=== PATIENT | female | born 1960 | race Caucasian/White ===

== ENCOUNTER 2017-03-05 07:56 | Day surgery (SDC) | payer OTHER ==
--- NOTE | 2017-03-01 19:50 | HP ---
PREOPERATIVE HISTORY AND PHYSICAL: DATE OF ADMISSION: 03/05/17 PROVIDER: Howard Norton MD * (DICTATED BY BO SCHAFER) CHIEF COMPLAINT: Left ankle pain. HISTORY OF PRESENT ILLNESS: Pushpa is a 56-year-old female who has been followed by Dr. Norton for ongoing pain in left ankle secondary to posterior tibial tendonitis. She underwent Kidner procedure with calcaneal osteotomy on 06/12/16. She has done okay; however, she has noticed an increase in forefoot pain as well as some pain in the posterior aspect of her heel. She thinks that the hardware is causing some discomfort and is interested in surgical intervention for hardware removal. PAST MEDICAL HISTORY: 1. Obstructive sleep apnea. 2. Hypertension. 3. Obesity. 4. Mitral valve disorder. 5. Hyperlipidemia. 6. Tricuspid valve disorder. PAST SURGICAL HISTORY: 1. Left foot bunionectomy. 2. Left foot neuroma and scar tissue excision. 3. Malignant melanoma excision in the right upper arm. 3. Dermatofibroma excision. She reports no complications with the anesthesia with those procedures. CURRENT MEDICATIONS: 1. Losartan 25 mg 1 p.o. every day. 2. Ursodiol 300 mg 2 tabs p.o. b.i.d. 3. Levothyroxine sodium 50 mcg 1 p.o. every day. 4. Probiotic 1 p.o. b.i.d. 5. CPAP nightly. 6. Vitamin D3, 1000 units 2 tabs p.o. every day. 7. B12 sublingual daily. ALLERGIES: NICKEL, TRIPLE ANTIBIOTIC OINTMENT, SULFA ANTIBIOTICS, MACROBID, CIPRO, BANDAGES, and CARDIZEM. SOCIAL HISTORY: She lives with her . She is employed at [employer]. She denies tobacco use. She drinks alcoholic beverages rarely. REVIEW OF SYSTEMS: Constitutional: Negative for recent hospitalization, fevers , chills, night sweats, or unexplained weight loss. Head: Negative for headache, lightheadedness, or balance problems. Cardiovascular: Negative for chest or arm pain with exertion. Positive for heart murmur. Negative for heart palpitations. Positive for high blood pressure. Negative for embolism or deep vein thrombosis. Respiratory: Negative for chronic cough, shortness of breath with exertion, asthma, or COPD. Gastrointestinal: Negative for heartburn, nausea, vomiting, diarrhea, constipation, or GERD. Genitourinary: Negative for nighttime urination, frequency of urination, urinary tract infections, or kidney problems. Musculoskeletal: Negative for chronic back pain or recent fractures. Skin: Negative for rashes, lesions, lumps, or sores. Neurologic: Negative for seizure, stroke, epilepsy, depression, or anxiety. Endocrine: Negative for diabetes. Positive for hypothyroidism. Hematology: Negative for easy bleeding, bruising, or anemia. PHYSICAL EXAMINATION GENERAL: She is a well-developed, well-nourished heavy set female, in no acute distress at rest. She is alert and oriented x3 with appropriate mood and affect. VITAL SIGNS: The patient is 5 feet 4-1/2 inches, 211 pounds. Blood pressure 154/84, pulse 66, respirations 14. HEENT: Normocephalic, atraumatic. Hearing and vision are grossly intact. NECK: Trachea is midline. RESPIRATORY: Lungs are clear to auscultation bilaterally. No wheezes, rales, or rhonchi. CARDIOVASCULAR: Regular rate and rhythm. No murmurs, rubs, or gallops. Normal S1, S2. ABDOMEN: Soft, nondistended, and nontender. Normal bowel sounds. EXTREMITIES: Exam of the left lower extremity; skin is intact without abrasions or open wounds. The incisions to the medial, lateral, and posterior aspect of the foot are well healed. She has neutral hindfoot alignment. She has 5/5 hindfoot strength. She is tender to palpation still along the posterior tendon and the plantar aspect of the heel. Sensation to light touch is intact in all nerve distributions. She has a 2+ dorsalis pedis pulse. IMPRESSION: Painful hardware of the left foot. PLAN: The patient is to undergo left foot hardware removal by Dr. Norton . The risk, benefits, and postoperative course were discussed with the patient at length and she would like to proceed. A prescription for oxycodone was sent to her pharmacy for postoperative pain. All of her questions were answered to her full satisfaction. We will follow up with the patient in the postoperative phase. BO SCHAFER [id number]/[facility] #: [id number] SELAM
[~2017-03-05 07:56] MED LIST: Buffered Lidocaine 0.9% SYRIN* 5 ML/SYR SYRINGE INTRADERM ONE; Buffered Lidocaine 0.9% SYRIN* 5 ML/SYR SYRINGE ONE; DiMENhydriNATE IV* 50 MG/ML VIAL IV PUSH PRN; Famotidine IV* 10 MG/ML 2 ML (20 mg) IV ONE; Famotidine IV* 10 MG/ML 2 ML (20 mg) ONE; Morphine INJ* 2 MG/ML 1 ML CARPUJECT IV PRN; Naloxone* 0.4 MG/ML 1 ML VIAL IV PRN; PROCHLORPERAZINE INJ 5 MG/ML 2 ML VIAL IV PRN; Scopolamine 1.5 mg* PATCH TRANSDERM PRN; ceFAZolin 2 GM PREMIX (*) 0 GM/0 ML BAG IVPB ONE; fentaNYL* 50 MCG/ML 2 ML VIAL (100 MCG VIAL) IV PRN; oxyCODONE/Acetamin 5/325 MG* TAB PO PRN
[2017-03-05] MEDS ORDERED: Famotidine IV* 10 MG/ML 2 ML (20 mg) ONE (08:19)
[2017-03-05] MEDS ORDERED: Buffered Lidocaine 0.9% SYRIN* 5 ML/SYR SYRINGE ONE (08:19)
[2017-03-05] MEDS ORDERED: ceFAZolin 2 GM PREMIX (*) 2 GM/50 ML BAG IVPB ONE (08:19)
[2017-03-05] MEDS ORDERED: Midazolam* 1 MG/ML 10 ML VIAL (10 MG) ONE (08:36)
[2017-03-05] MEDS ORDERED: KETAMINE HCL* 50 MG/ML 10 ML VIAL ONE (08:36)
[2017-03-05] MEDS ORDERED: fentaNYL* 50 MCG/ML 2 ML VIAL (100 MCG VIAL) ONE (08:36)
[2017-03-05] MEDS ORDERED: Bupivacaine 0.5% SDV PF* 10-30ML VIAL ONE (09:22)
[2017-03-05] MEDS ORDERED: Ketorolac INJ* 30 MG/ML 1 ML VIAL ONE (09:53)
[2017-03-05] MEDS ORDERED: Propofol* 10 MG/ML 20 ML BTL IV PUSH ONE (09:53)
[2017-03-05] MEDS ORDERED: Ondansetron INJ* 2 MG/ML VIAL ONE (09:53)
[2017-03-05] MEDS ORDERED: Lidocaine 2% PF * 5 ML VIAL ONE (09:53)
[2017-03-05] MEDS ORDERED: Dexamethasone IV* 4 MG/ML 1 ML (4 MG) ONE (09:53)
[2017-03-05 11:51] VITALS: BP 136/83
--- NOTE | 2017-03-06 11:32 | OP ---
DATE OF OPERATION: 03/05/17 - [facility] DATE OF : 58 ATTENDING SURGEON: Howard Norton MD ANESTHESIOLOGIST: Alton Leiva ANESTHESIA: Monitored Anesthesia Care PRE-OP DIAGNOSIS: Painful left heel screw from previous calcaneal osteotomy. POST-OP DIAGNOSIS: Painful left heel screw from previous calcaneal osteotomy ( removal of the screw, left heel). DESCRIPTION OF PROCEDURE: The patient was taken to the operating room where a standard prep and drape was used. We opened up a 1 cm incision through the previous scar at the left heel. The guidepin was placed along the cannulated screw track and then the cannulated screwdriver used to remove the screw. We then irrigated the wound and closed with interrupted Prolene sutures and a compression dressing applied. [id number]/[facility] #: [id number] SELAM
[2017-03-08] MEDS ORDERED: Scopolamine PATCH Remove* 1 NOTE MISC PATCH OFF ONE (05:52)
== END 2017-03-05 11:52 | disposition home or self-care (01) ==
LOC: OR 07:56
PROVIDERS: ATTEND Orthopaedic Surgery
DX: T84.84XA Pain due to internal orthopedic prosthetic devices, implants and grafts, initial encounter (principal); Y83.1 Surgical operation with implant of artificial internal device as the cause of abnormal reaction of the patient, or of later complication, without mention of misadventure at the time of the procedure; M79.672 Pain in left foot; I10 Essential (primary) hypertension; G47.33 Obstructive sleep apnea (adult) (pediatric); E78.5 Hyperlipidemia, unspecified; I08.1 Rheumatic disorders of both mitral and tricuspid valves; R01.1 Cardiac murmur, unspecified; E03.9 Hypothyroidism, unspecified
CPT/HCPCS: 88300; J0690; J1100; J1885; J2250; J2405; J2704; J3010

== ENCOUNTER 2018-07-08 10:55 | Emergency (ER) | payer OTHER ==
--- OUTSIDE RECORDS SUMMARY | 2018-07-08 13:13 | XMS REPORT | Continuity of Care Document ---
:1960 External Reference #:[id number] Author Name Jimbo Catalan M.D. Address [address] [place] [address] Care Team Providers Name Role Phone David Mobley NP Care Team Information Senior Production Supervisor Unavailable David Mobley NP Primary Care Physician Unavailable Payers Date Identification Numbers Payment Provider Subscriber Policy Number: [id number] [employer] Pushpa [place] PayID: [id number] [address] [place] [address] Family History Date Family Member(s) Observation Comments Father Enlarged heart Father due to Heart Attack () Father A-Fib Father High BP Father Glasses Mother Mitral Valve Murmur Mother due to Congestive Heart Failure () Mother High BP Mother CHF Mother Renal Failure Social History Type Date Description Comments Sex Unknown ETOH Use Denies alcohol use Tobacco Use Start: Unknown Patient has never smoked Smoking Status Reviewed: 06/26/18 Patient has never smoked Allergies, Adverse Reactions, Alerts Active Allergies Reaction Severity Comments Date Nickel 06/26/2018 Latex 06/26/2018 Vital Signs Date Vital Result Comment 06/26/2018 10:49am Intraocular Pressure Right Eye 18 mmHg Intraocular Pressure Left Eye 18 mmHg Procedures Date Code Description Status 06/26/2018 80372 Fundus Photography W/Interpretation & Report Completed 06/26/2018 62889 Ophthalmoscopy Initial Completed 06/26/2018 73090 Eye Exam New Comprehensive Completed Plan of Treatment Future Appointment(s):07/15/2018 8:30 am - Jimbo Catalan M.D. at [facility]5106/26/2018 - Jimbo Catalan M.D.H40.023 Open angle with borderline findings, high risk, bilateralFollow up:VF OCT CCT few [id number] Dry eye syndrome of bilateral lacrimal glandsFollow up:VF OCT CCT few weeks
--- OUTSIDE RECORDS SUMMARY | 2018-07-08 13:13 | XMS REPORT | Continuity of Care Document ---
:1960 External Reference #:[id number] Author Name Gerda Llanes Care Team Providers Name Role Phone David Mobley NP Primary Care Physician Unavailable Payers Date Identification Numbers Payment Provider Subscriber Policy Number: [id number] [employer] Number: [id number] [id number] PayID: [id number] [place] [address] Advance Directives Type Date Description Status Comment Other Directive 06/12/2017 Health Care Proxy Current and Verified Problems Active Problems Provider Date Rheumatic mitral regurgitation Erwin Dorado M.D. Onset: 06/12/2013 Tricuspid valve disorder, non-rheumatic Erwin Dorado M.D. Onset: Hyperlipidemia Erwin Dorado M.D. Onset: 06/12/2013 Mitral valve disorder Erwin Dorado M.D. Onset: 07/29/2013 Obesity Anh Gustafson MD Onset: 01/28/2015 Essential hypertension Forrest Meyer M.D. Onset: 03/11/2015 Obstructive sleep apnea syndrome Anh Gustafson MD Onset: 05/20/2015 Infiltrating duct carcinoma of breast David Mobley NP Onset: 03/12/2018 Family History Date Family Member(s) Observation Comments General Thyroiditis Another sister has sarcoidosis and primary biliary cholangiitis Father due to MS () Father MS Mother due to CHF () Mother Congestive Heart Failure (CHF) Mother due to Diabetes () First Son auto immune disease First Daughter Hypothyroidism First Daughter Obesity Second Daughter blot clot clavicular blood clot Onset: Siblings 5 1 sister Sarcoid, PBC (02/2015) 1 sister Teressa's thyroiditis, psoriasis 1 sister Psoriatric arthritis 1 brother dgd 1 brother alive and well First Brother Hypertension First Brother Aortic Stenosis Second Brother Hypertension back surgery First Sister hyperparathyroidism First Sister Lupus Second Sister Cirrhosis bilary Second Sister scarcoidosis breast CA, HTN Third Sister Hypertension hypothyroidism, aneurysym, DM II, obesity, Alcoholism, Psoriasis. 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 ETOH Use Denies alcohol use Tobacco Use Start: Unknown End: Patient is a former 2 years, < 1/2 PPD Unknown smoker quite in 1998 Recreational Drug Use Denies Drug Use Smoking Status Reviewed: 07/01/18 Patient is a former 2 years, < 1/2 PPD smoker quite in 1998 Exercise Type/Frequency Exercises rarely Exercise Type/Frequency walking Allergies, Adverse Reactions, Alerts Active Allergies Reaction Severity Comments Date Triple Antibiotic lip swelling, nose 06/12/2013 Ointment swelling at application site Sulfa Antibiotics hives 06/12/2013 Macrobid 09/24/2013 Cipro 03/11/2015 Bandages 04/02/2015 Cardizem CD SOB,nausea, chest Severe 05/06/2015 pain Nickel blistering,itching 04/18/2017 Psyllium hives 12/07/2017 Amoxicillin Hives 01/28/2018 Eggs or Egg-derived 04/09/2018 Products Medications Active Medications SIG Qnty Indications Ordering Date Provider Lasix 1 tab by mouth x1 14tabs I42.9 Yael S. 06/13/2018 20mg Tablets and then prn Deejay, N.P. Wrist Splint use daily to help 2units M35.01 Manny Pickett, 04/09/2018 Misc with numbness and M.D. tingling in the right hand Diagnosis g56.01 Metoprolol Succinate 1 tab by mouth 90tabs I42.9 Forrest Myers 12/07/2017 ER every day Lizeth Meyer 25mg Tablets ER 24HR Losartan Potassium 1 by mouth every 90tabs Yael S. 11/06/2017 25mg day Deejay, N.P. Tablets Diphenhydramine HCL Unknown 25mg Tablets Colace 1 tab every 12 Unknown 100mg Capsules hours as needed for constipation Ondansetron dissolve one tablet Unknown 4mg Tablets orally every 8 Dispers hours as needed for nausea. TC Chemo Unknown Levothyroxine Sodium Take 1 Tablet By 90tabs David Mobley NP Mouth Every Day 50mcg Tablets Vitamin D3 High 1 by mouth every Unknown Potency day 1000Unit Capsules Cpap nightly Unknown Device Ursodiol 2 by mouth am and 180caps Unknown 300mg Capsules pm History Medications Calcipotriene apply a thin 60gm L40.9 Manny Pickett, 04/09/2018 - 0.005% layer twice daily M.D. 06/12/2018 Cream as needed for psoriasis Oxycodone HCL 1 tabs by mouth 14tabs Howard Norton 02/27/2017 - 5mg every 6 hours as M.D. 10/05/2017 Tablets needed Losartan Potassium 2 by mouth every 90tabs Forrest Myers 02/07/2017 - 25mg day Lizeth Meyer 11/06/2017 Tablets Augmentin 1 tablet by mouth 20tabs H66.92 David Mobley NP 02/07/2017 - 875-125mg q12 hours for 10 02/18/2017 Tablets days Neomycin/Polymyxin/Hy 4 drops in each 30ml H60.8x2 David Mobley NP 2016 - drocortisone (Otic) ear four times a 02/21/2017 day for 7 days 3.5-22963-5 Solution Lisinopril 1 by mouth every 90tabs David Mobley NP 08/09/2016 - 10mg Tablets day 02/07/2017 Knee Scooter M76.822 Howard Norton, 06/23/2016 - M.D. 09/14/2016 Oxycodone HCL 1-2 tabs by mouth 40tabs Howard Norton 06/02/2016 - 5mg every 4-6 hours M.D. 06/17/2016 Tablets as needed Walker use as needed for 1units M76.822 Howard Norton, 05/31/2016 - [facility] [place] M.D. 01/17/2017 bearing after surgery D3 High Potency 2 tablets Unknown 01/24/2016 - 01/26/2016 1000Unit Capsules Atenolol 1/2 tab by mouth 45tabs Forrest Myers 04/08/2015 - 25mg Tablets every day Lizeth Meyer 01/24/2016 Cardizem CD 1 by mouth once a 30caps I10 Forrest Myers 04/02/2015 - 120mg Caps day Lizeth Meyer 04/08/2015 ER 24HR Atenolol 1 by mouth every 90tabs I10 Forrest Myers 03/11/2015 - 25mg Tablets day Lizeth Meyer 04/02/2015 Omeprazole 1 by mouth daily Unknown 01/27/2015 - 20mg Tablets in the morning in 03/10/2015 empty stomach Neulasta Unknown - 6mg/0.6ML Soln 06/12/2018 Prefill Syringe Vitamin B12 SL daily Unknown - 3000mcg/ML 06/12/2018 Liquid Vitamin B12/Folic 1 every day ( pt Unknown - Acid not sure about 01/27/2018 Tablets dosage) Tumersaid 1 by mouth daily Unknown - Tablets 10/05/2017 Vitamin B-12 1 by mouth every Unknown - 100mcg day 10/05/2017 Tablets [place] Oil apply as needed Unknown - Oil 09/14/2016 Tumersaid 1 po daily Unknown - Tablets 12/04/2016 Bee 4 tab po daily Unknown - Buceaq-Wgtfbtip-Bcrnh prn 05/23/2016 jelly Tablets Vitamin B 12 sublingual prn Unknown - 12/04/2016 Curcumin Extract one daily Unknown - 95% 01/26/2016 Powder Probiotic 1 by mouth every Unknown - Capsules day 10/05/2017 Prednisone (Phong) take as directed Unknown - 10mg 03/10/2015 Tablets Doxycycline Hyclate one tablet twice Unknown - daily for 10 03/10/2015 100mg Capsules days. Lisinopril 1 by mouth every Unknown - 2.5mg day (restarted 01/27/2015 Tablets 08/23) Zinc every day Unknown - 50mg Tablets 01/27/2015 Vitamin D High 1 by mouth every Unknown - Potency day 08/21/2013 1000Unit Capsules Hydroxyzine HCL prn Unknown - 25mg 08/07/2013 Tablets Clarisse-D 24 Hour 1 by mouth daily 30tabs Unknown - Allergy & Congestion as needed for 08/07/2013 allergy symptoms 180-240mg Tablets ER 24HR Doxycycline Hyclate 1 by mouth every 10tabs Unknown - day 07/29/2013 100mg Tablets Immunizations CPT Code Status Date Vaccine Reaction Lot # [id number] Given 11/09/2017 Influenza Virus Vaccine, Quadrivalent, Split, Preservative Free 84160 Given 11/24/2016 Zoster (Zostavax) No immediate [id number] reaction.. 52700 Given 11/18/2014 Influenza Virus 3Yrs & Over Vital Signs Date Vital Result Comment 07/01/2018 7:09am Height 64.25 inches 5'4.25" Weight 219.50 lb Heart Rate 56 /min BP Systolic Sitting 116 mmHg Lue large cuff BP Diastolic Sitting 70 mmHg Lue large cuff Respiratory Rate 12 /min O2 % BldC Oximetry 97 % BMI (Body Mass Index) 37.4 kg/m2 Neck Circumference in inches 15.50 06/13/2018 8:42am Height 64.25 inches 5'4.25" Weight 215.75 lb Clothes/shoes Heart Rate 76 /min BP Systolic Sitting 158 mmHg left arm BP Diastolic Sitting 100 mmHg left arm BP Systolic Standing 154 mmHg left arm BP Diastolic Standing 100 mmHg left arm BMI (Body Mass Index) 36.7 kg/m2 Ejection Fraction 65-70% Echo 11/30/2017 05/16/2018 2:48pm Height 64.25 inches 5'4.25" Weight 197.50 lb Heart Rate 80 /min BP Systolic 112 mmHg BP Diastolic 76 mmHg Body Temperature 98.3 F O2 % BldC Oximetry 94 % BMI (Body Mass Index) 33.6 kg/m2 05/13/2018 1:29pm Height 64.25 inches 5'4.25" Weight 212.12 lb Heart Rate 85 /min BP Systolic 126 mmHg BP Diastolic 78 mmHg Pain Level 3 O2 % BldC Oximetry 97 % BMI (Body Mass Index) 36.1 kg/m2 04/09/2018 9:28am Height 64.25 inches 5'4.25" Weight 215.00 lb Heart Rate 71 /min BP Systolic Sitting 144 mmHg BP Diastolic Sitting 86 mmHg Respiratory Rate 14 /min Pain Level 2 BMI (Body Mass Index) 36.6 kg/m2 01/29/2018 10:01am Height 64.25 inches 5'4.25" Weight 207.25 lb Heart Rate 64 /min BP Systolic Sitting 138 mmHg Lue large cuff BP Diastolic Sitting 78 mmHg Lue large cuff Respiratory Rate 14 /min O2 % BldC Oximetry 97 % On Ra BMI (Body Mass Index) 35.3 kg/m2 01/28/2018 8:41am Height 64.25 inches 5'4.25" Weight 207.50 lb no shoes Heart Rate 76 /min left radial, regular BP Systolic Sitting 165 mmHg lt arm BP Diastolic Sitting 100 mmHg lt arm BP Systolic Standing 139 mmHg repeat left arm sitting BP Diastolic Standing 82 mmHg repeat left arm sitting BMI (Body Mass Index) 35.3 kg/m2 Ejection Fraction 65-70% ech0 11/30/17 12/07/2017 7:52am Height 64.25 inches 5'4.25" Weight 209.00 lb w/ shoes Heart Rate 52 /min BP Systolic Sitting 150 mmHg Lue reg cuff BP Diastolic Sitting 85 mmHg Lue reg cuff BP Systolic Standing 150 mmHg Lue reg cuff BP Diastolic Standing 90 mmHg Lue reg cuff Respiratory Rate 18 /min BMI (Body Mass Index) 35.6 kg/m2 Ejection Fraction 65-70% 11/30/17 ECHO 11/06/2017 11:03am Height 64.25 inches 5'4.25" Weight 209.00 lb w/o shoes Heart Rate 60 /min BP Systolic Sitting 152 mmHg Lue lg cuff BP Diastolic Sitting 90 mmHg Lue lg cuff BP Systolic Standing 148 mmHg lue repeat sitting BP Diastolic Standing 80 mmHg lue repeat sitting BMI (Body Mass Index) 35.6 kg/m2 Ejection Fraction 60-65% Echo 06/07/16 10/05/2017 11:34am Height 64.25 inches 5'4.25" Weight 209.00 lb with shoes Heart Rate 68 /min BP Systolic 126 mmHg BP Diastolic 72 mmHg Body Temperature 98.1 F O2 % BldC Oximetry 98 % BMI (Body Mass Index) 35.6 kg/m2 04/18/2017 4:13pm Height 64.25 inches 5'4.25" Heart Rate 68 /min BP Systolic 132 mmHg BP Diastolic 80 mmHg Respiratory Rate 16 /min Pain Level 2 03/15/2017 11:22am Height 64.25 inches 5'4.25" Weight 206.00 lb Heart Rate 67 /min BP Systolic 128 mmHg BP Diastolic 76 mmHg Respiratory Rate 17 /min Body Temperature 97.5 F Pain Level 0 BMI (Body Mass Index) 35.1 kg/m2 02/27/2017 11:32am Height 64.25 inches 5'4.25" Weight 211.00 lb Heart Rate 66 /min Respiratory Rate 14 /min Body Temperature 97.2 F Pain Level 3 BMI (Body Mass Index) 35.9 kg/m2 02/22/2017 3:23pm Height 64.25 inches 5'4.25" Weight 211.12 lb with shoes Heart Rate 72 /min BP Systolic Sitting 158 mmHg LA, reg cuff BP Diastolic Sitting 84 mmHg LA, reg cuff BP Systolic Standing 138 mmHg la repeat sitting BP Diastolic Standing 72 mmHg la repeat sitting BMI (Body Mass Index) 36.0 kg/m2 Ejection Fraction 60%-65% echo 06/07/16 02/07/2017 2:56pm Height 64.25 inches 5'4.25" Weight 208.75 lb Heart Rate 75 /min BP Systolic 140 mmHg BP Diastolic 80 mmHg BP Systolic Recheck 132 mmHg BP Diastolic Recheck 82 mmHg Body Temperature 97.9 F O2 % BldC Oximetry 97 % BMI (Body Mass Index) 35.5 kg/m2 01/26/2017 1:54pm Height 64.5 inches 5'4.50" Weight 208.00 lb BP Systolic 124 mmHg BP Diastolic 76 mmHg Respiratory Rate 18 /min Body Temperature 98.3 F Pain Level 3 BMI (Body Mass Index) 35.1 kg/m2 01/18/2017 3:13pm Height 64.5 inches 5'4.50" Weight 215.00 lb Heart Rate 68 /min BP Systolic Sitting 122 mmHg BP Diastolic Sitting 84 mmHg Respiratory Rate 14 /min O2 % BldC Oximetry 99 % BMI (Body Mass Index) 36.3 kg/m2 01/12/2017 3:03pm Height 64.5 inches 5'4.50" Weight 208.00 lb Heart Rate 64 /min BP Systolic 122 mmHg BP Diastolic 80 mmHg Body Temperature 97.4 F Pain Level 2 BMI (Body Mass Index) 35.1 kg/m2 12/22/2016 3:25pm Height 64.5 inches 5'4.50" Weight 208.00 lb BP Systolic 128 mmHg BP Diastolic 84 mmHg Respiratory Rate 20 /min Pain Level 5 BMI (Body Mass Index) 35.1 kg/m2 12/21/2016 3:18pm Height 64.5 inches 5'4.50" Weight 208.00 lb BMI (Body Mass Index) 35.1 kg/m2 12/05/2016 2:56pm Height 64.5 inches 5'4.50" Weight 207.00 lb w/o shoes Heart Rate 66 /min BP Systolic Sitting 136 mmHg LA reg cuff BP Diastolic Sitting 84 mmHg LA reg cuff BMI (Body Mass Index) 35.0 kg/m2 Ejection Fraction 60% -65% echo 06/07/16 11/17/2016 3:45pm Heart Rate 60 /min BP Systolic Sitting 135 mmHg BP Diastolic Sitting 95 mmHg Body Temperature 97.8 F Pain Level 3 09/15/2016 3:49pm Height 65.25 inches 5'5.25" Weight 208.00 lb Heart Rate 62 /min BP Systolic 130 mmHg BP Diastolic 85 mmHg Body Temperature 98.2 F Pain Level 3 BMI (Body Mass Index) 34.3 kg/m2 08/17/2016 8:52am Height 64 inches 5'4" Weight 210.00 lb BP Systolic 122 mmHg BP Diastolic 87 mmHg Respiratory Rate 16 /min Body Temperature 97.6 F Pain Level 0 BMI (Body Mass Index) 36.0 kg/m2 07/21/2016 9:56am Height 64 inches 5'4" Weight 210.00 lb Heart Rate 72 /min BP Systolic 140 mmHg BP Diastolic 84 mmHg Respiratory Rate 16 /min Body Temperature 98.3 F Pain Level 0 BMI (Body Mass Index) 36.0 kg/m2 07/14/2016 10:13am Height 64 inches 5'4" Weight 210.00 lb Heart Rate 70 /min BP Systolic 134 mmHg BP Diastolic 81 mmHg Body Temperature 97.9 F BMI (Body Mass Index) 36.0 kg/m2 07/07/2016 3:36pm Height 64 inches 5'4" Weight 210.00 lb BP Systolic 142 mmHg BP Diastolic 91 mmHg Body Temperature 98.0 F Pain Level 0 BMI (Body Mass Index) 36.0 kg/m2 06/23/2016 9:36am Height 64 inches 5'4" Weight 210.00 lb BP Systolic 137 mmHg BP Diastolic 71 mmHg Respiratory Rate 16 /min Body Temperature 97.1 F Pain Level 1 BMI (Body Mass Index) 36.0 kg/m2 06/20/2016 2:09pm Height 64 inches 5'4" Weight 210.00 lb Body Temperature 98.7 F Pain Level 4 BMI (Body Mass Index) 36.0 kg/m2 05/31/2016 8:58am Height 64 inches 5'4" Weight 210.00 lb Heart Rate 61 /min BP Systolic 130 mmHg BP Diastolic 70 mmHg Respiratory Rate 16 /min Body Temperature 96.8 F Pain Level 2 BMI (Body Mass Index) 36.0 kg/m2 05/30/2016 10:08am Weight 210.75 lb Heart Rate 81 /min BP Systolic 144 mmHg BP Diastolic 82 mmHg Body Temperature 97.9 F O2 % BldC Oximetry 98 % 05/24/2016 11:40am Height 64 inches 5'4" Weight 207.00 lb w/shoes Heart Rate 64 /min BP Systolic Sitting 142 mmHg LA lg cuff BP Diastolic Sitting 80 mmHg LA lg cuff BP Systolic Standing 138 mmHg la repeat sitting BP Diastolic Standing 71 mmHg la repeat sitting BMI (Body Mass Index) 35.5 kg/m2 Ejection Fraction 55% Stress Test 08/19/15 05/17/2016 3:24pm Height 64 inches 5'4" Heart Rate 76 /min BP Systolic 126 mmHg BP Diastolic 76 mmHg Respiratory Rate 20 /min Pain Level 1 at rest O2 % BldC Oximetry 97 % 03/17/2016 3:33pm Height 64 inches 5'4" Weight 206.00 lb Heart Rate 64 /min Respiratory Rate 13 /min Pain Level 1 BMI (Body Mass Index) 35.4 kg/m2 01/27/2016 2:49pm Height 64 inches 5'4" Weight 206.00 lb with shoes Heart Rate 68 /min BP Systolic Sitting 138 mmHg LA reg cuff BP Diastolic Sitting 82 mmHg LA reg cuff BMI (Body Mass Index) 35.4 kg/m2 Ejection Fraction 55% stress test 08/19/15 01/25/2016 3:22pm Heart Rate 91 /min BP Systolic 118 mmHg BP Diastolic 74 mmHg Respiratory Rate 14 /min O2 % BldC Oximetry 97 % 01/17/2016 4:06pm Heart Rate 70 /min BP Systolic Sitting 122 mmHg BP Diastolic Sitting 80 mmHg Respiratory Rate 15 /min O2 % BldC Oximetry 98 % 01/07/2016 11:36am Height 64 inches 5'4" Weight 206.00 lb Heart Rate 66 /min BP Systolic 122 mmHg BP Diastolic 72 mmHg Body Temperature 97.5 F O2 % BldC Oximetry 98 % BMI (Body Mass Index) 35.4 kg/m2 12/16/2015 9:17am Height 65 inches 5'5" Weight 211.00 lb Pain Level 1 BMI (Body Mass Index) 35.1 kg/m2 07/20/2015 3:13pm Height 65 inches 5'5" Weight 204.75 lb Heart Rate 58 /min BP Systolic 124 mmHg BP Diastolic 86 mmHg Respiratory Rate 14 /min O2 % BldC Oximetry 98 % BMI (Body Mass Index) 34.1 kg/m2 06/14/2015 2:54pm Height 65 inches 5'5" Weight 204.75 lb with shoes Heart Rate 70 /min BP Systolic 130 mmHg LA reg cuff BP Diastolic 78 mmHg LA reg cuff BMI (Body Mass Index) 34.1 kg/m2 Ejection Fraction 60%-65% echo 05/24/15 05/20/2015 3:21pm Height 65 inches 5'5" Weight 206.00 lb Heart Rate 67 /min BP Systolic Sitting 142 mmHg BP Diastolic Sitting 78 mmHg Respiratory Rate 14 /min O2 % BldC Oximetry 98 % BMI (Body Mass Index) 34.3 kg/m2 05/06/2015 2:53pm Height 65 inches 5'5" Weight 206.00 lb with shoes BP Systolic Sitting 156 mmHg LA lg cuff BP Diastolic Sitting 76 mmHg LA lg cuff BP Systolic Standing 146 mmHg LA lg cuff BP Diastolic Standing 82 mmHg LA lg cuff BMI (Body Mass Index) 34.3 kg/m2 Ejection Fraction 55-60% date 08/29/13 ECHO 04/02/2015 2:51pm Height 65 inches 5'5" Weight 201.00 lb with out shoes Heart Rate 60 /min BP Systolic 126 mmHg home monitor BP Diastolic 69 mmHg home monitor BP Systolic Sitting 128 mmHg LA lrg cuff BP Diastolic Sitting 74 mmHg LA lrg cuff BP Systolic Standing 128 mmHg LA lrg cuff BP Diastolic Standing 78 mmHg LA lrg cuff Respiratory Rate 16 /min BMI (Body Mass Index) 33.4 kg/m2 Ejection Fraction 55-60% 08/29/13 03/11/2015 3:08pm Height 65 inches 5'5" Weight 200.25 lb w/shoes Heart Rate 70 /min BP Systolic Sitting 130 mmHg LA reg cuff BP Diastolic Sitting 90 mmHg LA reg cuff BP Systolic Lying Down 151 mmHg la sitting repeat BP Diastolic Lying Down 85 mmHg la sitting repeat BMI (Body Mass Index) 33.3 kg/m2 Ejection Fraction 55-60 echo 08/29/13 02/02/2015 4:43pm Height 65 inches 5'5" Weight 197.00 lb BMI (Body Mass Index) 32.8 kg/m2 01/28/2015 3:24pm Height 65 inches 5'5" Weight 197.38 lb Heart Rate 73 /min BP Systolic 130 mmHg BP Diastolic 80 mmHg Respiratory Rate 14 /min O2 % BldC Oximetry 96 % BMI (Body Mass Index) 32.8 kg/m2 Neck Circumference in inches 14.5 12/31/2014 4:00pm Height 65 inches 5'5" Weight 195.00 lb Pain Level 5 BMI (Body Mass Index) 32.4 kg/m2 09/24/2013 1:50pm Height 65 inches 5'5" Weight 191.75 lb Heart Rate 72 /min BP Systolic Sitting 114 mmHg left, reg BP Diastolic Sitting 78 mmHg left, reg BMI (Body Mass Index) 31.9 kg/m2 09/02/2013 11:59am Height 65 inches 5'5" Weight 191.75 lb Heart Rate 72 /min BP Systolic Sitting 130 mmHg left, reg BP Diastolic Sitting 84 mmHg left, reg BMI (Body Mass Index) 31.9 kg/m2 08/21/2013 2:29pm Height 65 inches 5'5" Weight 191.25 lb Heart Rate 80 /min BP Systolic Sitting 154 mmHg BP Diastolic Sitting 88 mmHg Respiratory Rate 15 /min BMI (Body Mass Index) 31.8 kg/m2 08/07/2013 3:15pm Heart Rate 72 /min BP Systolic Sitting 110 mmHg BP Diastolic Sitting 82 mmHg Respiratory Rate 16 /min 06/12/2013 1:34pm Height 65 inches 5'5" Weight 195.00 lb Heart Rate 68 /min BP Systolic 140 mmHg right arm, reg cuff BP Diastolic 86 mmHg right arm, reg cuff BP Systolic Sitting 144 mmHg left arm, reg cuff BP Diastolic Sitting 82 mmHg left arm, reg cuff BP Systolic Standing 140 mmHg left arm, reg cuff BP Diastolic Standing 82 mmHg left arm, reg cuff Respiratory Rate 16 /min BMI (Body Mass Index) 32.4 kg/m2 Results Test Date Facility Test Result H/L Range Note CBC Auto Diff 06/12/2018 [facility] White Blood 9.4 10^3/uL N 3.5-10.[address] [place] [address] [phone] Red Blood Count 3.53 10^6/uL Low 3.70-4.87 Hemoglobin 11.2 g/dL Low 12.0-16.0 Hematocrit 34 % Low 35-47 Mean Corpuscular Volume 95 fL N 80-97 Mean Corpuscular Hemoglobin 32 pg High 27-31 Mean Corpuscular HGB Conc 33 g/dL N 31-36 Red Cell Distribution Width 17 % High 10.5-15 Platelet Count 283 10^3/uL N 150-450 Mean Platelet Volume 8.9 fL N 7.4-10.4 Abs Neutrophils 7.0 10^3/uL N 1.5-7.7 Abs Lymphocytes 1.1 10^3/uL N 1.0-4.8 Abs Monocytes 1.2 10^3/uL High 0-0.8 Abs Eosinophils 0 10^3/uL N 0-0.6 Abs Basophils 0.1 10^3/uL N 0-0.2 Abs Nucleated RBC 0 10^3/uL Granulocyte % 74.4 % Lymphocyte % 11.2 % Monocyte % 12.9 % Eosinophil % 0.1 % Basophil % 1.4 % Nucleated Red Blood Cells % 0.2 Comp Metabolic Panel 06/12/2018 [facility] Sodium 140 mmol/L N 135-[address] [place] [address] [phone] Potassium 4.6 mmol/L N 3.5-5.0 Chloride 106 mmol/L N 101-111 Co2 Carbon Dioxide 26 mmol/L N 22-32 Anion Gap 8 mmol/L N 2-11 Glucose 94 mg/dL N 70-100 Blood Urea Nitrogen 19 mg/dL N 6-24 Creatinine 0.75 mg/dL N 0.51-0.95 BUN/Creatinine Ratio 25.3 High 8-20 Calcium 9.4 mg/dL N 8.6-10.3 Total Protein 6.7 g/dL N 6.4-8.9 Albumin 4.2 g/dL N 3.2-5.2 Globulin 2.5 g/dL N 2-4 Albumin/Globulin Ratio 1.7 N 1-3 Total Bilirubin 0.40 mg/dL N 0.2-1.0 Alkaline Phosphatase 131 U/L High 34-104 Alt 17 U/L N 7-52 Ast 25 U/L N 13-39 Egfr Non- 79.4 >60 Egfr 96.0 >60 1 Ssa/SSB Abs Igg 04/09/2018 [facility] SS-A/Ro Antibody <0.2 U [address] [place] [address] [phone] SS-B/La Antibody <0.2 U 3 Hla B27 04/09/2018 [facility] Hla B27 Negative [address] [place] [address] [phone] Hla B27 Interp See Comment 5 Laboratory test 04/09/2018 [facility] Vitamin D 37.4 ng/mL N 20-50 [address] Total 25(Oh) [place], [place] [id number] [phone] Erythrocyte Sed Rate 58 mm/Hr High 0-30 7 C Reactive Protein 7.83 mg/L N <8.01 8 Vitamin B6 04/09/2018 [facility] Pyridoxal 5-Phosphate 7 g/L 5-[address] [place], [place] [id number] [phone] Pyridoxic Acid 4 g/L 3-30 10 Celiac Hla 04/09/2018 [facility] Hla-Dqa1 SEE BELOW [address] [place], [place] [id number] [phone] [id number] SEE BELOW 12 Celiac Gene Pairs Present? Equivocal Celiac Gene Interpretation See Comment 13 Anca AB Ser If 04/09/2018 [facility] C-Anca Negative Negative [address] [place] [address] [phone] P-Anca Negative Negative 14 Vitamin B12 04/09/2018 [facility] Vitamin B12 > 1450 High 180- 914 [address] pg/[place] [address] [phone] Folic Acid (Folate) > 20.00 ng/mL >3.99 16 Laboratory 04/09/2018 [facility] Thyroperoxidase AB 0.34 IU/mL N <9 17 test finding [address] [place] [address] [phone] CMV Igg/Igm 04/09/2018 [facility] Cytomegalovirus Negative Negative [address] [place] [address] [phone] Cytomegalovirus IgM Antibody Negative Negative Comp Metabolic Panel 10/05/2017 [facility] Sodium 142 mmol/L N 135-[address] [place] [address] [phone] Potassium 4.3 mmol/L N 3.5-5.0 Chloride 106 mmol/L N 101-111 Co2 Carbon Dioxide 28 mmol/L N 22-32 Anion Gap 8 mmol/L N 2-11 Glucose 112 mg/dL High 70-100 Blood Urea Nitrogen 17 mg/dL N 6-24 Creatinine 0.79 mg/dL N 0.51-0.95 BUN/Creatinine Ratio 21.5 High 8-20 Calcium 10.1 mg/dL N 8.6-10.3 Total Protein 7.5 g/dL N 6.4-8.9 Albumin 4.6 g/dL N 3.2-5.2 Globulin 2.9 g/dL N 2-4 Albumin/Globulin Ratio 1.6 N 1-3 Total Bilirubin 0.40 mg/dL N 0.2-1.0 Alkaline Phosphatase 136 U/L High 34-104 Alt 25 U/L N 7-52 Ast 31 U/L N 13-39 Egfr Non- 75.0 >60 Egfr 90.8 >60 19 CBC Auto Diff 10/05/2017 [facility] White Blood 8.7 10^3/uL N 3.5-10.[address] [place] [address] [phone] Red Blood Count 3.94 10^6/uL Low 4.00-5.40 Hemoglobin 12.5 g/dL N 12.0-16.0 Hematocrit 37 % N 35-47 Mean Corpuscular Volume 93 fL N 80-97 Mean Corpuscular Hemoglobin 32 pg High 27-31 Mean Corpuscular HGB Conc 34 g/dL N 31-36 Red Cell Distribution Width 13 % N 10.5-15 Platelet Count 379 10^3/uL N 150-450 Mean Platelet Volume 9.7 um3 N 7.4-10.4 Abs Neutrophils 5.5 10^3/uL N 1.5-7.7 Abs Lymphocytes 2.4 10^3/uL N 1.0-4.8 Abs Monocytes 0.6 10^3/uL N 0-0.8 Abs Eosinophils 0.2 10^3/uL N 0-0.6 Abs Basophils 0.1 10^3/uL N 0-0.2 Abs Nucleated RBC 0 10^3/uL Granulocyte % 62.8 % N 38-83 Lymphocyte % 27.5 % N 25-47 Monocyte % 6.6 % N 0-7 Eosinophil % 2.1 % N 0-6 Basophil % 1.0 % N 0-2 Nucleated Red Blood Cells % 0.1 Laboratory test 10/05/2017 [facility] TSH (Thyroid 2.23 mcIU/mL N 0.34-5.[address] Stim [place]) [place] [address] [phone] Lyme Disease Serology Negative Negative 20 Vitamin B12 404 pg/mL N 180-914 21 Urinalysis Profile 10/05/2017 [facility] Urine Color Yellow 101 [place] [address] [phone] Urine Appearance Clear Urine Specific Bowen 1.009 Low 1.010-1.030 Urine pH 5.0 N 5-9 Urine Urobilinogen Negative Negative Urine Ketones Negative Negative Urine Protein Negative Negative Urine Leukocytes Negative Negative Urine Blood 1+ Abnormal Negative Urine Nitrite Negative Negative Urine Bilirubin Negative Negative Urine Glucose Negative Negative Urine White Blood Cell Trace(0-5/hpf) Absent Urine Red Blood Cell Trace(0-2/hpf) Absent Urine Bacteria Absent Absent Connective Tissue 10/05/2017 [facility] Anti-Nuclear 1.0 U [address] [place] [address] [phone] Cyclic Citrullinated Peptide <15.6 U 23 Interpretation See Comment 24 Laboratory test 10/05/2017 [facility] Rheumatoid Factor < 10 IU/ mL N <[address] [place] [address] [phone] Erythrocyte Sed Rate 61 mm/Hr High 0-30 C Reactive Protein 9.01 mg/L High <8.01 Hemoglobin A1c (Glyco HGB) 5.5 % N 4.0-5.6 25 Urine Culture And 10/05/2017 [facility] Urine Culture SEE RESULT [address] [place] [address] [phone] Laboratory test 03/05/2017 [facility] Surgical SEE RESULT [address] [place] [address] [phone] Liver Function 03/03/2017 [facility] Total Protein 7.5 g/dL N 6.4-[address] [place] [address] [phone] Albumin 4.5 g/dL N 3.2-5.2 Globulin 3.0 g/dL N 2-4 Albumin/Globulin Ratio 1.5 N 1-3 Total Bilirubin 0.50 mg/dL N 0.2-1.0 Direct Bilirubin 0.10 mg/dL N 0.03-0.18 Indirect Bilirubin 0.4 mg/dL N 0.3-1.0 Alkaline Phosphatase 119 U/L High 34-104 Alt 21 U/L N 7-52 Ast 30 U/L N 13-39 CBC Auto Diff 02/07/2017 [facility] White Blood 10.1 10^3/uL N 3.5-10.[address] [place] [address] [phone] Red Blood Count 3.99 10^6/uL Low 4.0-5.4 Hemoglobin 12.4 g/dL N 12.0-16.0 Hematocrit 37 % N 35-47 Mean Corpuscular Volume 92 fL N 80-97 Mean Corpuscular Hemoglobin 31 pg N 27-31 Mean Corpuscular HGB Conc 34 g/dL N 31-36 Red Cell Distribution Width 13 % N 10.5-15 Platelet Count 375 10^3/uL N 150-450 Mean Platelet Volume 9 um3 N 7.4-10.4 Abs Neutrophils 6.2 10^3/uL N 1.5-7.7 Abs Lymphocytes 2.9 10^3/uL N 1.0-4.8 Abs Monocytes 0.7 10^3/uL N 0-0.8 Abs Eosinophils 0.2 10^3/uL N 0-0.6 Abs Basophils 0.1 10^3/uL N 0-0.2 Abs Nucleated RBC 0 10^3/uL Granulocyte % 61.4 % N 38-83 Lymphocyte % 28.8 % N 25-47 Monocyte % 6.8 % N 1-9 Eosinophil % 2.1 % N 0-6 Basophil % 0.9 % N 0-2 Nucleated Red Blood Cells % 0 Laboratory test 02/07/2017 [facility] Vitamin B12 284 pg/mL N 180-[address] [place] [address] [phone] Laboratory test 12/30/2016 [facility] TSH (Thyroid 2.63 N 0.34 -5.[address] Stim Horm) mcIU/[place] [address] [phone] Basic Metabolic 12/30/2016 [facility] Sodium 138 mmol/L N 133- [address] [place] [address] [phone] Potassium 4.6 mmol/L N 3.5-5.0 Chloride 103 mmol/L N 101-111 Co2 Carbon Dioxide 28 mmol/L N 22-32 Anion Gap 7 mmol/L N 2-11 Glucose 101 mg/dL High 70-100 Blood Urea Nitrogen 19 mg/dL N 6-24 Creatinine 0.87 mg/dL N 0.51-0.95 BUN/Creatinine Ratio 21.8 High 8-20 Calcium 9.9 mg/dL N 8.6-10.3 Egfr Non- 67.1 >60 Egfr 86.3 >60 30 Lipid Profile 12/30/2016 [facility] Triglycerides 173 mg/dL 31 (Trig/Chol/HDL) [address] [place] [address] [phone] Cholesterol 268 mg/dL 32 HDL Cholesterol 53.7 mg/dL 33 LDL Cholesterol 180 mg/dL 34 Laboratory test 06/12/2016 [facility] Surgical SEE RESULT [address] [place] [address] [phone] CBC Auto Diff 05/30/2016 [facility] White Blood 8.0 10^3/uL N 3.5-[address] Count [address] [place] [address] [phone] Red Blood Count 3.94 10^6/uL Low 4.0-5.4 Hemoglobin 12.2 g/dL N 12.0-16.0 Hematocrit 36 % N 35-47 Mean Corpuscular Volume 92 fL N 80-97 Mean Corpuscular Hemoglobin 31 pg N 27-31 Mean Corpuscular HGB Conc 34 g/dL N 31-36 Red Cell Distribution Width 13 % N 10.5-15 Platelet Count 373 10^3/uL N 150-450 Mean Platelet Volume 10 um3 N 7.4-10.4 Abs Neutrophils 4.7 10^3/uL N 1.5-7.7 Abs Lymphocytes 2.5 10^3/uL N 1.0-4.8 Abs Monocytes 0.5 10^3/uL N 0-0.8 Abs Eosinophils 0.2 10^3/uL N 0-0.6 Abs Basophils 0.1 10^3/uL N 0-0.2 Abs Nucleated RBC 0 10^3/uL N Granulocyte % 58.3 % N 38-83 Lymphocyte % 30.7 % N 25-47 Monocyte % 6.8 % N 1-9 Eosinophil % 2.8 % N 0-6 Basophil % 1.4 % N 0-2 Nucleated Red Blood Cells % 0.1 N Comp Metabolic Panel 05/30/2016 [facility] Sodium 138 mmol/L N 133-145 [address] [place] [address] [phone] Potassium 4.8 mmol/L N 3.5-5.0 Chloride 103 mmol/L N 101-111 Co2 Carbon Dioxide 29 mmol/L N 22-32 Anion Gap 6 mmol/L N 2-11 Glucose 88 mg/dL N 70-100 Blood Urea Nitrogen 19 mg/dL N 6-24 Creatinine 0.82 mg/dL N 0.51-0.95 BUN/Creatinine Ratio 23.2 High 8-20 Calcium 10.2 mg/dL N 8.6-10.3 Total Protein 7.5 g/dL N 6.4-8.9 Albumin 4.5 g/dL N 3.2-5.2 Globulin 3.0 g/dL N 2-4 Albumin/Globulin Ratio 1.5 N 1-3 Total Bilirubin 0.40 mg/dL N 0.2-1.0 Alkaline Phosphatase 101 U/L N 34-104 Alt 20 U/L N 7-52 Ast 28 U/L N 13-39 Egfr Non- 72.1 N >60 Egfr 92.7 N >60 36 Inr/Protime 05/30/2016 [facility] Inr 0.86 Low 0.89-1.[address] [place] [address] [phone] Comp Metabolic 01/07/2016 [facility] Sodium 137 mmol/L N 133- [address] [place] [address] [phone] Potassium 4.2 mmol/L N 3.5-5.0 Chloride 103 mmol/L N 101-111 Co2 Carbon Dioxide 27 mmol/L N 22-32 Anion Gap 7 mmol/L N 2-11 Glucose 89 mg/dL N 70-100 Blood Urea Nitrogen 19 mg/dL N 6-24 Creatinine 0.82 mg/dL N 0.51-0.95 BUN/Creatinine Ratio 23.2 High 8-20 Calcium 10.1 mg/dL N 8.6-10.3 Total Protein 7.6 g/dL N 6.4-8.9 Albumin 4.4 g/dL N 3.2-5.2 Globulin 3.2 g/dL N 2-4 Albumin/Globulin Ratio 1.4 N 1-3 Total Bilirubin 0.30 mg/dL N 0.2-1.0 Alkaline Phosphatase 103 U/L N 34-104 Alt 19 U/L N 7-52 Ast 29 U/L N 13-39 Egfr Non- 72.1 N >60 Egfr 92.7 N >60 37 Laboratory test 01/07/2016 [facility] Vitamin D 28.2 ng/mL Low 30-[address] Total 25(Oh) [place] [address] [phone] Vitamin B12 225 pg/mL N 180-914 38 Magnesium 2.2 mg/dL N 1.9-2.7 CBC Auto Diff 01/07/2016 [facility] White Blood 10.2 10^3/uL N 3.5-10.[address] [place] [address] [phone] Red Blood Count 3.88 10^6/uL Low 4.0-5.4 Hemoglobin 12.2 g/dL N 12.0-16.0 Hematocrit 36 % N 35-47 Mean Corpuscular Volume 92 fL N 80-97 Mean Corpuscular Hemoglobin 31 pg N 27-31 Mean Corpuscular HGB Conc 34 g/dL N 31-36 Red Cell Distribution Width 13 % N 10.5-15 Platelet Count 349 10^3/uL N 150-450 Mean Platelet Volume 10 um3 N 7.4-10.4 Abs Neutrophils 6.1 10^3/uL N 1.5-7.7 Abs Lymphocytes 3.0 10^3/uL N 1.0-4.8 Abs Monocytes 0.8 10^3/uL N 0-0.8 Abs Eosinophils 0.2 10^3/uL N 0-0.6 Abs Basophils 0.1 10^3/uL N 0-0.2 Abs Nucleated RBC 0 10^3/uL N Granulocyte % 59.4 % N 38-83 Lymphocyte % 29.7 % N 25-47 Monocyte % 7.5 % N 1-9 Eosinophil % 2.4 % N 0-6 Basophil % 1.0 % N 0-2 Nucleated Red Blood Cells % 0 N Laboratory test 01/07/2016 [facility] TSH (Thyroid 2.32 mcIU/mL N 0.34-5.[address] Stim Horm) [place], [place] [id number] [phone] Free T4 (Free Thyroxine) 0.84 ng/dL N 0.61-1.12 CBC Auto Diff 01/23/2014 [facility] White Blood 8.3 10^3/uL N 4.8-10.[address] Count [place], [place] [id number] [phone] Red Blood Count 3.93 10^6/uL Low 4.0-5.4 Hemoglobin 12.4 g/dL N 12.0-16.0 Hematocrit 36 % N 35-47 Mean Corpuscular Volume 92 fL N 80-97 Mean Corpuscular Hemoglobin 32 pg High 27-31 Mean Corpuscular HGB Conc 34 g/dL N 31-36 Red Cell Distribution Width 13 % N 10.5-15 Platelet Count 348 10^3/uL N 150-450 Mean Platelet Volume 9 um3 N 7.4-10.4 Abs Neutrophils 4.6 10^3/uL N 1.5-7.7 Abs Lymphocytes 2.7 10^3/uL N 1.0-4.8 Abs Monocytes 0.7 10^3/uL N 0-0.8 Abs Eosinophils 0.3 10^3/uL N 0-0.6 Abs Basophils 0.1 10^3/uL N 0-0.2 Abs Nucleated RBC 0 10^3/uL N Granulocyte % 54.6 % N 38-83 Lymphocyte % 32.1 % N 25-47 Monocyte % 8.8 % N 1-9 Eosinophil % 3.4 % N 0-6 Basophil % 1.1 % N 0-2 Nucleated Red Blood Cells % 0 N Comp Metabolic Panel 01/23/2014 [facility] Sodium 137 mmol/L N 133-[address] [place] [address] [phone] Potassium 4.2 mmol/L N 3.5-5.0 Chloride 99 mmol/L Low 101-111 Co2 Carbon Dioxide 31 mmol/L N 22-32 Anion Gap 7 mmol/L N 2-11 Glucose 94 mg/dL N 70-100 Blood Urea Nitrogen 17 mg/dL N 6-24 Creatinine 0.76 mg/dL N 0.51-0.95 BUN/Creatinine Ratio 22.4 High 8-20 Calcium 9.9 mg/dL N 8.6-10.3 Total Protein 7.2 g/dL N 6.4-8.9 Albumin 4.4 g/dL N 3.2-5.2 Globulin 2.8 g/dL N 2-4 Albumin/Globulin Ratio 1.6 N 1-3 Total Bilirubin 0.30 mg/dL N 0.2-1.0 Alkaline Phosphatase 119 U/L High 34-104 Alt 17 U/L N 7-52 Ast 27 U/L N 13-39 Egfr Non- 79.3 N >60 Egfr 102.0 N >60 39 Laboratory test 01/23/2014 [facility] TSH (Thyroid 5.29 IU/mL N 0.34-5.[address] [place] [address] Horm) [phone] Cath Panel 09/15/2013 [facility] Activated 34.6 N 24.0-36.[address] [place] [address] Time [phone] CBC Auto Diff 09/15/2013 [facility] White Blood 8.2 10^3/uL N 4.8-10.[address] [place] [address] [phone] Red Blood Count 3.54 10^6/uL Low 4.0-5.4 Hemoglobin 11.5 g/dL Low 12.0-16.0 Hematocrit 32 % Low 35-47 Mean Corpuscular Volume 92 fL N 80-97 Mean Corpuscular Hemoglobin 33 pg High 27-31 Mean Corpuscular HGB Conc 35 g/dL N 31-36 Red Cell Distribution Width 13 % N 10.5-15 Platelet Count 340 10^3/uL N 150-450 Mean Platelet Volume 9 um3 N 7.4-10.4 Abs Neutrophils 5.0 10^3/uL N 1.5-7.7 Abs Lymphocytes 2.2 10^3/uL N 1.0-4.8 Abs Monocytes 0.7 10^3/uL N 0-0.8 Abs Eosinophils 0.2 10^3/uL N 0-0.6 Abs Basophils 0.1 10^3/uL N 0-0.2 Abs Nucleated RBC 0.01 10^3/uL N Granulocyte % 61.0 % N 38-83 Lymphocyte % 27.1 % N 25-47 Monocyte % 8.3 % N 1-9 Eosinophil % 2.7 % N 0-6 Basophil % 0.9 % N 0-2 Nucleated Red Blood Cells % 0.1 N Comp Metabolic Panel 09/15/2013 [facility] Sodium 136 mmol/L N 133-[address] [place] [address] [phone] Potassium 4.5 mmol/L N 3.7-5.6 Chloride 103 mmol/L N 101-111 Co2 Carbon Dioxide 28 mmol/L N 22-32 Anion Gap 5 mmol/L N 2-11 Glucose 115 mg/dL High 70-100 Blood Urea Nitrogen 10 mg/dL N 6-24 Creatinine 0.76 mg/dL N 0.51-0.95 BUN/Creatinine Ratio 13.2 N 8-20 Calcium 9.2 mg/dL N 8.6-10.3 Total Protein 7.0 g/dL N 6.4-8.9 Albumin 4.2 g/dL N 3.2-5.2 Globulin 2.8 g/dL N 2-4 Albumin/Globulin Ratio 1.5 N 1-3 Total Bilirubin 0.40 mg/dL N 0.2-1.0 Alkaline Phosphatase 132 U/L High 34-104 Alt 19 U/L N 7-52 Ast 27 U/L N 13-39 Egfr Non- 79.6 N >60 Egfr 102.4 N >60 40 Inr/Protime 09/15/2013 [facility] Inr 0.95 N 0.85-1.06 [address] [place] [address] [phone] Basic Metabolic 08/13/2013 [facility] Sodium 134 mmol/L N 133- 145 Panel [address] [place] [address] [phone] Potassium 4.5 mmol/L N 3.7-5.6 Chloride 98 mmol/L Low 101-111 Co2 Carbon Dioxide 31 mmol/L N 22-32 Anion Gap 5 mmol/L N 2-11 Glucose 90 mg/dL N 70-100 Blood Urea Nitrogen 12 mg/dL N 6-24 Creatinine 0.78 mg/dL N 0.51-0.95 BUN/Creatinine Ratio 15.4 N 8-20 Calcium 9.6 mg/dL N 8.6-10.3 Egfr Non- 77.3 N >60 Egfr 99.4 N >60 41 1 Because ethnic data is not always readily available, this report includes an eGFR for both -Americans and non- Americans. The National Kidney Disease Education Program (NKDEP) does not endorse the use of the MDRD equation for patients that are not between the ages of 18 and 70, are , have extremes of body size, muscle mass, or nutritional status, or are non- or non-. According to the National Kidney Foundation, irrespective of diagnosis, the stage of the disease is based on the level of kidney function: Stage Description GFR(mL/min/1.73 m(2)) 1 Kidney damage with normal or decreased GFR 90 2 Kidney damage with mild decrease in GFR 60-89 3 Moderate decrease in GFR 30-59 4 Severe decrease in GFR 15-29 5 Kidney failure <15 (or dialysis) 2 REFERENCE VALUE <1.0 (Negative) 3 REFERENCE VALUE <1.0 (Negative) Test Performed by: [facility] [employer] [address] [place] [address] 4 REFERENCE VALUE Not Applicable 5 RESULT: HLA-B27 antigen was not detected. ADDITIONAL INFORMATION Method: Flow Cytometry Performing Laboratory CLIA# [id number] Test Performed by: [facility] [address] [place] [address] 6 Please check labs this week for evaluation 7 Test Performed by: [facility] [address] [place], [place] [address] Toño Lambert M.D. Director of Laboratory 8 Please check labs this week for evaluation 9 ADDITIONAL INFORMATION This test was developed and its performance characteristics determined by [facility] in a manner consistent with CLIA requirements. This test has not been cleared or approved by the U.S. Food and Drug Administration. 10 ADDITIONAL INFORMATION This test was developed and its performance characteristics determined by [facility] in a manner consistent with CLIA requirements. This test has not been cleared or approved by the U.S. Food and Drug Administration. Test Performed by: [facility] - [address] [address] 11 RESULT: 01,02:01 REFERENCE VALUE Not Applicable 12 RESULT: 02:02,05:01 DQ Serologic Equivalent: 2,5 REFERENCE VALUE Not Applicable 13 While the patient lacks the gene pairs usually seen in celiac disease, there are rare exceptions in which celiac disease can occur with only one half of the gene pair (1% of all celiac) making celiac disease very unlikely. However, these genes can also be present in the normal population. ADDITIONAL INFORMATION Method: Molecular typing of HLA antigens performed using reverse SSOP and/or SSP methods, reported as serological equivalents and low to medium resolution molecular values. Performing Laboratory CLIA# [id number] Test Performed by: [place] [address] 14 Negative for cANCA and pANCA patterns by immunofluorescence. ADDITIONAL INFORMATION This test was developed and its performance characteristics determined by [facility] in a manner consistent with CLIA requirements. This test has not been cleared or approved by the U.S. Food and Drug Administration. Test Performed by: [place] [address] 15 Normal Range 180 to 914 Indeterminate Range 145 to 180 Deficient Range <145 16 Please check labs this week for evaluation 17 Please check labs this week for evaluation 18 Test Performed by: [facility] [address] 19 Because ethnic data is not always readily available, this report includes an eGFR for both -Americans and non- Americans. The National Kidney Disease Education Program (NKDEP) does not endorse the use of the MDRD equation for patients that are not between the ages of 18 and 70, are , have extremes of body size, muscle mass, or nutritional status, or are non- or non-. According to the National Kidney Foundation, irrespective of diagnosis, the stage of the disease is based on the level of kidney function: Stage Description GFR(mL/min/1.73 m(2)) 1 Kidney damage with normal or decreased GFR 90 2 Kidney damage with mild decrease in GFR 60-89 3 Moderate decrease in GFR 30-59 4 Severe decrease in GFR 15-29 5 Kidney failure <15 (or dialysis) 20 No evidence of antibodies to B. burgdorferi detected. False negative results may occur in recently infected patients (<=2 weeks) due to low or undetectable antibody levels to B. burgdorferi. If recent exposure is suspected, a second sample should be collected and tested in 2-4 weeks. Test Performed by: [facility] [address] [place] [address] 21 Normal Range 180 to 914 Indeterminate Range 145 to 180 Deficient Range <145 22 REFERENCE VALUE <=1.0 (Negative) 23 REFERENCE VALUE <20.0 (Negative) 24 Tests for antibodies to dsDNA and DANI antigens are not performed automatically unless the NILDA result is > or= 3.0 U. Studies performed at [facility] indicate that positive NILDA results <3.0 U are rarely accompanied by positive second order tests. Test Performed by: [facility] - [address] [address] 25 Therapeutic target for the treatment of diabetes mellitus patients is <7% HBA1C, and in selective patients <6.0%. Please refer to [place] [employer] diabetic care guidelines for further information. 26 SEE RESULT BELOW Name: [place] PITTS : [address]: David Mobley NP Acct: [id number] Unit: [id number] AGE: 56 [facility] Re10[facility]05[facility]17 SEX: F Status: REG REF SPEC: [id number] HO: 10/05/[address]: David Mobley NP REQ: [id number] RECD: 10/05/17 STATUS: COMP _ SOURCE: URINE SPDESC: ORDERED: Urine Culture Procedure Result Reported Site Urine Culture Final 10/06/17- 1233 ML No growth of clinically significant organisms * - Main Lab . END OF REPORT DEPARTMENT OF PATHOLOGY, [address] [place] [address] Toño Lambert M.D. Director [facility] # [id number] 27 SEE RESULT BELOW Name: [place]TS Peter : [address]: Howard Norton MD Acct: [id number] Unit: [id number] AGE: 56 Location: [place] Re03/05/17 SEX: F Status: [facility] SPEC: [id number] HO: 03/05/17-[address] [facility] [address]: Howard Norton MD REQ: [id number] RECD: 03/05/17-1158 STATUS: SOUT _ ORDERED: LEVEL 1 FINAL DIAGNOSIS Foot, left, hardware removal: Foreign body (orthopedic hardware) (Gross diagnosis). PRE-OPERATIVE DIAGNOSIS Pain due to internal orthopedic prosthetic device GROSS DESCRIPTION The specimen is received fresh labeled, Left Foot Hardware, and consists of a 7.0 x 0.5 cm gold metallic partially threaded Mendel headed screw. Per established hospital medical staff protocol, no tissue is submitted. Gross only. Signed (signature on file) Veena Mauricio MD 0958 END OF REPORT * ML=Testing performed at Main Lab DEPARTMENT OF PATHOLOGY, [address] [place] [address] Toño Lambert M.D. Director [facility] # [id number] 28 Normal Range 180 to 914 Indeterminate Range 145 to 180 Deficient Range <145 29 FASTING 10 HOUR 30 Because ethnic data is not always readily available, this report includes an eGFR for both -Americans and non- Americans. The National Kidney Disease Education Program (NKDEP) does not endorse the use of the MDRD equation for patients that are not between the ages of 18 and 70, are , have extremes of body size, muscle mass, or nutritional status, or are non- or non-. According to the National Kidney Foundation, irrespective of diagnosis, the stage of the disease is based on the level of kidney function: Stage Description GFR(mL/min/1.73 m(2)) 1 Kidney damage with normal or decreased GFR 90 2 Kidney damage with mild decrease in GFR 60-89 3 Moderate decrease in GFR 30-59 4 Severe decrease in GFR 15-29 5 Kidney failure <15 (or dialysis) 31 Desirable: <150 Borderline High: 150-199 High: 200-499 Very High: >500 32 Desirable: <200 Borderline High: 200-239 High: >239 33 Low: <40 Desirable: 40-60 High: >60 34 Desirable: <100 Near Optimal: 100-129 Borderline High: 130-159 High: 160-189 Very High: >189 35 SEE RESULT BELOW Name: [place] P[place]TS : [address]: Howard Norton MD Acct: [id number] Unit: [id number] AGE: 55 Location: [place] Re06/12/16 SEX: F Status: [facility] SPEC: [id number] HO: 06/12/16- [facility] DR: Howard Norton MD REQ: [id number] RECD: 06/12/16-1216 STATUS: SOUT _ ORDERED: Decal, LEVEL 3 FINAL DIAGNOSIS Accessory navicular left foot, excision: -- Benign bone and cartilage with degenerative change. PRE-OPERATIVE DIAGNOSIS Post tibial tendinitis GROSS DESCRIPTION The specimen is received in formalin labeled, Accessory Navicular Left Foot, and consists of two kumar-pink irregular bone fragments measuring 1.3 x 1.2 x 0.8 cm and 1.7 x 1.2 x 0.3 cm. Review Consultant sections, one cassette following decalcification. MICROSCOPIC DESCRIPTION Signed (signature on file) Veena Mauricio MD 06/28 1801 END OF REPORT * ML=Testing performed at Main Lab DEPARTMENT OF PATHOLOGY, [address] [place] [address] [place] [address] Toño Lambert M.D. Director [facility] # [id number] 36 Because ethnic data is not always readily available, this report includes an eGFR for both -Americans and non- Americans. The National Kidney Disease Education Program (NKDEP) does not endorse the use of the MDRD equation for patients that are not between the ages of 18 and 70, are , have extremes of body size, muscle mass, or nutritional status, or are non- or non-. According to the National Kidney Foundation, irrespective of diagnosis, the stage of the disease is based on the level of kidney function: Stage Description GFR(mL/min/1.73 m(2)) 1 Kidney damage with normal or decreased GFR 90 2 Kidney damage with mild decrease in GFR 60-89 3 Moderate decrease in GFR 30-59 4 Severe decrease in GFR 15-29 5 Kidney failure <15 (or dialysis) 37 Because ethnic data is not always readily available, this report includes an eGFR for both -Americans and non- Americans. The National Kidney Disease Education Program (NKDEP) does not endorse the use of the MDRD equation for patients that are not between the ages of 18 and 70, are , have extremes of body size, muscle mass, or nutritional status, or are non- or non-. According to the National Kidney Foundation, irrespective of diagnosis, the stage of the disease is based on the level of kidney function: Stage Description GFR(mL/min/1.73 m(2)) 1 Kidney damage with normal or decreased GFR 90 2 Kidney damage with mild decrease in GFR 60-89 3 Moderate decrease in GFR 30-59 4 Severe decrease in GFR 15-29 5 Kidney failure <15 (or dialysis) 38 Normal Range 180 to 914 Indeterminate Range 145 to 180 Deficient Range <145 39 Because ethnic data is not always readily available, this report includes an eGFR for both -Americans and non- Americans. The National Kidney Disease Education Program (NKDEP) does not endorse the use of the MDRD equation for patients that are not between the ages of 18 and 70, are , have extremes of body size, muscle mass, or nutritional status, or are non- or non-. According to the National Kidney Foundation, irrespective of diagnosis, the stage of the disease is based on the level of kidney function: Stage Description GFR(mL/min/1.73 m(2)) 1 Kidney damage with normal or decreased GFR 90 2 Kidney damage with mild decrease in GFR 60-89 3 Moderate decrease in GFR 30-59 4 Severe decrease in GFR 15-29 5 Kidney failure <15 (or dialysis) 40 Because ethnic data is not always readily available, this report includes an eGFR for both -Americans and non- Americans. The National Kidney Disease Education Program (NKDEP) does not endorse the use of the MDRD equation for patients that are not between the ages of 18 and 70, are , have extremes of body size, muscle mass, or nutritional status, or are non- or non-. According to the National Kidney Foundation, irrespective of diagnosis, the stage of the disease is based on the level of kidney function: Stage Description GFR(mL/min/1.73 m(2)) 1 Kidney damage with normal or decreased GFR 90 2 Kidney damage with mild decrease in GFR 60-89 3 Moderate decrease in GFR 30-59 4 Severe decrease in GFR 15-29 5 Kidney failure <15 (or dialysis) 41 Because ethnic data is not always readily available, this report includes an eGFR for both -Americans and non- Americans. The National Kidney Disease Education Program (NKDEP) does not endorse the use of the MDRD equation for patients that are not between the ages of 18 and 70, are , have extremes of body size, muscle mass, or nutritional status, or are non- or non-. According to the [employer], irrespective of diagnosis, the stage of the disease is based on the level of kidney function: Stage Description GFR(mL/min/1.73 m(2)) 1 Kidney damage with normal or decreased GFR 90 2 Kidney damage with mild decrease in GFR 60-89 3 Moderate decrease in GFR 30-59 4 Severe decrease in GFR 15-29 5 Kidney failure <15 (or dialysis) Procedures Date Code Description Status 06/13/2018 60186 EKG Tracing & Interpretation Completed 02/19/2018 [id number] Mammogram Completed 01/28/2018 46067 EKG Tracing & Interpretation Completed 12/01/2017 57310 Holter Monitor Review (24 hr)dr review & interp only Completed 11/30/2017 66880 ECHO Transthoracic, Real-Time 2D With Doppler And Color Completed Flow 11/30/2017 48828 ECHO Transthoracic, Real-Time 2D With Doppler And Color Completed Flow 11/26/2017 56933 ECG Monitor/Recording W/Visual Superimposition Scanning Completed 11/26/2017 62619 ECG Monitor/Recording W/Visual Superimposition Scanning Completed 11/06/2017 62456 EKG Tracing & Interpretation Completed 03/05/2017 06911 Removal Implant Deep Wire,Screw Nail,Hector Or Plate Completed 02/22/2017 36787 EKG Tracing & Interpretation Completed 02/07/2017 53841 Admin & Interp Of Health Risk Assessment w/ Patient Completed 01/09/2017 [id number] Mammogram Completed 12/05/2016 68608 EKG Tracing & Interpretation Completed 07/14/2016 18084 Short Leg Cast Completed 07/07/2016 70301 Short Leg Cast Completed 06/23/2016 34444 Short Leg Cast Completed 06/20/2016 96313 Short Leg Cast Completed 06/12/2016 75189 Osteotomy Calcaneus Dwyers Or Chambers Type Procedure Completed 06/12/2016 67227 Reconstruction Post Tibial Tendon W/Excision Accessory Completed Navicular 06/12/2016 48483 Reconstruction Post Tibial Tendon W/Excision Accessory Completed Navicular 06/12/2016 25401 Osteotomy Calcaneus Dwyers Or Chambers Type Procedure Completed 06/07/2016 32113 ECHO Transthoracic, Real-Time 2D With Doppler And Color Completed Flow 05/24/2016 07260 EKG Tracing & Interpretation Completed 01/27/2016 02446 EKG Tracing & Interpretation Completed 01/10/2016 [id number] Mammogram Completed 08/19/2015 61115 Stress ECHO Interpretation/Report Hospital Completed 08/19/2015 37076 Treadmill Interp/Report Only Completed 08/19/2015 63158 Stress Test Supervsn W/Out I/R Completed 06/14/2015 22211 EKG Tracing & Interpretation Completed 05/24/2015 26110 ECHO Transthoracic, Real-Time 2D With Doppler And Color Completed Flow 05/13/2015 18280 Polysomnography Sleep Staging 4+ Parameters Completed 03/11/2015 30868 EKG Tracing & Interpretation Completed 09/02/2013 49162 EKG Tracing & Interpretation Completed 08/29/2013 98455 Color Flow Doppler/Interp & Reprt Completed 08/29/2013 30648 Pulse Wave/Continuous-Interp.RPT Completed 08/29/2013 33470 Echocardiography, Transesophageal, Real Time W/Image 2D Completed W/W/O M-M 08/21/2013 71928 EKG Tracing & Interpretation Completed 07/29/2013 15591 ECHO Stress Test Incl Perf Contiuous ekg Monitoring Completed W/Phys Superv 07/29/2013 51613 ECHO Stress Test Incl Perf Contiuous ekg Monitoring Completed W/Phys Superv 07/03/2013 33895 Holter Monitor Review (24 hr)dr review & interp only Completed 06/30/2013 66671 ECHO Transthoracic, Real-Time 2D With Doppler And Color Completed Flow 06/12/2013 71262 EKG Tracing & Interpretation Completed 03/12/2012 48727 ECHO Transthoracic, Real-Time 2D With Doppler And Color Completed Flow 04/23/2003 09324 Pulse Doppler & Continuous Wave Completed 04/23/2003 32314 Echocardiogram Completed 04/23/2003 78901 Color Doppler Completed Encounters Type Date Location Provider Dx Diagnosis Office Visit 07/01/2018 Pulmonology And Anh Gustafson, J98.4 Other disorders 7:30a Sleep Services Of of lung Christopher R06.02 Shortness of breath G47.33 Obstructive sleep apnea (adult) (pediatric) Office Visit 06/13/2018 9:00a [facility] Yael SHoa I34.0 Nonrheumatic mitral Foster, N.P. (valve) insufficiency I10 Essential (primary) hypertension I42.1 Obstructive hypertrophic cardiomyopathy C50.911 Malignant neoplasm of unsp site of right female breast Z01.810 Encounter for preprocedural cardiovascular examination Office Visit 05/16/2018 2:20p [facility] David Itz, R05 Cough Medicine STAFF PHYSICAL THERAPIST Office Visit 05/13/2018 1:40p Rheumatology Manny R70.0 Elevated Services Of Christopher Pickett M.D. erythrocyte sedimentation rate C50.919 Malignant neoplasm of unsp site of unspecified female breast Office 04/09/2018 Rheumatology Manny M35.01 Sicca syndrome with Visit 9:00a Services Of Christopher Pickett keratoconjunctivitis Lizeth G56.01 Carpal tunnel syndrome, right upper limb L40.9 Psoriasis, unspecified R53.83 Other fatigue Office Visit 01/29/2018 Pulmonology And Anh I42.1 Obstructive 10:15a Sleep Services Of MD Janay hypertrophic [facility] cardiomyopathy E66.9 Obesity, unspecified Office Visit 01/28/2018 Isaac Forrest Myers I42.9 Cardiomyopathy, 9:00a Cardiology Lizeth Meyer unspecified I10 Essential (primary) hypertension I42.1 Obstructive hypertrophic cardiomyopathy I34.0 Nonrheumatic mitral (valve) insufficiency E66.9 Obesity, unspecified Office Visit 12/07/2017 Vita Galeas I42.9 Cardiomyopathy, 8:30a Cardiology Of Mary Ellen Villalba unspecified [facility] I10 Essential (primary) hypertension R00.2 Palpitations I34.0 Nonrheumatic mitral (valve) insufficiency Office Visit 11/06/2017 11:00a [facility] Forrest Myers I10 Essential (primary) Lizeth Meyer hypertension I42.9 Cardiomyopathy, unspecified I34.0 Nonrheumatic mitral (valve) insufficiency R00.2 Palpitations Office Visit 10/05/2017 11:40a [facility] Internal David Mobley NP R53.83 Other fatigue Medicine M79.643 Pain in unspecified hand R20.2 Paresthesia of skin M79.672 Pain in left foot R35.0 Frequency of micturition Office Visit 02/27/2017 Orthopedic Howard T84.84xA Pain due to 11:15a Services Of Lizeth Norton internal C.M.A. orthopedic prosth dev/grft, init Office Visit 02/22/2017 [facility] Forrest Myers I10 Essential 3:20p Cardiology Lizeth Meyer (primary) hypertension I34.0 Nonrheumatic mitral (valve) insufficiency E66.9 Obesity, unspecified Office Visit 02/07/2017 3:00p [facility] Internal David Mobley NP Z00.00 Encntr for Medicine general adult medical exam w/o abnormal findings I10 Essential (primary) hypertension R20.2 Paresthesia of skin H66.92 Otitis media, unspecified, left ear H60.8x2 Other otitis externa, left ear H91.92 Unspecified hearing loss, left ear Office Visit 01/26/2017 Bushra Lawrence T84.84xA Pain due to 2:30p Services Of Lizeth Norton internal C.M.A. orthopedic prosth dev/ollie, init Office Visit 01/18/2017 Pulmonology And Anh G47.33 Obstructive sleep 3:15p Sleep Services Of MD Janay apnea (adult) [facility] (pediatric) E66.9 Obesity, unspecified Office Visit 01/12/2017 Orthopedic Dayo Juares, M20.22 Hallux rigidus, 3:15p Services Of left foot C.M.A. Office Visit 12/22/2016 Bushra Juares, R22.42 Localized 3:15p Services Of jovani Williamson and C.M.A. lump, left lower limb Office Visit 12/05/2016 Isaac Myers I10 Essential 3:20p Cardiology Lizeth Meyer (primary) hypertension I34.0 Nonrheumatic mitral (valve) insufficiency I42.1 Obstructive hypertrophic cardiomyopathy E66.9 Obesity, unspecified Office Visit 11/17/2016 3:00p Bushra Arias76.822 Posterior tibial Services Of Lizeth Norton tendalfredo, left C.M.A. leg M20.32 Hallux varus (acquired), left foot Office Visit 05/30/2016 10:00a [facility] Internal David Mobley, Z01.818 Encounter for other Medicine STAFF PHYSICAL THERAPIST preprocedural examination M76.822 Posterior tibial tendinitis, left leg I10 Essential (primary) hypertension G47.33 Obstructive sleep apnea (adult) (pediatric) Office Visit 05/24/2016 12:00p Isaac Myers M76.822 Posterior tibial Cardiology Lizeth Meyer tendinitis, left leg I34.0 Nonrheumatic mitral (valve) insufficiency I10 Essential (primary) hypertension Office Visit 05/17/2016 3:15p Bushra Coleman.822 Posterior tibial Services Of Lizeth Cabrales, left AT [place] leg Office Visit 03/17/2016 3:10p Bushra Arias76.822 Posterior tibial Services Of Errol, M.D. tendinitis, left C.M.A. leg Office Visit 01/27/2016 3:00p Isaac Myers E66.09 Other obesity due Cardiology Lizeth Meyer to excess calories I34.0 Nonrheumatic mitral (valve) insufficiency I10 Essential (primary) hypertension Office Visit 01/25/2016 Pulmonology And Anh G47.33 Obstructive sleep 3:15p Sleep Services Of MD Janay apnea (adult) [facility] (pediatric) Office Visit 01/17/2016 [facility] Internal David Mobley, M25.562 Pain in left knee 4:00p Medicine STAFF PHYSICAL THERAPIST Office Visit 01/07/2016 [facility] Internal David Mobley, S16.1xxA Strain of muscle , 11:20a Medicine STAFF PHYSICAL THERAPIST fascia and tendon at neck level, init R53.83 Other fatigue Office Visit 12/16/2015 9:00a Orthopedic Howard M76.822 Posterior tibial Services Of Lizeth Norton tendinitis, left C.M.A. leg Office Visit 07/20/2015 3:30p Pulmonology And Anh G47.33 Obstructive sleep Sleep Services Of MD Janay apnea (adult) [facility] (pediatric) E66.09 Other obesity due to excess calories Office Visit 06/14/2015 3:20p Isaac Myers I34.0 Nonrheumatic mitral Cardiology Lizeth Meyer (valve) insufficiency G47.33 Obstructive sleep apnea (adult) (pediatric) E66.9 Obesity, unspecified R06.02 Shortness of breath R07.9 Chest pain, unspecified I10 Essential (primary) hypertension Office Visit 05/20/2015 3:30p Pulmonology And Anh G47.33 Obstructive sleep Sleep Services Of MD Janay apnea (adult) [facility] (pediatric) E66.09 Other obesity due to excess calories Office Visit 05/06/2015 3:00p [facility] Lor Morales, I1Chris Essential (primary) Of [facility] hypertension R06.02 Shortness of breath I34.0 Nonrheumatic mitral (valve) insufficiency Office Visit 04/02/2015 3:00p [facility] Lor Morales, I10 Essential (primary) Of Manager Cardiac PA hypertension I34.0 Nonrheumatic mitral (valve) insufficiency R06.02 Shortness of breath Office Visit 03/11/2015 3:00p [facility] Forrest Myers G47.9 Sleep disorder, Lizeth Meyer unspecified I34.0 Nonrheumatic mitral (valve) insufficiency I10 Essential (primary) hypertension E66.9 Obesity, unspecified Office Visit 02/02/2015 4:20p Orthopedic Howard Arias76.822 Posterior tibial Services Of Lizeth Norton tendinitis, left C.M.A. leg Office Visit 01/28/2015 3:00p Pulmonology And Anh G47.9 Sleep disorder, Sleep Services Of MD Janay unspecified Manager Cardiac E66.09 Other obesity due to excess calories Office Visit 12/31/2014 3:40p Orthopedic Howard Coleman.822 Posterior tibial Services Of Lizeth Norton tendinibryan, left C.M.A. leg Office Visit 09/24/2013 1:40p [facility] Qupaulineybeh S. 786.05 Shortness Of Cardiology Karly Dorado M.D. 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 786.50 Pain Chest Lizeth Dorado Unspec 786.05 Shortness Of Breath 424.0 Mitral Valve Disorder Office Visit 08/21/2013 [facility] Qutaybeh S. 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 401.1 Hypertension 3:20p Ariela Dorado M.D. 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 401.1 Hypertension 3:30p Cardiology Lizeth Dorado Benign 786.05 Shortness Of Breath 424.0 Mitral Valve Disorder Office Visit 06/12/2013 Isaac Dhillonpaulineminglory S. 394.1 Rheumatic Mitral 1:40p Cardiology Lizeth Dorado Insufficiency 424.2 Tricuspid Valve Disorder Spec as Nonrheumatic 785.2 Murmur Cardiac Undiagnosed 401.1 Hypertension Benign 785.1 Palpitations 786.05 Shortness Of Breath 786.50 Pain Chest Unspec 272.4 Hyperlipidemia Other Unspec Plan of Treatment Future Appointment(s):07/22/2018 7:15 am - Anh Gustafson MD at [facility]08/21/2018 11:20 am - Forrest Meyer M.D. at [facility]01/29/2019 10:45 am - Anh Gustafson MD at [facility]07/01/2018 - Anh Gustafson MDJ98.4 Other disorders of lungFollow up:3 stqmkQ47.02 Shortness of mwkuskU22.33 Obstructive sleep apnea ( adult) (pediatric)
--- OUTSIDE RECORDS SUMMARY | 2018-07-08 13:14 | XMS REPORT | Continuity of Care Document ---
:1960 External Reference #:[id number] Author Name Mary Haddad Care Team Providers Name Role Phone David Mobley NP Primary Care Physician Unavailable Payers Date Identification Numbers Payment Provider Subscriber Policy Number: [id number] [employer] Number: [id number] [address] PayID: [id number] [place] [address] Advance Directives Type Date Description Status Comment [...] and primary biliary cholangiitis Father due to NM () Father NM Mother due to CHF () Mother Congestive [...] obesity, Alcoholism, Psoriasis. 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 06/13/2018 20mg Tablets and then as Azeb Villalba.Ramiro. directed. Wrist Splint use daily to help 2units M35.01 Manny Pickett, 04/09/2018 Misc with numbness and M.D. tingling in the right hand Diagnosis g56.01 Metoprolol Succinate 1 tab by mouth 90tabs I42.9 Forrest Myers 12/07/2017 ER every day Lizeth Meyer 25mg Tablets ER 24HR Losartan Potassium 1 by mouth every 90tabs Yael S. 11/06/2017 25mg day Foster, N.P. Tablets Diphenhydramine HCL Unknown 25mg Tablets [...] times a 02/21/2017 day for 7 days 3.5-29907-1 Solution Lisinopril 1 by mouth every 90tabs David Mobley NP 08/09/2016 - 10mg Tablets day 02/07/2017 Knee Scooter M76.822 Howard Norton 06/23/2016 - M.D. 09/14/2016 Oxycodone HCL 1-2 tabs by mouth 40tabs Howard Norton 06/02/2016 - 5mg every 4-6 hours M.D. 06/17/2016 Tablets as needed Walker use as needed for 1units M76.822 Howard Norton 05/31/2016 - Misc non-weight M.D. 01/17/2017 bearing after surgery D3 [...] every Unknown - 100mcg day 10/05/2017 Tablets Goehner Oil apply as needed Unknown - Oil 09/14/2016 Tumersaid 1 po daily Unknown - Tablets 12/04/2016 Bee 4 tab po daily Unknown - Xmakhv-Eprwzenj-Nbllk prn 05/23/2016 jelly Tablets Vitamin B 12 [...] Code Status Date Vaccine Reaction Lot # [id number] Given 11/09/2017 Influenza Virus Vaccine, Quadrivalent, Split, Preservative Free 82304 Given 11/24/2016 Zoster (Zostavax) No immediate [id number] reaction.. 50338 Given 11/18/2014 Influenza Virus 3Yrs & Over Vital Signs Date Vital Result Comment 06/13/2018 8:42am Height 64.25 inches 5'4.25" Weight [...] H/L Range Note CBC Auto Diff 06/12/2018 [facility] White Blood 9.4 10^3/uL N 3.5-10.[address] [place] [address] [phone] Red Blood Count 3.53 10^6/uL Low 3.70-4.87 [...] Cells % 0.2 Comp Metabolic Panel 06/12/2018 [facility] Sodium 140 mmol/L N 135-[address] [place] [address] [phone] Potassium 4.6 mmol/L N 3.5-5.0 Chloride 106 [...] 96.0 >60 1 Ssa/SSB Abs Igg 04/09/2018 [facility] SS-A/Ro Antibody <0.2 U [address] [place] [address] [phone] SS-B/La Antibody <0.2 U 3 Hla B27 04/09/2018 [facility] Hla B27 Negative [address] [place] [address] [phone] Hla B27 Interp See Comment 5 Laboratory test 04/09/2018 [facility] Vitamin D 37.4 ng/mL N 20-[address] Total 25(Oh) [place] [address] [phone] Erythrocyte Sed Rate 58 mm/Hr High 0-30 7 C Reactive Protein 7.83 mg/L N <8.01 8 Vitamin B6 04/09/2018 [facility] Pyridoxal 5-Phosphate 7 g/L 5-[address] [place] [address] [phone] Pyridoxic Acid 4 g/L 3-30 10 Celiac Hla 04/09/2018 [facility] Hla-Dqa1 SEE BELOW [address] [place] [address] [phone] Hla-DQB1 SEE BELOW 12 Celiac Gene Pairs Present? Equivocal Celiac Gene Interpretation See Comment 13 Anca AB Ser If 04/09/2018 [facility] C-Anca Negative Negative [address] [place] [address] [phone] P-Anca Negative Negative 14 Vitamin B12 04/09/2018 [facility] Vitamin B12 > 1450 High 180- 914 [address] Folate [address] pg/[place] [address] [phone] Folic Acid (Folate) > 20.00 ng/mL >3.99 16 Laboratory 04/09/2018 [facility] Thyroperoxidase AB 0.34 IU/mL N <9 17 test finding [address] [place] [address] [phone] CMV Igg/Igm 04/09/2018 [facility] Cytomegalovirus Negative Negative [address] [place] [address] [phone] Cytomegalovirus IgM Antibody Negative Negative Comp Metabolic Panel 10/05/2017 [facility] Sodium 142 mmol/L N 135-[address] [place] [address] [phone] Potassium 4.3 mmol/L N 3.5-5.0 Chloride 106 [...] 90.8 >60 19 CBC Auto Diff 10/05/2017 [facility] White Blood 8.7 10^3/uL N 3.5-10.[address] [place] [address] [phone] Red Blood Count 3.94 10^6/uL Low 4.00-5.40 [...] Blood Cells % 0.1 Laboratory test 10/05/2017 [facility] TSH (Thyroid 2.23 mcIU/mL N 0.34-5.[address] [place]) [place] [address] [phone] Lyme Disease Serology Negative Negative 20 Vitamin B12 404 pg/mL N 180-914 21 Urinalysis Profile 10/05/2017 [facility] Urine Color Yellow [address] [place] [address] [phone] Urine Appearance Clear Urine Specific Granby 1.009 Low 1.010-1.030 Urine pH 5.0 N 5-9 Urine Urobilinogen Negative Negative Urine Ketones Negative Negative Urine Protein Negative Negative Urine Leukocytes Negative Negative Urine Blood 1+ Abnormal Negative Urine Nitrite Negative Negative Urine Bilirubin Negative Negative Urine Glucose Negative Negative Urine White Blood Cell Trace(0-5/hpf) Absent Urine Red Blood Cell Trace(0-2/hpf) Absent Urine Bacteria Absent Absent Connective Tissue 10/05/2017 [facility] Anti-Nuclear 1.0 U [address] [place] [address] [phone] Cyclic Citrullinated Peptide <15.6 U 23 Interpretation See Comment 24 Laboratory test 10/05/2017 [facility] Rheumatoid Factor < 10 IU/ mL N <[address] [place] [address] [phone] Erythrocyte Sed Rate 61 mm/Hr High 0-30 C Reactive Protein 9.01 mg/L High <8.01 Hemoglobin A1c (Glyco HGB) 5.5 % N 4.0-5.6 25 Urine Culture And 10/05/2017 [facility] Urine Culture SEE RESULT [address] [place] [address] [phone] Laboratory test 03/05/2017 [facility] Surgical SEE RESULT [address] [place] [address] [phone] Liver Function 03/03/2017 [facility] Total Protein 7.5 g/dL N 6.4-[address]9 [place] [address] [phone] Albumin 4.5 g/dL N 3.2-5.2 Globulin 3.0 g/dL N 2-4 Albumin/Globulin Ratio 1.5 N 1-3 Total Bilirubin 0.50 mg/dL N 0.2-1.0 Direct Bilirubin 0.10 mg/dL N 0.03-0.18 Indirect Bilirubin 0.4 mg/dL N 0.3-1.0 Alkaline Phosphatase 119 U/L High 34-104 Alt 21 U/L N 7-52 Ast 30 U/L N 13-39 CBC Auto Diff 02/07/2017 [facility] White Blood 10.1 10^3/uL N 3.5-10.[address] [place] [address] [phone] Red Blood Count 3.99 10^6/uL Low 4.0-5.4 [...] Blood Cells % 0 Laboratory test 02/07/2017 [facility] Vitamin B12 284 pg/mL N 180-[address] [place] [address] [phone] Laboratory test 12/30/2016 [facility] TSH (Thyroid 2.63 N 0.34 -5.[address] Stim Horm) mcIU/[place] [address] [phone] Basic Metabolic 12/30/2016 [facility] Sodium 138 mmol/L N 133- [address] [place] [address] [phone] Potassium 4.6 mmol/L N 3.5-5.0 Chloride 103 mmol/L N 101-111 Co2 Carbon Dioxide 28 mmol/L N 22-32 Anion Gap 7 mmol/L N 2-11 Glucose 101 mg/dL High 70-100 Blood Urea Nitrogen 19 mg/dL N 6-24 Creatinine 0.87 mg/dL N 0.51-0.95 BUN/Creatinine Ratio 21.8 High 8-20 Calcium 9.9 mg/dL N 8.6-10.3 Egfr Non- 67.1 >60 Egfr 86.3 >60 30 Lipid Profile 12/30/2016 [facility] Triglycerides 173 mg/dL 31 (Trig/Chol/HDL) [address] [place] [address] [phone] Cholesterol 268 mg/dL 32 HDL Cholesterol 53.7 mg/dL 33 LDL Cholesterol 180 mg/dL 34 Laboratory test 06/12/2016 [facility] Surgical SEE RESULT 35 finding [address] [place] [address] [phone] CBC Auto Diff 05/30/2016 [facility] White Blood 8.0 10^3/uL N 3.5-10 Count .8 [place] [address] [phone] Red Blood Count 3.94 10^6/uL Low 4.0-5.4 [...] % 0.1 N Comp Metabolic Panel 05/30/2016 [facility] Sodium 138 mmol/L N 133-145 [address] [place] [address] [phone] Potassium 4.8 mmol/L N 3.5-5.0 Chloride 103 [...] Egfr 92.7 N >60 36 Inr/Protime 05/30/2016 [facility] Inr 0.86 Low 0.89-1.[address] [place] [address] [phone] Comp Metabolic 01/07/2016 [facility] Sodium 137 mmol/L N 133- [address] [place] [address] [phone] Potassium 4.2 mmol/L N 3.5-5.0 Chloride 103 [...] 92.7 N >60 37 Laboratory test 01/07/2016 [facility] Vitamin D 28.2 ng/mL Low 30-[address] Total 25(Oh) [place] [address] [phone] Vitamin B12 225 pg/mL N 180-914 38 Magnesium 2.2 mg/dL N 1.9-2.7 CBC Auto Diff 01/07/2016 [facility] White Blood 10.2 10^3/uL N 3.5-10.[address] [place] [address] [phone] Red Blood Count 3.88 10^6/uL Low 4.0-5.4 [...] Cells % 0 N Laboratory test 01/07/2016 [facility] TSH (Thyroid 2.32 mcIU/mL N 0.34-5.[address] Stim [place]orm) [place] [address] [phone] Free T4 (Free Thyroxine) 0.84 ng/dL N 0.61-1.12 CBC Auto Diff 01/23/2014 [facility] White Blood 8.3 10^3/uL N 4.8-10.[address] [place] [address] [phone] Red Blood Count 3.93 10^6/uL Low 4.0-5.4 [...] % 0 N Comp Metabolic Panel 01/23/2014 [facility] Sodium 137 mmol/L N 133-[address] [place] [address] [phone] Potassium 4.2 mmol/L N 3.5-5.0 Chloride 99 [...] 102.0 N >60 39 Laboratory test 01/23/2014 [facility] TSH (Thyroid 5.29 IU/mL N 0.34-5.[address] [place] [address] Horm) [phone] Cath Panel 09/15/2013 [facility] Activated 34.6 N 24.0-36.[address] [place] [address] Time [phone] CBC Auto Diff 09/15/2013 [facility] White Blood 8.2 10^3/uL N 4.8-10.[address] [place], [place] [address] [phone] Red Blood Count 3.54 10^6/uL Low 4.0-5.4 [...] % 0.1 N Comp Metabolic Panel 09/15/2013 [facility] Sodium 136 mmol/L N 133-[address] [place] [address] [phone] Potassium 4.5 mmol/L N 3.7-5.6 Chloride 103 [...] Egfr 102.4 N >60 40 Inr/Protime 09/15/2013 [facility] Inr 0.95 N 0.85-1.[address] [place] [address] [phone] Basic Metabolic 08/13/2013 [facility] Sodium 134 mmol/L N 133- [address] [place] [address] [phone] Potassium 4.5 mmol/L N 3.7-5.6 Chloride 98 [...] REFERENCE VALUE <1.0 (Negative) Test Performed by: [facility] - [facility] [address] [place] [address] 4 REFERENCE VALUE Not Applicable 5 RESULT: HLA-B27 antigen was not detected. ADDITIONAL INFORMATION Method: Flow Cytometry Performing Laboratory CLIA# [id number] Test Performed by: [facility] [address] [place] [address] 6 Please check labs this week for evaluation 7 Test Performed by: [facility] [address] [place], [place] [address] Toño Lambert M.D. Director of Laboratory 8 Please check labs this week for evaluation 9 ADDITIONAL INFORMATION This test was developed and its performance characteristics determined by [facility] in a manner consistent with CLIA requirements. This test has not been cleared or approved by the U.S. Food and Drug Administration. 10 ADDITIONAL INFORMATION This test was developed and its performance characteristics determined by [facility] in a manner consistent with CLIA requirements. This test has not been cleared or approved by the U.S. Food and Drug Administration. Test Performed by: [facility] [employer] - [facility] [address] [place] [address] 11 RESULT: : REFERENCE VALUE Not Applicable 12 RESULT: :,05:01 DQ Serologic Equivalent: 2,5 REFERENCE VALUE Not [...] medium resolution molecular values. Performing Laboratory CLIA# [id number] Test Performed by: [place] [address] 14 Negative for cANCA and pANCA patterns by immunofluorescence. ADDITIONAL INFORMATION This test was developed and its performance characteristics determined by [facility] in a manner consistent with CLIA requirements. This test has not been cleared or approved by the U.S. Food and Drug Administration. Test Performed by: [place] [address] 15 Normal Range 180 to 914 Indeterminate Range 145 to 180 Deficient Range <145 16 Please check labs this week for evaluation 17 Please check labs this week for evaluation 18 Test Performed by: [place] [address] 19 Because ethnic data is not always [...] tested in 2-4 weeks. Test Performed by: [facility] [employer] - [facility] [address] [place] [address] 21 Normal Range 180 to 914 Indeterminate Range 145 to 180 Deficient Range <145 22 REFERENCE VALUE <=1.0 (Negative) 23 REFERENCE VALUE <20.0 (Negative) 24 Tests for antibodies to dsDNA and DANI antigens are not performed automatically unless the NILDA result is > or= 3.0 U. Studies performed at [facility] indicate that positive NILDA results <3.0 U are rarely accompanied by positive second order tests. Test Performed by: [facility] - [address] [address] 25 Therapeutic target for the treatment of diabetes mellitus patients is <7% HBA1C, and in selective patients <6.0%. Please refer to [place] [employer] diabetic care guidelines for further information. 26 SEE RESULT BELOW Name: PUSHPA PITTS : [address]: David Mobley NP Acct: [id number] Unit: [id number] AGE: 56 Location: [facility] Re10/05/17 SEX: F Status: REG REF SPEC: [id number] HO: 10/05/[address]: David Mobley NP REQ: [id number] RECD: 10/05/17 STATUS: COMP _ SOURCE: URINE SPDESC: ORDERED: Urine Culture Procedure Result Reported Site Urine Culture Final 10/06/17- 1233 ML No growth of clinically significant organisms * ML - Main Lab . END OF REPORT DEPARTMENT OF PATHOLOGY, [address] [place] [address] Toño Lambert M.D. Director [facility] # [id number] 27 SEE RESULT BELOW Name: PUSHPA PITTS : [address]: Howard Norton MD Acct: [id number] Unit: [id number] AGE: 56 Location: [place] Re03/05/17 SEX: F Status: DEP SDC SPEC: [id number] HO: 03/05/170956 [facility] DR: Howard Norton MD REQ: [id number] RECD: 03/05/178 STATUS: SOUT _ ORDERED: LEVEL 1 FINAL [...] performed at Main Lab DEPARTMENT OF PATHOLOGY, [address] [place] [address] Toño Lambert M.D. Director [facility] # [id number] 28 Normal Range 180 to 914 Indeterminate [...] [address]: Howard Norton MD Acct: [id number] Unit: [id number] AGE: 55 Location: [place] Re06/12/16 SEX: F Status: DEP [facility] SPEC: [id number] HO: 06/12/16- SUBM DR: Howard Norton MD REQ: [id number] RECD: 06/12/166 STATUS: SOUT _ ORDERED: Decal, LEVEL 3 FINAL DIAGNOSIS Accessory navicular left foot, excision: -- Benign bone and cartilage with degenerative change. PRE-OPERATIVE DIAGNOSIS Post tibial tendinitis GROSS DESCRIPTION The specimen is received in formalin labeled, Accessory Navicular Left Foot, and consists of two kumar-pink irregular bone fragments measuring 1.3 x 1.2 x 0.8 cm and 1.7 x 1.2 x 0.3 cm. Brake Press Operator sections, one cassette following decalcification. MICROSCOPIC DESCRIPTION Signed (signature on file) Veena Mauricio MD 06/28 1801 END OF REPORT * ML=Testing performed at Main Lab DEPARTMENT OF PATHOLOGY, [address] [place] [address] Toño Lambert M.D. Director [facility] # [id number] 36 Because ethnic data is not always [...] dialysis) Procedures Date Code Description Status 06/13/2018 89558 EKG Tracing & Interpretation Completed 02/19/2018 78544965 Mammogram Completed 01/28/2018 38619 EKG Tracing & Interpretation Completed 12/01/2017 01436 Holter Monitor Review (24 hr)dr tejeda & interp only Completed 11/30/2017 63986 ECHO Transthoracic, Real-Time 2D With Doppler And Color Completed Flow 11/30/2017 85945 ECHO Transthoracic, Real-Time 2D With Doppler And Color Completed Flow 11/26/2017 43331 ECG Monitor/Recording W/Visual Superimposition Scanning Completed 11/26/2017 22832 ECG Monitor/Recording W/Visual Superimposition Scanning Completed 11/06/2017 27991 EKG Tracing & Interpretation Completed 03/05/2017 36327 Removal Implant Deep Wire,Screw Nail,Hector Or Plate Completed 02/22/2017 32302 EKG Tracing & Interpretation Completed 02/07/2017 17110 Admin & Interp Of Health Risk Assessment w/ Patient Completed 01/09/2017 47018357 Mammogram Completed 12/05/2016 21833 EKG Tracing & Interpretation Completed 07/14/2016 47133 Short Leg Cast Completed 07/07/2016 34030 Short Leg Cast Completed 06/23/2016 79848 Short Leg Cast Completed 06/20/2016 60871 Short Leg Cast Completed 06/12/2016 70408 Osteotomy Calcaneus Dwyers Or Chambers Type Procedure Completed 06/12/2016 64891 Reconstruction Post Tibial Tendon W/Excision Accessory Completed Navicular 06/12/2016 98332 Reconstruction Post Tibial Tendon W/Excision Accessory Completed Navicular 06/12/2016 09247 Osteotomy Calcaneus Dwyers Or Chambers Type Procedure Completed 06/07/2016 30384 ECHO Transthoracic, Real-Time 2D With Doppler And Color Completed Flow 05/24/2016 45743 EKG Tracing & Interpretation Completed 01/27/2016 29687 EKG Tracing & Interpretation Completed 01/10/2016 40763936 Mammogram Completed 08/19/2015 30388 Stress ECHO Interpretation/Report Hospital Completed 08/19/2015 61496 Treadmill Interp/Report Only Completed 08/19/2015 61705 Stress Test Supervsn W/Out I/R Completed 06/14/2015 65900 EKG Tracing & Interpretation Completed 05/24/2015 97091 ECHO Transthoracic, Real-Time 2D With Doppler And Color Completed Flow 05/13/2015 17983 Polysomnography Sleep Staging 4+ Parameters Completed 03/11/2015 88411 EKG Tracing & Interpretation Completed 09/02/2013 82327 EKG Tracing & Interpretation Completed 08/29/2013 58777 Color Flow Doppler/Interp & Reprt Completed 08/29/2013 18025 Pulse Wave/Continuous-Interp.RPT Completed 08/29/2013 39543 Echocardiography, Transesophageal, Real Time W/Image 2D Completed W/W/O M-M 08/21/2013 86573 EKG Tracing & Interpretation Completed 07/29/2013 98730 ECHO Stress Test Incl Perf Contiuous ekg Monitoring Completed W/Phys Superv 07/29/2013 40571 ECHO Stress Test Incl Perf Contiuous ekg Monitoring Completed W/Phys Superv 07/03/2013 22911 Holter Monitor Review (24 hr)dr review & interp only Completed 06/30/2013 58758 ECHO Transthoracic, Real-Time 2D With Doppler And Color Completed Flow 06/12/2013 82159 EKG Tracing & Interpretation Completed 03/12/2012 75241 ECHO Transthoracic, Real-Time 2D With Doppler And Color Completed Flow 04/23/2003 49425 Pulse Doppler & Continuous Wave Completed 04/23/2003 79185 Echocardiogram Completed 04/23/2003 13584 Color Doppler Completed Encounters Type Date Location Provider Dx Diagnosis Office Visit 05/16/2018 [facility] David Mobley NP R05 Cough 2:20p Medicine Office Visit 05/13/2018 Rheumatology Manny Pickett, R70.0 Elevated erythrocyte 1:40p [facility] sedimentation rate C50.919 Malignant neoplasm of unsp site of unspecified female breast Office 04/09/2018 Rheumatology Manny M35.01 Sicca syndrome with Visit 9:00a [facility] Pickett keratoconjunctivitis Lizeth G56.01 Carpal tunnel syndrome, right upper limb L40.9 Psoriasis, unspecified R53.83 Other fatigue Office Visit 01/29/2018 Pulmonology And Anh I42.1 Obstructive 10:15a Sleep Services Of MD Janay hypertrophic [facility] cardiomyopathy E66.9 Obesity, unspecified Office Visit 01/28/2018 Isaac Myers I42.9 Cardiomyopathy, 9:00a Cardiology Lizeth Meyer unspecified I10 Essential (primary) hypertension I42.1 Obstructive hypertrophic cardiomyopathy I34.0 Nonrheumatic mitral (valve) insufficiency E66.9 Obesity, unspecified Office Visit 12/07/2017 Vita Galeas I42.9 Cardiomyopathy, 8:30a Cardiology Of Deejay N.Leonie unspecified Ground Operations Crew Member I10 Essential (primary) hypertension R00.2 Palpitations I34.0 Nonrheumatic mitral (valve) insufficiency Office Visit 11/06/2017 11:00a Isaac Cardiology Forrest Myers I10 Essential (primary) Lizeth Meyer hypertension I42.9 Cardiomyopathy, unspecified I34.0 Nonrheumatic mitral (valve) insufficiency R00.2 Palpitations Office Visit 10/05/2017 11:40a [facility] Internal David Mobley NP R53.83 Other fatigue Medicine M79.643 Pain in unspecified hand R20.2 Paresthesia of skin M79.672 Pain in left foot R35.0 Frequency of micturition Office Visit 02/27/2017 Orthopedic Howard T84.84xA Pain due to 11:15a Services Of Lizeth Norton internal C.M.A. orthopedic prosth dev/grft, init Office Visit 02/22/2017 [place] Forrest Myers I10 Essential 3:20p Cardiology Lizeth Meyer (primary) hypertension I34.0 Nonrheumatic mitral (valve) insufficiency E66.9 Obesity, unspecified Office Visit 02/07/2017 3:00p [facility] Internal David Mobley NP Z00.00 Encntr for Medicine general adult medical exam w/o abnormal findings I10 Essential (primary) hypertension R20.2 Paresthesia of skin H66.92 Otitis media, unspecified, left ear H60.8x2 Other otitis externa, left ear H91.92 Unspecified hearing loss, left ear Office Visit 01/26/2017 Bushra Lawrence T84.84xA Pain due to 2:30p Services Of Lizeth Norton internal C.M.A. orthopedic prosth dev/grft, init Office Visit 01/18/2017 Pulmonology And Anh G47.33 Obstructive sleep 3:15p Sleep Services Of MD Janay apnea (adult) [facility] (pediatric) E66.9 Obesity, unspecified Office Visit 01/12/2017 Orthopedic Dayo Juares, M20.22 Hallux rigidus, 3:15p Services Of left foot C.M.A. Office Visit 12/22/2016 Orthopedic Dayo Juares, R22.42 Localized 3:15p Services Of jovani Williamson and C.M.A. lump, left lower limb Office Visit 12/05/2016 [place] Forrest Myers I10 Essential 3:20p Cardiology Lizeth Meyer (primary) hypertension I34.0 Nonrheumatic mitral (valve) insufficiency I42.1 Obstructive hypertrophic cardiomyopathy E66.9 Obesity, unspecified Office Visit 11/17/2016 3:00p Bushra Arias76.822 Posterior tibial Services Of Lizeth Norton tendalfredo, left C.M.A. leg M20.32 Hallux varus (acquired), left foot Office Visit 05/30/2016 10:00a [facility] José Mobley, Z01.818 Encounter for other Medicine MARINE ENGINE MECHANIC preprocedural examination M76.822 Posterior tibial tendinitis, left leg I10 Essential (primary) hypertension G47.33 Obstructive sleep apnea (adult) (pediatric) Office Visit 05/24/2016 12:00p Isaac Coleman.822 Posterior tibial Cardiology Lizeth Meyer tendinitis, left leg I34.0 Nonrheumatic mitral (valve) insufficiency I10 Essential (primary) hypertension Office Visit 05/17/2016 3:15p Bushra Coleman.822 Posterior tibial Services Of Lizeth Cabrales, left AT Valentine leg Office Visit 03/17/2016 3:10p Bushra Coleman.[email or web address] [facility] Services Of Lizeth Norton, left C.M.A. leg Office Visit 01/27/2016 3:00p Isaac Myers E66.09 Other obesity due Cardiology Lizeth Meyer to excess calories I34.0 Nonrheumatic mitral (valve) insufficiency I10 Essential (primary) hypertension Office Visit 01/25/2016 Pulmonology And Anh G47.33 Obstructive sleep 3:15p Sleep Services Of MD Janay apnea (adult) [facility] (pediatric) Office Visit 01/17/2016 [facility] José Mobley, M25.562 Pain in left knee 4:00p Medicine MARINE ENGINE MECHANIC Office Visit 01/07/2016 [facility] José Mobley S16.1xxA Strain of muscle , 11:20a Medicine MARINE ENGINE MECHANIC fascia and tendon at neck level, init R53.83 Other fatigue Office Visit 12/16/2015 9:00a Bushra Arias76.822 [facility] Lizeth Norton, left C.M.A. leg Office Visit 07/20/2015 3:30p Pulmonology And Anh G47.33 Obstructive sleep Sleep Services Of MD Janay apnea (adult) [employer] (pediatric) E66.09 Other obesity due to excess calories Office Visit 06/14/2015 3:20p [facility] Forrest Myers I34.0 Nonrheumatic mitral Cardiology Lizeth Meyer (valve) insufficiency G47.33 Obstructive sleep apnea (adult) (pediatric) E66.9 Obesity, unspecified R06.02 Shortness of breath R07.9 Chest pain, unspecified I10 Essential (primary) hypertension Office Visit 05/20/2015 3:30p Pulmonology And Anh G47.33 Obstructive sleep Sleep Services Of MD Janay apnea (adult) [employer] Operations [employer] Member (pediatric) E66.09 Other obesity due to excess calories Office Visit 05/06/2015 3:00p [facility] Lor Morales, I10 Essential (primary) Of Ground Operations Crew Member [place] hypertension R06.02 Shortness of breath I34.0 Nonrheumatic mitral (valve) insufficiency Office Visit 04/02/2015 3:00p [facility] Lor Morales, I10 Essential (primary) Of Ground Operations Crew Member PA hypertension I34.0 Nonrheumatic mitral (valve) insufficiency R06.02 Shortness of breath Office Visit 03/11/2015 3:00p [facility] Forrest Myers G47.9 Sleep disorder, Lizeth Meyer unspecified I34.0 Nonrheumatic mitral (valve) insufficiency I10 Essential (primary) hypertension E66.9 Obesity, unspecified Office Visit 02/02/2015 4:20p Orthopedic Howard Coleman.822 [facility] Lizeth Norton, left C.M.A. leg Office Visit 01/28/2015 3:00p Pulmonology And Anh G47.9 Sleep disorder, Sleep Services Of MD Janay unspecified [employer] Operations [employer] Member E66.09 Other obesity due to excess calories Office Visit 12/31/2014 3:40p Orthopedic Howard Coleman.822 [facility] Norton, left C.M.A. 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 786.50 Pain Chest Lizeth Dorado Unspec 786.05 Shortness Of Breath 424.0 Mitral Valve Disorder Office Visit 08/21/2013 [facility] Qutaybeh S. 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 401.1 Hypertension 3:20p Ariela Dorado M.D. 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 401.1 Hypertension 3:30p Ariela Dorado M.D. Benign 786.05 Shortness Of Breath 424.0 Mitral Valve Disorder Office Visit 06/12/2013 [facility] Qutaybeh S. 394.1 Rheumatic Mitral 1:40p Ariela Dorado M.D. Insufficiency 424.2 Tricuspid Valve Disorder Spec as Nonrheumatic 785.2 Murmur Cardiac Undiagnosed 401.1 Hypertension Benign 785.1 Palpitations 786.05 Shortness Of Breath 786.50 Pain Chest Unspec 272.4 Hyperlipidemia Other Unspec Plan of Treatment Future Appointment(s):08/21/2018 11:20 am - Forrest Meyer M.D. at [facility]01/29/2019 10:45 am - Anh Gustafson MD at [facility]06/13/2018 - Azeb Avilez.P.I34.0 Nonrheumatic mitral (valve ) [id number] Essential (primary) [id number] Cardiomyopathy, unspecifiedNew Medication:Lasix 20 mg - 1 tab by mouth x1 and then as directed.Follow up:2-3 mo OV JFMRecommendations:Take Lasix x1 dose tomorrow I will check on CT results tomorrow. We will check in on sunday if breathing has improved and decide whether or not to give more Lasix or decrease metoprolol.I42.1 Obstructive hypertrophic cardiomyopathy
--- NOTE | 2018-07-08 13:40 | UC ---
Throat Pain/Nasal Alvin HPI - History of Current Complaint Stated Complaint: SORE THROAT/"ITCHY" Time Seen by Provider: 07/08/18 13:16 - Allergies/Home Medications Allergies/Adverse Reactions: Allergies Allergy/AdvReac Type Severity Reaction Status Date / Time nickel Allergy Severe Rash Verified 07/08/18 13:28 Sulfa (Sulfonamide Allergy Severe Hives- Verified 07/08/18 13:28 Antibiotics) after 4 month regimen Adhesive Tape Allergy Intermediate Blisters Verified 07/08/18 13:28 ciprofloxacin Allergy Unknown Verified 07/08/18 13:28 Reaction Details nitrofurantoin Allergy Unknown Verified 07/08/18 13:28 [From Macrobid] Reaction Details latex AdvReac Mild Rash Verified 07/08/18 13:28 Triple Antibiotic Oinment Allergy Intermediate Swelling Uncoded 07/08/18 13:28 environment Allergy Eyes Uncoded 07/08/18 13:28 Itchy/Swollen/Red/Watery PMH/Surg Hx/FS Hx/Imm Hx Previously Healthy: No - breast CA - Surgical History Surgical History: Yes Surgery Procedure, Year, and Place: Bilateral bunionectomy, 1994. bunionectomy L foot. MALIGNANT MELANOMA REMOVED 2009, left foot. DERMAFIBROMA REMOVED 2009 , right arm. scar tissue left foot 1995. 06/12/2016-OSTEOTOMY LEFT HEEL/TIBIAL TENDON REPAIR. LIVER BIOPSY. lymph node removal 02/12/18 - Family History Known Family History: Positive: None Negative: Cardiac Disease, Hypertension - Social History Alcohol Use: None Substance Use Type: None Smoking Status (MU): Never Smoked Tobacco Amount Used/How Often: 1990s, for 2 years Have You Smoked in the Last Year: No Review of Systems All Other Systems Reviewed And Are Negative: Yes Constitutional: Positive: Fatigue ENT: Positive: Sore Throat, Ear Ache, Nasal Discharge, Sinus Congestion Respiratory: Positive: Cough Is Patient Immunocompromised?: No Physical Exam Triage Information Reviewed: Yes Appearance: Well-Nourished, Ill-Appearing, Pain Distress Vital Signs Reviewed: Yes Eye Exam: Normal ENT Exam: Normal ENT: Positive: Pharyngeal erythema - wiht PND, Nasal congestion, Nasal drainage , TM bulging, Sinus tenderness Dental Exam: Normal Neck exam: Normal Respiratory Exam: Normal Respiratory: Positive: Chest non-tender, Lungs clear, Normal breath sounds Cardiovascular Exam: Normal Cardiovascular: Positive: RRR, Pulses Normal Abdominal Exam: Normal Bowel Sounds: Positive: Present Musculoskeletal Exam: Normal Neurological Exam: Normal Psychological Exam: Normal Skin Exam: Normal Throat Pain/Nasal Course/Dx - Course Course Of Treatment: hx obtained, exam performed ,meds reviewed, treated for sinusitis - Differential Dx/Diagnosis Differential Diagnosis/HQI/PQRI: Otitis Media, Pharyngitis, URI Provider Diagnosis: Sinusitis, Serous otitis media Discharge - Sign-Out/Discharge Documenting (check all that apply): Patient Departure All imaging exams completed and their final reports reviewed: No Studies - Discharge Plan Condition: Stable Disposition: HOME Prescriptions: Amoxicillin PO (*) [Amoxicillin 875 MG (*)] 875 mg PO BID #20 tab Patient Education Materials: Sinusitis (ED) Referrals: David Mobley NP [Primary Care Provider] - Additional Instructions: 1, take the medication as prescribed. 2. Salt water gargles multiple times a day 3. Follow up if not improving. - Billing Disposition and Condition Condition: STABLE Disposition: Home - Attestation Statements Provider Attestation: Per institutional requirements, I have reviewed the chart, however, I was not consulted specifically or made aware of this patient by the midlevel provider. I did not personally evaluate, interact with , or disposition this patient.
[2018-07-08 13:50] VITALS: BP 131/61
== END 2018-07-08 14:03 | disposition home or self-care (01) ==
LOC: UCCORT 10:55
DX: J32.9 Chronic sinusitis, unspecified (principal); H65.90 Unspecified nonsuppurative otitis media, unspecified ear; Z85.3 Personal history of malignant neoplasm of breast; Z85.820 Personal history of malignant melanoma of skin; Z88.2 Allergy status to sulfonamides; Z88.1 Allergy status to other antibiotic agents; Z88.3 Allergy status to other anti-infective agents
CPT/HCPCS: 99212; G0463

== ENCOUNTER 2018-10-12 14:50 | Emergency (ER) | payer OTHER ==
[2018-10-12 15:33] VITALS: BP 130/63
--- NOTE | 2018-10-12 16:39 | UC ---
Complaint Female HPI - HPI Summary HPI Summary: Pt presents with c/o low back discomfort, light headedness, nausea, generalized malaise, and is concerned that she has a UTI again. Pt states that she had her last radiation for Stage IB, triple negative breast cancer that she was treated for in [place], [place]. Pt states that she had a UTI 2 weeks ago, took augmentin and completed that prescription 1 week ago and is now "getting the same symptoms she had before" - History Of Current Complaint Chief Complaint: UCGeneralIllness Stated Complaint: URINARY Time Seen by Provider: 10/12/18 15:20 Hx Obtained From: Patient Hx Last Menstrual Period: age 54 ?: No Onset/Duration: Sudden Onset, Lasting Days, Still Present Timing: Constant - pelvic pressure and low back discomfort is constant, Intermittent - nausea and lightheaded feeling is intermittent Severity Initially: Mild Severity Currently: Mild Pain Intensity: 4 Pain Scale Used: 0-10 Numeric Character: Dull Aggravating Factor(s): Nothing Alleviating Factor(s): Nothing Associated Signs And Symptoms: Positive: Back Pain Related Hx: Similar Episode/Dx as: - UTI - Risk Factors Ectopic Risk Factor: Negative Ovarian Torsion Risk Factor: Negative - Allergies/Home Medications Allergies/Adverse Reactions: Allergies Allergy/AdvReac Type Severity Reaction Status Date / Time nickel Allergy Severe Rash Verified 10/12/18 15:17 Sulfa (Sulfonamide Allergy Severe Hives- Verified 10/12/18 15:17 Antibiotics) after 4 month regimen Adhesive Tape Allergy Intermediate Blisters Verified 10/12/18 15:17 ciprofloxacin Allergy Unknown Verified 10/12/18 15:17 Reaction Details nitrofurantoin Allergy Unknown Verified 10/12/18 15:17 [From Macrobid] Reaction Details latex AdvReac Mild Rash Verified 10/12/18 15:17 Triple Antibiotic Oinment Allergy Intermediate Swelling Uncoded 10/12/18 15:17 environment Allergy Eyes Uncoded 10/12/18 15:17 Itchy/Swollen/Red/Watery PMH/Surg Hx/FS Hx/Imm Hx Previously Healthy: No - recent treatmnet for breast cancer - Surgical History Surgical History: Yes Surgery Procedure, Year, and Place: B/L bunionectomy also prior to 1994. Bilateral bunionectomy, 1994. bunionectomy L foot. MALIGNANT MELANOMA REMOVED 2009, left foot. DERMAFIBROMA REMOVED 2009, right arm. scar tissue left foot 1995. 06/12/2016-OSTEOTOMY LEFT HEEL/TIBIAL TENDON REPAIR. LIVER BIOPSY. lymph node removal 02/12/18. resection of mastectomy, port removal - Family History Known Family History: Positive: None Negative: Cardiac Disease, Hypertension - Social History Occupation: Employed Full-time Lives: With Family Alcohol Use: None Substance Use Type: None Smoking Status (MU): Former Smoker Amount Used/How Often: 1990s, for 2 years Have You Smoked in the Last Year: No - Immunization History Vaccination Up to Date: Yes Review of Systems All Other Systems Reviewed And Are Negative: Yes Constitutional: Positive: Fatigue Skin: Positive: Negative Eyes: Positive: Negative ENT: Positive: Negative Respiratory: Positive: Negative Cardiovascular: Positive: Negative Gastrointestinal: Positive: Nausea Genitourinary: Positive: Frequency Motor: Positive: Negative Neurovascular: Positive: Negative Musculoskeletal: Positive: Negative Neurological: Positive: Negative Psychological: Positive: Negative Is Patient Immunocompromised?: No Physical Exam Triage Information Reviewed: Yes Appearance: Well-Appearing Vital Signs: Initial Vital Signs Temp 97.8 F 10/12/18 15:20 Pulse 67 10/12/18 15:20 Resp 16 10/12/18 15:20 BP 130/63 10/12/18 15:20 Pulse Ox 98 10/12/18 15:20 Vital Signs Reviewed: Yes Eye Exam: Normal ENT Exam: Normal Dental Exam: Normal Neck exam: Normal Respiratory Exam: Normal Cardiovascular: Positive: Murmur:Sys:Grade _?_/ Abdominal Exam: Normal Abdomen Description: Positive: Nontender Musculoskeletal Exam: Normal Neurological Exam: Normal Psychological Exam: Normal Skin Exam: Normal Complaint Female Dx - Course Course Of Treatment: During PE, pt stated she felt light headed and nauseous. She denied CP or palpitations. Pt states she has been having these "episodes" since she began getting radiation. Pt discussed a desire to seek continued oncology care closer to home. Pt was given a recommendation to Dr. Serrano. Pt was reminded to use the zofran she had at home from her breast cancer treatment. - Differential Dx/Diagnosis Differential Diagnosis/HQI/PQRI: Urinary Tract Infection Provider Diagnosis: Urinary frequency, Nausea Discharge ED - Sign-Out/Discharge Documenting (check all that apply): Patient Departure All imaging exams completed and their final reports reviewed: No Studies - Discharge Plan Condition: Stable Disposition: HOME Prescriptions: Cephalexin CAP* [Keflex 500 CAP*] 500 mg PO Q8H #21 cap Fluconazole 150 MG TAB* [Diflucan 150 MG TAB*] 150 mg PO ONCE #2 tablet Patient Education Materials: Acute Nausea and Vomiting (ED), Pelvic Pain in Women (ED), Lightheadedness (ED), Urinary Urgency and Frequency (DC) Referrals: Shannan Serrano MD [Medical Doctor] - David Mobley NP [Primary Care Provider] - As Soon As Possible Additional Instructions: Please follow up with your PCP as soon as possible. Also, please find a recommendation for an Oncologist follow up. If your symptoms do not improve or they worsen, please go directly to the closest emergency room as soon as possible. - Billing Disposition and Condition Condition: STABLE Disposition: Home
== END 2018-10-12 16:23 | disposition home or self-care (01) ==
LOC: UCCORT 14:50
DX: R35.0 Frequency of micturition (principal); R11.0 Nausea; Z88.2 Allergy status to sulfonamides; Z88.1 Allergy status to other antibiotic agents; Z85.3 Personal history of malignant neoplasm of breast; Z87.891 Personal history of nicotine dependence
CPT/HCPCS: 81003; 87086; 99212; G0463

== ENCOUNTER 2019-01-29 12:05 | Emergency (ER) | payer OTHER ==
[2019-01-29 12:36] VITALS: BP 153/86
--- NOTE | 2019-01-29 14:17 | UC ---
Complaint Female HPI - HPI Summary HPI Summary: PATIENT UNDERWENT CYSTOSCOPY WITH URETHRAL STRETCHING ON 01/21/19 WITH [facility]. 2 DAYS AGO SHE DEVELOPED DYSURIA, URINARY FREQUENCY AND URGENCY. NO FEVER OR BACK PAIN OR NAUSEA. - History Of Current Complaint Chief Complaint: UCGU Stated Complaint: FREQUENT URINATION Time Seen by Provider: 01/29/19 13:48 Hx Obtained From: Patient Hx Last Menstrual Period: age 54 Onset/Duration: Gradual Onset, Lasting Days, Still Present Severity Initially: Moderate Severity Currently: Moderate Pain Intensity: 4 Pain Scale Used: 0-10 Numeric Character: Burning Aggravating Factor(s): Urination Associated Signs And Symptoms: Negative: Fever, Back Pain, Nausea - Allergies/Home Medications Allergies/Adverse Reactions: Allergies Allergy/AdvReac Type Severity Reaction Status Date / Time nickel Allergy Severe Rash Verified 01/29/19 12:21 Sulfa (Sulfonamide Allergy Severe Hives- Verified 01/29/19 12:21 Antibiotics) after 4 month regimen Adhesive Tape Allergy Intermediate Blisters Verified 01/29/19 12:21 ciprofloxacin Allergy Unknown Verified 01/29/19 12:21 Reaction Details nitrofurantoin Allergy Unknown Verified 01/29/19 12:21 [From Macrobid] Reaction Details latex AdvReac Mild Rash Verified 01/29/19 12:21 Triple Antibiotic Oinment Allergy Intermediate Swelling Uncoded 01/29/19 12:21 environment Allergy Eyes Uncoded 01/29/19 12:21 Itchy/Swollen/Red/Watery PMH/Surg Hx/FS Hx/Imm Hx Cancer History: Breast Cancer Other Cancer History: MELANOMA - Surgical History Surgical History: Yes Surgery Procedure, Year, and Place: B/L bunionectomy also prior to 1994. Bilateral bunionectomy, 1994. bunionectomy L foot. MALIGNANT MELANOMA REMOVED 2009, left foot. DERMAFIBROMA REMOVED 2009, right arm. scar tissue left foot 1995. 06/12/2016-OSTEOTOMY LEFT HEEL/TIBIAL TENDON REPAIR. LIVER BIOPSY. lymph node removal 02/12/18. resection of mastectomy RIGHT BREAST X2 port removal - Family History Known Family History: Positive: None Negative: Cardiac Disease, Hypertension - Social History Alcohol Use: None Substance Use Type: None Smoking Status (MU): Former Smoker Amount Used/How Often: 1990s, for 2 years Have You Smoked in the Last Year: No - Immunization History Vaccination Up to Date: Yes Review of Systems All Other Systems Reviewed And Are Negative: Yes Constitutional: Positive: Negative Respiratory: Positive: Negative Cardiovascular: Positive: Negative Gastrointestinal: Positive: Negative Genitourinary: Positive: Dysuria, Frequency, Urgency Physical Exam Triage Information Reviewed: Yes Appearance: Well-Appearing, No Pain Distress, Well-Nourished Vital Signs: Initial Vital Signs Temp 98.2 F 01/29/19 12:26 Pulse 69 01/29/19 12:26 Resp 16 01/29/19 12:26 BP 153/86 01/29/19 12:26 Pulse Ox 98 01/29/19 12:26 Laboratory Tests 01/29/19 12:51 POC Urine Color Yellow POC Urine Clarity Clear POC Urine pH 7.0 POC Ur Specif Lannon 1.015 POC Urine Protein Negative POC Ur Glucose (UA) Negative POC Urine Ketones Negative POC Urine Blood Trace-lysed POC Urine Nitrite Negative POC Urine Bilirubin Negative POC Urine Urobilinogen 0.2 POC U Leukocyte Esteras Trace Vital Signs Reviewed: Yes Eyes: Positive: Conjunctiva Clear ENT: Positive: Hearing grossly normal Neck: Positive: Supple Respiratory: Positive: No respiratory distress, No accessory muscle use Cardiovascular: Positive: Pulses Normal Abdomen Description: Positive: Soft Musculoskeletal: Positive: No Edema Neurological: Positive: Alert Psychological: Positive: Age Appropriate Behavior Skin: Negative: Rashes Complaint Female Dx - Course Course Of Treatment: PATIENT WITH RECENT URETHRAL INSTRUMENTATION COMES IN WITH 2 DAYS OF DYSURIA, FREQUENCY AND URGENCY. URINE DIP WITH ONLY TRACE LEUKS. SHE PREFERS TO WAIT FOR CULTURE RESULTS BEFORE TAKING ANY ANTIBIOTICS WHICH I THINK IS REASONABLE. WILL GIVE PYRIDIUM TO HELP WITH DISCOMFORT. HAVE ENCOURAGED HYDRATION. I'VE ALSO ENCOURAGED HER TO CALL HER UROLOGIST FOR FURTHER EVALUATION. - Differential Dx/Diagnosis Provider Diagnosis: Dysuria Discharge ED - Sign-Out/Discharge Documenting (check all that apply): Patient Departure All imaging exams completed and their final reports reviewed: No Studies - Discharge Plan Condition: Stable Disposition: HOME Prescriptions: Phenazopyridine TAB* [Pyridium TAB*] 200 mg PO TID #6 tab Patient Education Materials: Dysuria (ED) Referrals: David Mobley, AIR BREAKER OPERATOR [Primary Care Provider] - If Needed Additional Instructions: URINE DIP TODAY WITH ONLY TRACE LEUKS. THIS IS LOW SUSPICION FOR UTI. SPECIMEN HAS BEEN SENT FOR CULTURE AND WE WILL CALL YOU IF YOU NEED TREATMENT. STAY WELL-HYDRATED. PYRIDIUM NEEDED FOR DISCOMFORT. I RECOMMEND YOU ESTABLISH WITH A NEW UROLOGIST ANN. GO TO THE ER WITHOUT FAIL IF YOU DEVELOP WORSENING PAIN, FEVER, INABILITY TO URINATE OR ANY OTHER CONCERNING SYMPTOMS. - Billing Disposition and Condition Condition: STABLE Disposition: Home
--- NOTE | 2019-01-31 08:21 | UC ---
- Progress Note Progress Note: URINE CULTURE POSITIVE FOR 10-25,000 CFU/ML GROUP B STREP. CALLED PATIENT. NAME AND DATE OF VERIFIED. SHE REPORTS SHE IS STILL EXPERIENCING URINARY SYMPTOMS INCLUDING DYSURIA, FREQUENCY AND URGENCY. GIVEN THIS WILL GO AHEAD AND TREAT WITH AN ANTIBIOTIC. KEFLEX SENT IN TO [facility] IN [place]. SHE IS ALSO REQUESTING ANOTHER COURSE OF PYRIDIUM. ADVISED IT IS NOT RECOMMENDED FOR LONG COURSES. WILL GIVE ANOTHER 2 DAYS. ADVISED TO STAY WELL- HYDRATED AND TO FOLLOW-UP WITH HER UROLOGIST ANN. SHE STATES SHE IS LOOKING INTO A REFERRAL TO A NEW UROLOGIST IN [place]. Course/Dx - Diagnoses Provider Diagnoses: Dysuria Discharge ED - Sign-Out/Discharge Documenting (check all that apply): Post-Discharge Follow Up All imaging exams completed and their final reports reviewed: No Studies - Discharge Plan Condition: Stable Disposition: HOME Prescriptions: Cephalexin CAP* [Keflex 500 CAP*] 500 mg PO BID #10 cap Phenazopyridine TAB* [Pyridium TAB*] 200 mg PO TID #6 tab Phenazopyridine TAB* [Pyridium TAB*] 200 mg PO TID #6 tab Patient Education Materials: Dysuria (ED) Referrals: David Mobley, [employer] CONSULTANT [Primary Care Provider] - If Needed Additional Instructions: URINE DIP TODAY WITH ONLY TRACE LEUKS. THIS IS LOW SUSPICION FOR UTI. SPECIMEN HAS BEEN SENT FOR CULTURE AND WE WILL CALL YOU IF YOU NEED TREATMENT. STAY WELL-HYDRATED. PYRIDIUM NEEDED FOR DISCOMFORT. I RECOMMEND YOU ESTABLISH WITH A NEW UROLOGIST ANN. GO TO THE ER WITHOUT FAIL IF YOU DEVELOP WORSENING PAIN, FEVER, INABILITY TO URINATE OR ANY OTHER CONCERNING SYMPTOMS. - Billing Disposition and Condition Condition: STABLE Disposition: Home
== END 2019-01-29 14:15 | disposition home or self-care (01) ==
LOC: UCEAST 12:05
DX: R30.0 Dysuria (principal); R39.15 Urgency of urination; R35.0 Frequency of micturition; Z85.3 Personal history of malignant neoplasm of breast; Z85.820 Personal history of malignant melanoma of skin; Z87.891 Personal history of nicotine dependence; Z88.2 Allergy status to sulfonamides; Z88.1 Allergy status to other antibiotic agents; Z91.09 Other allergy status, other than to drugs and biological substances; Z91.040 Latex allergy status
CPT/HCPCS: 81003; 87077; 87086; 99212; G0463

== ENCOUNTER 2019-05-27 14:42 | Emergency (ER) | payer OTHER ==
--- OUTSIDE RECORDS SUMMARY | 2019-05-27 15:02 | XMS REPORT | Continuity of Care Document ---
:1960 External Reference #:[id number] Author Name Diamond Oneil MD (transmitted by agent of provider May) Address [address], [place] [address] Care Team Providers Name Role Phone Cindi Quinteros FNP - Family Care Team Information Turkey Picker Julian Sanders MD - Cardiovascular Care Team Information Turkey Picker Disease David Mobley NP - Internal Medicine Care Team Information Turkey Picker Problems Active Problems Provider Date Rheumatic mitral [...] of breast David Mobley NP Onset: 03/12/2018 Benign paroxysmal positional vertigo Donald Andrea M.D. Onset: 02/25/2019 Visual disturbance Donald Andrea M.D. Onset: 02/25/2019 Neck pain Donald Andrea M.D. Onset: 02/25/2019 Skin sensation disturbance Donald Andrea M.D. Onset: 02/25/2019 Left side sciatica Donald Andrea M.D. Onset: 02/25/2019 Malaise and fatigue Donald Andrea M.D. Onset: 02/25/2019 Myalgia, other site Donald Andrea M.D. Onset: 02/25/2019 Palpitations Donald Andrea M.D. Onset: 04/22/2019 Social History Type Date Description Comments Sex Unknown Tobacco Use Start: Unknown End: Former Cigarette Smoker Unknown Smoking Status Reviewed: 05/01/19 Former Cigarette Smoker ETOH Use Denies alcohol use Tobacco Use Start: Unknown End: Patient is a former 2 years, < 1/2 PPD Unknown smoker quit in 1998 Recreational Drug Use Denies Drug Use Exercise Type/Frequency Exercises rarely Exercise Type/Frequency walking Allergies, Adverse Reactions, Alerts Active Allergies Reaction Severity Comments Date Triple Antibiotic lip swelling, nose 06/12/2013 Ointment swelling at application site Sulfa Antibiotics hives 06/12/2013 Macrobid 09/24/2013 Cipro 03/11/2015 Bandages 04/02/2015 Cardizem CD SOB,nausea, chest Severe 05/06/2015 pain Nickel blistering,itching 04/18/2017 Psyllium hives 12/07/2017 Eggs or Egg-derived 04/09/2018 Products Titanium Moderate 03/27/2019 Inactive Allergies Amoxicillin Hives 01/28/2018 Medications Active Medications SIG Qnty Indications Ordering Date Provider Spironolactone 1/2 tablet by 30tabs Forrest Myers 05/05/2019 25mg mouth every Lizeth Meyer Tablets other day Torsemide 1 by mouth prn 30tabs Forrest Myers 04/30/2019 20mg Tablets Lizeth Meyer Metoprolol Succinate 1/2 by mouth 45tabs Forrest Myers 03/20/2019 ER every day Lizeth Meyer 25mg Tablets ER 24HR Proair HFA Inhale One puff 8.5units J45.909 Anh Gustafson, 07/22/2018 108(90Base) By Mouth Every 6 MD mcg/Act Aerosol Hours as Needed Wrist Splint 10/18/17 does not 2units M35.01 Manny Pickett, 04/09/2018 Misc use. use daily M.DHoa to help with numbness and tingling in the right hand Diagnosis g56.01 Losartan Potassium take 1 tablet by 90tabs Yael Villalba, 11/06/2017 25mg mouth every day N.P. Tablets (on hold) Fluticasone Propionate as needed Unknown Nasal [place] 24- Hour 50mcg/Act Suspension B Complex-B12 Unknown Tablets Levothyroxine Sodium Take 1 Tablet By 90tabs David Mobley NP Mouth Every Day 50mcg Tablets Vitamin D3 High 2 by mouth every Unknown Potency day 1000Unit Capsules Cpap nightly Unknown Device Ursodiol 1 cap po at 180caps Unknown 300mg Capsules night History Medications Lasix 1 tab by mouth, 90tabs Forrest Myers 05/01/2019 - 20mg Tablets after checking Lizeth Meyer 05/01/2019 weight Aldactone 1 by mouth every 60tabs Forrest Myers 05/01/2019 - 25mg day Lizeth Meyer 05/04/2019 Tablets Torsemide 1 by mouth once 1tabs Forrest Myers 03/26/2019 - 10mg today Lizeth Meyer 03/26/2019 Tablets Amoxicillin/Clavula take one tablet 14tabs David Mobley NP 12/23/2018 - desi Potassium q12 hours for 7 12/30/2018 days 875-125mg Tablets Omeprazole One tablet daily 30tabs R10.11 David Mobley NP 12/20/2018 - 20mg 03/09/[address] Waldron CPT Code Status Date Vaccine Reaction Lot # [id number] Given 11/09/2017 Influenza Virus Vaccine, Quadrivalent, Split, Preservative Free 54834 Given 11/24/2016 Zoster (Zostavax) No immediate [id number] reaction.. 74006 Given 11/18/2014 Influenza Virus 3Yrs & Over Vital Signs Date Vital Result Comment 05/01/2019 2:49pm Height 64 inches 5'4" Weight 218.00 lb with shoes Heart Rate 56 /min BP Systolic Sitting 140 mmHg Lue lg cuff BP Diastolic Sitting 86 mmHg Lue lg cuff BP Systolic Standing 148 mmHg Lue lg cuff BP Diastolic Standing 82 mmHg Lue lg cuff Body Temperature 96.6 F temporal O2 % BldC Oximetry 95 % at room air BMI (Body Mass Index) 37.4 kg/m2 04/22/2019 12:23pm Height 64 inches 5'4" Weight 216.00 lb Heart Rate 79 /min BP Systolic 134 mmHg BP Diastolic 88 mmHg BMI (Body Mass Index) 37.1 kg/m2 Results Test Acquired Date Facility Test Result H/L Range Note Basic Metabolic 03/27/2019 [facility] Sodium 138 mmol/L Normal 135-145 Panel [address] [place] [address] [phone] Potassium 4.6 mmol/L Normal 3.5-5.0 Chloride 102 mmol/L Normal 101-111 Co2 Carbon Dioxide 30 mmol/L Normal 22-32 Anion Gap 6 mmol/L Normal 2-11 Glucose 76 mg/dL Normal 70-100 Blood Urea Nitrogen 18 mg/dL Normal 6-24 Creatinine 0.85 mg/dL Normal 0.51-0.95 BUN/Creatinine Ratio 21.2 High 8-20 Calcium 9.7 mg/dL Normal 8.6-10.3 Egfr Non- 68.5 >60 Egfr 82.8 >60 1 Laboratory test 03/27/2019 [facility] C Reactive 7.83 mg/L Normal <8.01 finding [address] [facility] [place] [address] [phone] Erythrocyte Sed Rate 38 mm/Hr High 0-29 Iron & Iron Binding 03/27/2019 [facility] Iron 104 g/dL Normal 50-212 [address] [place] [address] [phone] Unsaturated Iron Binding < 443 g/dL Total Iron Binding Capacity 458 g/dL High 250-450 Transferrin 327 mg/dL Normal 203-362 % Iron Saturation 23 % Normal 15-55 Laboratory test 03/27/2019 [facility] Magnesium 2.2 mg/dL Normal 1.9-2.7 finding [address] [place] [address] [phone] B-Type Natriuretic Peptide BNP 19 pg/mL <=100 Ammonia 44 mcmol/L Normal 16-53 Basic Metabolic 03/20/2019 [facility] Sodium 140 mmol/L Normal 135-145 Panel [address] [place] [address] [phone] Potassium 4.4 mmol/L Normal 3.5-5.0 Chloride 104 mmol/L Normal 101-111 Co2 Carbon Dioxide 30 mmol/L Normal 22-32 Anion Gap 6 mmol/L Normal 2-11 Glucose 81 mg/dL Normal 70-100 Blood Urea Nitrogen 16 mg/dL Normal 6-24 Creatinine 1.15 mg/dL High 0.51-0.95 BUN/Creatinine Ratio 13.9 Normal 8-20 Calcium 9.6 mg/dL Normal 8.6-10.3 Egfr Non- 48.3 >60 Egfr 58.4 >60 2 CBC Auto 03/13/2019 [facility] White Blood 6.7 10^3/uL Normal 3.5-10.[address] [place] [address] [phone] Red Blood Count 3.77 10^6/uL Normal 3.70-4.87 Hemoglobin 12.0 g/dL Normal 12.0-16.0 Hematocrit 35 % Normal 35-47 Mean Corpuscular Volume 93 fL Normal 80-97 Mean Corpuscular Hemoglobin 32 pg High 27-31 Mean Corpuscular HGB Conc 34 g/dL Normal 31-36 Red Cell Distribution Width 13 % Normal 10-15 Platelet Count 378 10^3/uL Normal 150-450 Mean Platelet Volume 8.7 fL Normal 7.4-10.4 Abs Neutrophils 3.9 10^3/uL Normal 1.5-7.7 Abs Lymphocytes 2.0 10^3/uL Normal 1.0-4.8 Abs Monocytes 0.6 10^3/uL Normal 0-0.8 Abs Eosinophils 0.1 10^3/uL Normal 0-0.6 Abs Basophils 0.1 10^3/uL Normal 0-0.2 Abs Nucleated RBC 0.0 10^3/uL Granulocyte % 57.7 % Lymphocyte % 29.6 % Monocyte % 9.6 % Eosinophil % 2.2 % Basophil % 0.9 % Nucleated Red Blood Cells % 0.1 Laboratory 03/13/2019 [facility] TSH (Thyroid 3.02 Normal 0.34 -5.60 test finding [address] Stim Horm) mcIU/[place] [address] [phone] Vitamin B12 334 pg/mL Normal 180-914 3 Ferritin 88.1 ng/mL Normal 11-307 Comp Metabolic 03/13/2019 [facility] Sodium 140 mmol/L Normal 135-[address] [place], [place] [id number] [phone] Potassium 4.5 mmol/L Normal 3.5-5.0 Chloride 103 mmol/L Normal 101-111 Co2 Carbon Dioxide 30 mmol/L Normal 22-32 Anion Gap 7 mmol/L Normal 2-11 Glucose 103 mg/dL High 70-100 Blood Urea Nitrogen 17 mg/dL Normal 6-24 Creatinine 0.80 mg/dL Normal 0.51-0.95 BUN/Creatinine Ratio 21.3 High 8-20 Calcium 9.8 mg/dL Normal 8.6-10.3 Total Protein 7.1 g/dL Normal 6.4-8.9 Albumin 4.3 g/dL Normal 3.2-5.2 Globulin 2.8 g/dL Normal 2-4 Albumin/Globulin Ratio 1.5 Normal 1-3 Total Bilirubin 0.30 mg/dL Normal 0.2-1.0 Alkaline Phosphatase 110 U/L High 34-104 Alt 19 U/L Normal 7-52 Ast 23 U/L Normal 13-39 Egfr Non- 73.4 >60 Egfr 88.8 >60 4 Poc Urinalysis 01/29/2019 [facility] Poc Glucose, NEGATIVE Negative [address] [place] [address] [phone] Poc Bilirubin, Urine NEGATIVE Negative Poc Ketone, Urine NEGATIVE Negative Poc Specific [place], Urine 1.015 Normal 1.010-1.030 Poc Blood, Urine TRACE-LYSED Negative 5 Poc pH, Urine 7.0 Normal 5-9 Poc Protein, Urine NEGATIVE Negative Poc Urobilinogen, Urine 0.2 Negative Poc Nitrite, Urine NEGATIVE Negative Poc Leukocytes, Urine TRACE Negative Poc Color, Urine YELLOW Poc Clarity, Urine CLEAR Urine Culture And 01/29/2019 [facility] Urine Culture SEE RESULT 6, [address] [place] [address] [phone] Mumps Igg 01/02/2019 [facility] Mumps Virus Positive [address] [place] [address] [phone] Mumps IgG Antibody Index 3.4 9 Rubeola Measles 01/02/2019 [facility] Rubeola (Measles) Positive 10 Igg AB [address] [place] [address] [phone] Rubeola IgG Antibody Index 6.3 11 Laboratory test 01/02/2019 [facility] Rubella Immune Immune finding [address] [place] [address] [phone] CBC Auto Diff 12/20/2018 [facility] White Blood 7.6 Normal 3.5 -10.[address] Count 10^3/[place] [address] [phone] Red Blood Count 4.00 10^6/uL Normal 3.70-4.87 Hemoglobin 12.7 g/dL Normal 12.0-16.0 Hematocrit 37 % Normal 35-47 Mean Corpuscular Volume 94 fL Normal 80-97 Mean Corpuscular Hemoglobin 32 pg High 27-31 Mean Corpuscular HGB Conc 34 g/dL Normal 31-36 Red Cell Distribution Width 14 % Normal 10-15 Platelet Count 417 10^3/uL Normal 150-450 Mean Platelet Volume 8.4 fL Normal 7.4-10.4 Abs Neutrophils 4.6 10^3/uL Normal 1.5-7.7 Abs Lymphocytes 2.1 10^3/uL Normal 1.0-4.8 Abs Monocytes 0.6 10^3/uL Normal 0-0.8 Abs Eosinophils 0.2 10^3/uL Normal 0-0.6 Abs Basophils 0.1 10^3/uL Normal 0-0.2 Abs Nucleated RBC 0.0 10^3/uL Granulocyte % 61.2 % Lymphocyte % 27.3 % Monocyte % 8.5 % Eosinophil % 2.3 % Basophil % 0.7 % Nucleated Red Blood Cells % 0.0 Comp Metabolic 12/20/2018 [facility] Sodium 139 mmol/L Normal 135-[address] [place] [address] [phone] Potassium 5.0 mmol/L Normal 3.5-5.0 Chloride 103 mmol/L Normal 101-111 Co2 Carbon Dioxide 29 mmol/L Normal 22-32 Anion Gap 7 mmol/L Normal 2-11 Glucose 89 mg/dL Normal 70-100 Blood Urea Nitrogen 18 mg/dL Normal 6-24 Creatinine 0.99 mg/dL High 0.51-0.95 BUN/Creatinine Ratio 18.2 Normal 8-20 Calcium 10.4 mg/dL High 8.6-10.3 Total Protein 7.8 g/dL Normal 6.4-8.9 Albumin 4.8 g/dL Normal 3.2-5.2 Globulin 3.0 g/dL Normal 2-4 Albumin/Globulin Ratio 1.6 Normal 1-3 Total Bilirubin 0.40 mg/dL Normal 0.2-1.0 Alkaline Phosphatase 112 U/L High 34-104 Alt 26 U/L Normal 7-52 Ast 28 U/L Normal 13-39 Egfr Non- 57.4 >60 Egfr 69.5 >60 12 Laboratory test 12/20/2018 [facility] Lipase 37 U/L Normal 11.0-82.[address] [place] [address] [phone] Urinalysis 12/20/2018 [facility] Urine Color Yellow Profile [address] [place] [address] [phone] Urine Appearance Clear Urine Specific [place] 1.013 Normal 1.010-1.030 Urine pH 5.0 Normal 5-9 Urine Urobilinogen Negative Negative Urine Ketones Negative Negative Urine Protein Negative Negative Urine Leukocytes 1+ Abnormal Negative Urine Blood 1+ Abnormal Negative Urine Nitrite Negative Negative Urine Bilirubin Negative Negative Urine Glucose Negative Negative Urine White Blood Cell Trace(0-5/hpf) Absent Urine Red Blood Cell 1+(3-5/hpf) Abnormal Absent Urine Bacteria Absent Absent Urine Squamous Epithelial Cell Present Abnormal Absent Urine Culture And 12/20/2018 [facility] Urine Culture SEE RESULT [address] [place] [address] [phone] Cytology 12/09/2018 [facility] Cytology SEE RESULT [address] [place] [address] [phone] PDFReport [id number] <SEE NOTE> Laboratory test 12/09/2018 [facility] Vitamin B12 361 pg/mL Normal 180-[address] [place] [address] [phone] Hemoglobin A1c (Glyco HGB) 5.4 % Normal 4.0-5.6 16 Glucose 100 mg/dL Normal 70-100 17 Hepatitis C Antibody 12/09/2018 [facility] HCV Index 0.01 s/c [address] [place] [address] [phone] Hepatitis C Antibody Negative Negative 1 Because ethnic data is not always [...] 5 Kidney failure <15 (or dialysis) 2 Because ethnic data is not always readily [...] 15-29 5 Kidney failure <15 (or dialysis) 3 Normal Range 180 to 914 Indeterminate Range 145 to 180 Deficient Range <145 4 Because ethnic data is not always readily [...] 15-29 5 Kidney failure <15 (or dialysis) 5 Ore Feeder: [id number] 7 SEE RESULT BELOW Name: [place] : [address]: Sita Mendoza MD Acct: [id number] Unit: [id number] AGE: 58 Location: [facility] Re01/29/19 SEX: F Status: DEP ER SPEC: [id number] HO: 01/29/19-1257 [facility] DR: Sita Mendoza MD REQ: [id number] RECD: 01/29/19 STATUS: KEVIN WESTON DR: Isaac [facility] David Mobley BEACH ATTENDANT _ SOURCE: URINE SPDESC: ORDERED: Urine Culture COMMENTS: [id number] Procedure Result Reported Site Urine Culture Final 01/30/19- 1507 ML Organism 1 STREP GROUP B [place] Count 10-25,000 (Moderate) CFU/ML Susceptibility testing of penicillins and other B-lactams approved by FDA for treatment of Streptococcus pyogenes (Group A Strep) and Streptococcus agalactiae (Group B Strep) is not necessary for clinical purposes and need not be done routinely, since as with vancomycin, resistant strains have not been recognized. (CLSI N536-A90;p.66) Positive isolates will be saved for one week. Please call the Microbiology Laboratory if further susceptibility testing is needed. * ML - Main Lab . END OF REPORT DEPARTMENT OF PATHOLOGY, [address] [place] [address] Toño Lambert M.D. Director [place] # [id number] 8 Results suggest response to immunization or prior exposure to the virus. REFERENCE VALUE Vaccinated: Positive (>=1.1 AI) Unvaccinated: Negative (<=0.8 AI) 9 Test Performed by: [facility] [address] [place] [address] Emergency Room Nurse: Alex Olsen M.D. Ph.D.; CLIA# [id number] 10 Results suggest response to immunization or prior exposure to the virus. REFERENCE VALUE Vaccinated: Positive (>=1.1 AI) Unvaccinated: Negative (<=0.8 AI) 11 Test Performed by: [facility] [address] [place] [address] Emergency Room Nurse: Alex Olsen M.D. Ph.D.; [facility]# [id number] 12 Because ethnic data is not always readily [...] 15-29 5 Kidney failure <15 (or dialysis) 13 SEE RESULT BELOW Name: [place] : [address]: David Mobley NP Acct: [id number] Unit: [id number] AGE: 58 Location: [facility] Re12/20/18 SEX: F Status: REG REF SPEC: [id number] HO: 12/20/[address]: David Mobley NP REQ: [id number] RECD: 12/20/18 STATUS:COMP _ SOURCE: URINE SPDESC: ORDERED: Urine Culture Procedure Result Reported Site Urine Culture Final 12/21/18- 1709 ML Organism 1 STREP GROUP B [place] Count 50-75,000 (Many) CFU/ML Susceptibility testing of penicillins and other B-lactams approved by FDA for treatment of Streptococcus pyogenes (Group A Strep) and Streptococcus agalactiae (Group B Strep) is not necessary for clinical purposes and need not be done routinely, since as with vancomycin, resistant strains have not been recognized. (CLSI S493-Y22;p.66) Positive isolates will be saved for one week. Please call the Microbiology Laboratory if further susceptibility testing is needed. * ML - Main Lab . END OF REPORT DEPARTMENT OF PATHOLOGY, [address] [place] [address] Toño Lambert M.D. Director [facility] # [id number] 14 SEE RESULT BELOW Name: [place] : [address]: Quyen Montero MD Acct: [id number] Unit: [id number] AGE: 58 Location: [facility] Re12/09/18 SEX: F Status: REG REF SPEC: [id number] HO: 12/09/18 [facility] DR: Quyen Montero MD REQ: [id number] RECD: 12/09/18 STATUS: ELIZABETH WESTON DR: David Mobley BEACH ATTENDANT _ ORDERED: TP IMAGE ANALYS, HPV/Thin Prep COMMENTS: [id number] FINAL DIAGNOSIS Negative for Intraepithelial lesion or Malignancy HPV RESULTS Date Time Test Result Flag (u) Normal Range 12/09/1845 HPV GIGI Negative Negative The high-risk HPV types detected by the assay include: 16, 18, 31, 33, 35, 39, 45, 51, 52, 56, 58, 59, 66, and 68. SPECIMEN(S) RECEIVED A. Ectocervical/Endocervical CYTOLOGY ADEQUACY Specimen Adequacy: Satisfactory of evaluation Transformation zone component cannot be definitely identified due to presence of atrophy or other hormonal changes Predominance of white blood cells CONTINUED ON NEXT PAGE DEPARTMENT OF PATHOLOGY, [address] [place] [address] Toño Lambert M.D. Director [facility] # [id number] CYTOLOGY PATIENT INFORMATION Patient Information: HPV: High risk HPV RNA testing regardless of pap results. Actual Specimen Date: 12/09/18 Last Menstrual Date: 10/23/14 Date of Last Specimen: 12/04/17 Post Menopausal?: Y Signed by and Reported on: Martha MARIAMA Ramos(ASCP) [id number] This Pap test was evaluated with the assistance of the Transform Software and ServicesPrep Test Imaging System. Due to cytologic findings at the graphic designer microscope, comprehensive manual rescreening by a Bridge Worker may be required. The Pap Smear is a screening test designed to aid in the detection of premalignant and malignant conditions of the uterine cervix. It is not a diagnostic procedure and should not be used as the sole means of detecting cervical cancer. Both false- positive and false- negative reports do occur. Depending on your risk status, a Pap smear should be obtained and evaluated every 1-3 years. END OF REPORT DEPARTMENT OF PATHOLOGY, [address] [place] [address] Toño Lambert M.D. Director [facility] # [id number] 15 Normal Range 180 to 914 Indeterminate Range 145 to 180 Deficient Range <145 16 Therapeutic target for the treatment of diabetes mellitus patients is <7% HBA1C, and in selective patients <6.0%. Please refer to Citizen [place] Diabetes Association diabetic care guidelines for further information. 17 FASTING 10 HOUR Procedures Date Code Description Status 05/01/2019 96005 EKG Tracing & Interpretation Completed 04/29/2019 19776 ECHO Transthoracic, Real-Time 2D With Doppler And Color Completed Flow 04/29/2019 31391 ECHO Transthoracic, Real-Time 2D With Doppler And Color Completed Flow 03/27/2019 95983 EKG Tracing & Interpretation Completed 03/10/2019 12494 EKG Tracing & Interpretation Completed 01/23/2019 72529 Diffusing Capacity Completed 01/23/2019 39541 Plethysmography Determination Lung Volumes & Per Airway Completed Resist 01/23/2019 16142 Pulmonary Function><Bronchodil Completed 01/13/2019 [id number] Mammogram Completed 02/19/2018 [id number] Mammogram Completed 01/09/2017 [id number] Mammogram Completed 01/10/2016 [id number] Mammogram Completed Medical Devices Description No Information Available Encounters Type Date Location Provider Dx Diagnosis Office Visit 05/02/2019 Neurosurgery Vassilios M47.892 Other 12:00p [facility] MD Thad spondylosis, cervical region R20.2 Paresthesia of skin Office Visit 05/01/2019 3:00p [facility] Forrest Myers H81.13 Benign Of Christopher Meyer M.D. paroxysmal vertigo, bilateral I10 Essential (primary) hypertension I42.9 Cardiomyopathy, unspecified I50.32 Chronic diastolic (congestive) heart failure Office Visit 04/22/2019 [place] Donald Andrea H81.13 Benign 12:15p Neurologic M.DHoa paroxysmal [facility] vertigo, bilateral R00.2 Palpitations H53.8 Other visual disturbances R20.2 Paresthesia of skin R56.9 Unspecified convulsions R53.83 Other fatigue Office Visit 03/27/2019 9:00a [place] Ariela Myers R06.00 Dyspnea, Of Christopher Meyer M.D. unspecified I42.9 Cardiomyopathy, unspecified I34.0 Nonrheumatic mitral (valve) insufficiency R60.0 Localized edema H81.13 Benign paroxysmal vertigo, bilateral R00.2 Palpitations Office Visit 03/10/2019 Isaac Galeas I42.9 Cardiomyopathy, 2:30p Cardiology Deejay, N.P. unspecified I34.0 Nonrheumatic mitral (valve) insufficiency R60.0 Localized edema R06.00 Dyspnea, unspecified Office Visit 02/06/2019 10:00a [facility] Internal David Itz H81.13 Benign paroxysmal Medicine - [facility] BEACH ATTENDANT vertigo, bilateral H53.8 Other visual disturbances Office Visit 01/29/2019 Pulmonology And Anh J45.909 Unspecified asthma , 10:45a Sleep Services Of MD Janay uncomplicated Credit Control Clerk J98.4 Other disorders of lung G47.33 Obstructive sleep apnea (adult) (pediatric) Office Visit 12/25/2018 8:20a Rheumatology Manny M70.70 Other bursitis of Services Of Christopher Pickett M.D. hip, unspecified hip M54.2 Cervicalgia R20.2 Paresthesia of skin Office Visit 12/20/2018 3:40p [facility] Internal David Itz, BEACH ATTENDANT R10.11 Right upper Medicine - [facility] quadrant pain R10.32 Left lower quadrant pain R33.8 Other retention of urine R10.812 Left upper quadrant abdominal tenderness M54.32 Sciatica, left side Office Visit 12/04/2018 2:40p [facility] Internal Earlene Sanderson, M54.2 [facility].Lisa H81.13 Benign paroxysmal vertigo, bilateral R20.2 Paresthesia of skin I10 Essential (primary) hypertension Z11.59 Encounter for screening for other viral diseases Assessments Date Code Description Provider 05/02/2019 M47.892 Other spondylosis, cervical region Diamond Oneil MD 05/02/2019 R20.2 Paresthesia of skin Diamond Oneil MD 05/01/2019 H81.13 Benign paroxysmal vertigo, bilateral Forrest Meyer M.D. 05/01/2019 I10 Essential (primary) hypertension Forrest Meyer M.D. 05/01/2019 I42.9 Cardiomyopathy, unspecified Forrest Meyer M.D. 05/01/2019 I50.32 Chronic diastolic (congestive) heart Forrest Meyer M.D. failure 04/29/2019 I42.9 Cardiomyopathy, unspecified Forrest Meyer M.D. 04/29/2019 I42.9 Cardiomyopathy, unspecified Traveling ECHO 1 04/22/2019 H81.13 Benign paroxysmal vertigo, bilateral Donald Andrea M.D. 04/22/2019 R00.2 Palpitations Donald Andrea M.D. 04/22/2019 H53.8 Other visual disturbances Donald Andrea M.D. 04/22/2019 R20.2 Paresthesia of skin Donald Andrea M.D. 04/22/2019 R56.9 Unspecified convulsions Donald Andrea M.D. 04/22/2019 R53.83 Other fatigue Donald Andrea M.D. 03/27/2019 R06.00 Dyspnea, unspecified Forrest Meyer M.D. 03/27/2019 I42.9 Cardiomyopathy, unspecified Forrest Meyer M.D. 03/27/2019 I34.0 Nonrheumatic mitral (valve) insufficiency Forrest Meyer M.D. 03/27/2019 R60.0 Dependent edema Forrest Meyer M.D. 03/27/2019 H81.13 Benign paroxysmal vertigo, bilateral Forrest Meyer M.D. 03/27/2019 R00.2 Palpitations Forrest Meyer M.D. 03/10/2019 R06.00 Dyspnea, unspecified Forrest Meyer M.D. 03/10/2019 I42.9 Cardiomyopathy, unspecified Yael S. Foster, N.P. 03/10/2019 I34.0 Nonrheumatic mitral (valve) insufficiency Yael S. Foster, N.P. 03/10/2019 R60.0 Dependent edema Yael S. Foster, N.P. 03/10/2019 R06.00 Dyspnea, unspecified Yael S. Foster, N.P. 02/25/2019 H81.13 Benign paroxysmal vertigo, bilateral Donald Andrea M.D. 02/25/2019 H53.8 Other visual disturbances Donald Andrea M.D. 02/25/2019 M54.2 Cervicalgia Donald Andrea M.D. 02/25/2019 R20.2 Paresthesia of skin Donald Andrea M.D. 02/25/2019 M54.32 Sciatica, left side Donald Andrea M.D. 02/25/2019 R53.83 Other fatigue Donald Andrea M.D. 02/25/2019 M79.18 Myalgia, other site Donald Andrea M.D. 02/06/2019 H81.13 Benign paroxysmal vertigo, bilateral David Itz, BEACH ATTENDANT 02/06/2019 H53.8 Other visual disturbances David Itz, BEACH ATTENDANT 01/29/2019 J45.909 Unspecified asthma, uncomplicated Anh Gustafson MD 01/29/2019 J98.4 Other disorders of lung Anh Gustafson MD 01/29/2019 G47.33 Obstructive sleep apnea (adult) Anh Gustafson MD (pediatric) 01/23/2019 J45.909 Unspecified asthma, uncomplicated Anh Gustafson MD 12/25/2018 M70.70 Other bursitis of hip, unspecified hip Manny Pickett M.D. 12/25/2018 M54.2 Cervicalgia Manny Pickett M.D. 12/25/2018 R20.2 Paresthesia of skin Manny Pickett M.D. 12/20/2018 R10.11 Right upper quadrant pain David Itz, BEACH ATTENDANT 12/20/2018 R10.32 Left lower quadrant pain David Itz, BEACH ATTENDANT 12/20/2018 R33.8 Other retention of urine David Itz, BEACH ATTENDANT 12/20/2018 R10.812 Left upper quadrant abdominal tenderness David Itz, BEACH ATTENDANT 12/20/2018 M54.32 Sciatica, left side David Itz, BEACH ATTENDANT 12/17/2018 I10 Essential (primary) hypertension Nurse Visit A 12/04/2018 M54.2 Cervicalgia Earlene Sanderson M.D. 12/04/2018 H81.13 Benign paroxysmal vertigo, bilateral Earlene Sanderson M.D. 12/04/2018 R20.2 Paresthesia of skin Earlene Sanderson M.D. 12/04/2018 I10 Essential (primary) hypertension Earlene Sanderson M.D. 12/04/2018 Z11.59 Encounter for screening for other viral Earlene Sanderson M.D. diseases Plan of Treatment Future Appointment(s):08/06/2019 3:00 pm - Diamond Oneil MD at [facility]08/01/2019 10:15 am - Donald Andrea M.D. at [place] [facility]02/09/2020 2:30 pm - Merced Beltre NP at [facility]10/27/2019 3:00 pm - Manny Pickett M.D. at [facility]02/25/2019 - Donald Andrea M.D.H81.13 Benign paroxysmal vertigo, bilateralFollow up:Follow up in 8 weeks (ok for lunch ) INGRID for recent [facility] neurology hmoalrgrimK54.8 Other visual dxawviuweapyT36.2 KabnlmhliyiW84.2 Paresthesia of skinM54.32 Sciatica, left sideR53.83 Other oiyrgxjS17.18 Myalgia, other site Functional Status Description No Information Available Mental Status Description No Information Available Referrals Refer to Reason for Referral Status Appt Date Manny Richards M.D. Resent referral to [facility] Sent Scheduling 03/14/19- they will call pt to schedule. FP Pt not scheduled yet 04/17/19 [address] [place] [address] [phone] Diamond Oneil MD Sent 02/04/2019 [address] [place] [address] [place] [address] [phone] [facility] Received Complete [address] [facility] [address] [place] [address] [phone]
--- OUTSIDE RECORDS SUMMARY | 2019-05-27 15:02 | XMS REPORT | Continuity of Care Document ---
:1960 External Reference #:[id number] Author Name Donald Andrea M.D. (transmitted by agent of provider Bekah Lipscomb) Address [address], [place] [address] Care Team Providers Name Role Phone Cindi Quinteros FNP - Family Care Team Information Sorting Supervisor [phone] Julian Sanders MD - Cardiovascular Care Team Information Sorting Supervisor [phone] Disease David Mobley NP - Internal Medicine Care Team Information Sorting Supervisor [phone] Problems Active Problems Provider Date Rheumatic mitral [...] Former Cigarette Smoker Unknown Smoking Status Reviewed: 04/22/19 Former Cigarette Smoker ETOH Use Denies alcohol [...] Medications SIG Qnty Indications Ordering Date Provider Metoprolol Succinate 1/2 by mouth 45tabs Forrest Myers 03/20/2019 ER every day Lizeth Meyer 25mg Tablets ER 24HR Proair HFA Inhale One puff 8.5units J45.909 Anh Gustafson, 07/22/2018 108(90Base) By Mouth Every 6 mcg/Act Aerosol Hours as Needed Wrist Splint 10/18/17 does not 2units M35.01 Manny Pickett, 04/09/2018 Misc use. use daily M.D. to help with numbness and tingling in the right hand Diagnosis g56.01 Losartan Potassium take 1 tablet by 90tabs Yael Villalba, 11/06/2017 25mg mouth every day N.P. Tablets Ursodiol 1 tabs w/ 180caps Unknown 300mg Capsules breakfast, 1 tab w/ lunch, 1 tab w/ dinner Cpap nightly Unknown Device Vitamin D3 High 2 by mouth every Unknown Potency day 1000Unit Capsules Levothyroxine Sodium Take 1 Tablet By 90tabs David Mobely NP Mouth Every Day 50mcg Tablets B Complex-B12 Unknown Tablets Fluticasone as needed Unknown Propionate Nasal [place] 24- Hour 50mcg/Act Suspension History Medications Torsemide 1 by mouth once 1tabs Forrest Myers 03/26/2019 - 10mg today Lizeth Meyer 03/26/2019 Tablets Amoxicillin/Clavulan take one tablet 14tabs David Mobley NP 12/23/2018 - ate Potassium q12 hours for 7 12/30/2018 days 875-125mg Tablets Omeprazole One tablet 30tabs R10.11 David Mobley NP 12/20/2018 - 20mg daily 03/09/2019 Tablets Immunizations CPT Code Status Date Vaccine Reaction Lot # 21210 Given 11/09/2017 Influenza Virus Vaccine, Quadrivalent, Split, Preservative Free 13453 Given 11/24/2016 Zoster (Zostavax) No immediate [id number] reaction.. 83110 Given 11/18/2014 Influenza Virus 3Yrs & Over Vital Signs Date Vital Result Comment 04/22/2019 12:23pm Height 64 inches 5'4" Weight 216.00 lb Heart Rate 79 /min BP Systolic 134 mmHg BP Diastolic 88 mmHg BMI (Body Mass Index) 37.1 kg/m2 03/27/2019 8:47am Height 64 inches 5'4" Weight 216.00 lb with shoes Heart Rate 63 /min BP Systolic Sitting 116 mmHg Lue large cuff BP Diastolic Sitting 72 mmHg Lue large cuff BP Systolic Standing 118 mmHg Lue large cuff BP Diastolic Standing 80 mmHg Lue large cuff Respiratory Rate 18 /min O2 % BldC Oximetry 98 % on Ra BMI (Body Mass Index) 37.1 kg/m2 Ejection Fraction 60-65% ECHO 08/27/2018 Results Test Acquired Date Facility Test Result H/L Range Note Basic Metabolic 03/27/2019 [facility] Sodium 138 mmol/L Normal 135-[address] [place], [place] [id number] [phone] Potassium 4.6 mmol/L Normal 3.5-5.0 Chloride 102 mmol/L Normal 101-111 Co2 Carbon Dioxide 30 mmol/L Normal 22-32 Anion Gap 6 mmol/L Normal 2-11 Glucose 76 mg/dL Normal 70-100 Blood Urea Nitrogen 18 mg/dL Normal 6-24 Creatinine 0.85 mg/dL Normal 0.51-0.95 BUN/Creatinine Ratio 21.2 High 8-20 Calcium 9.7 mg/dL Normal 8.6-10.3 Egfr Non- 68.5 >60 Egfr 82.8 >60 1 Laboratory test 03/27/2019 [facility] C Reactive 7.83 mg/L Normal <8.01 finding [address] [facility] [place] [address] [phone] Erythrocyte Sed Rate 38 mm/Hr High 0-29 Iron & Iron Binding 03/27/2019 [facility] Iron 104 g/dL Normal 50-212 Capacity [address] [place] [address] [phone] Unsaturated Iron Binding < 443 g/dL Total Iron Binding Capacity 458 g/dL High 250-450 Transferrin 327 mg/dL Normal 203-362 % Iron Saturation 23 % Normal 15-55 Laboratory test 03/27/2019 [facility] Magnesium 2.2 mg/dL Normal 1.9-2.7 finding [address] [place] [address] [phone] B-Type Natriuretic Peptide BNP 19 pg/mL <=100 Ammonia 44 mcmol/L Normal 16-53 Basic Metabolic 03/20/2019 [facility] Sodium 140 mmol/L Normal 135-145 Panel [address] [place] [address] [phone] Potassium 4.4 mmol/L Normal 3.5-5.0 Chloride 104 mmol/L Normal 101-111 Co2 Carbon Dioxide 30 mmol/L Normal 22-32 Anion Gap 6 mmol/L Normal 2-11 Glucose 81 mg/dL Normal 70-100 Blood Urea Nitrogen 16 mg/dL Normal 6-24 Creatinine 1.15 mg/dL High 0.51-0.95 BUN/Creatinine Ratio 13.9 Normal 8-20 Calcium 9.6 mg/dL Normal 8.6-10.3 Egfr Non- 48.3 >60 Egfr 58.4 >60 2 CBC Auto 03/13/2019 [facility] White Blood 6.7 10^3/uL Normal 3.5-10.[address] [place] [address] [phone] Red Blood Count 3.77 10^6/uL Normal 3.70-4.87 [...] Red Blood Cells % 0.1 Laboratory 03/13/2019 [facility] TSH (Thyroid 3.02 Normal 0.34 -5.[address] Stim Horm) mcIU/mL [place], [place] [address] [phone] Vitamin B12 334 pg/mL Normal 180-914 3 Ferritin 88.1 ng/mL Normal 11-307 Comp Metabolic 03/13/2019 [facility] Sodium 140 mmol/L Normal 135-[address] [place] [address] [phone] Potassium 4.5 mmol/L Normal 3.5-5.0 Chloride 103 [...] Egfr 88.8 >60 4 Poc Urinalysis 01/29/2019 [facility] Poc Glucose, NEGATIVE Negative [address] [place] [address] [phone] Poc Bilirubin, Urine NEGATIVE Negative Poc Ketone, Urine NEGATIVE Negative Poc Specific [place], Urine 1.015 Normal 1.010-1.030 Poc Blood, Urine TRACE-LYSED Negative 5 Poc pH, Urine 7.0 Normal 5-9 Poc Protein, Urine NEGATIVE Negative Poc Urobilinogen, Urine 0.2 Negative Poc Nitrite, Urine NEGATIVE Negative Poc Leukocytes, Urine TRACE Negative Poc Color, Urine YELLOW Poc Clarity, Urine CLEAR Urine Culture And 01/29/2019 [facility] Urine Culture SEE RESULT 6, [address] [place] [address] [phone] Rubeola Measles Igg 01/02/2019 [facility] Rubeola Positive [address] (Measles) [place] [address] Antibody [phone] Rubeola IgG Antibody Index 6.3 9 Mumps Igg 01/02/2019 [facility] Mumps Virus IgG Antibody Positive [address] [place], [place] [address] [phone] Mumps IgG Antibody Index 3.4 11 Laboratory test 01/02/2019 [facility] Rubella Immune Immune finding [address] [place] [address] [phone] CBC Auto Diff 12/20/2018 [facility] White Blood 7.6 Normal 3.5 -10.[address] Count 10^3/uL [place], [place] [address] [phone] Red Blood Count 4.00 10^6/uL Normal 3.70-4.87 [...] Blood Cells % 0.0 Comp Metabolic 12/20/2018 [facility] Sodium 139 mmol/L Normal 135-[address] [place] [address] [phone] Potassium 5.0 mmol/L Normal 3.5-5.0 Chloride 103 [...] Egfr 69.5 >60 12 Laboratory test 12/20/2018 [facility] Lipase 37 U/L Normal 11.0-82.[address] [place] [address] [phone] Urinalysis 12/20/2018 [facility] Urine Color Yellow Profile [address] [place] [address] [phone] Urine Appearance Clear Urine Specific [place] 1.013 Normal 1.010-1.030 Urine pH 5.0 Normal [...] Present Abnormal Absent Urine Culture And 12/20/2018 [facility] Urine Culture SEE RESULT [address] [place] [address] [phone] Cytology 12/09/2018 [facility] Cytology SEE RESULT [address] [place] [address] [phone] PDFReport [id number] <SEE NOTE> Laboratory test 12/09/2018 [facility] Vitamin B12 361 pg/mL Normal 180-914 15 finding [address] [place] [address] [phone] Hemoglobin A1c (Glyco HGB) 5.4 % Normal 4.0-5.6 16 Glucose 100 mg/dL Normal 70-100 17 Hepatitis C Antibody 12/09/2018 [facility] HCV Index 0.01 s/c [address] [place] [address] [phone] Hepatitis C Antibody Negative Negative 1 Because [...] 5 Kidney failure <15 (or dialysis) 5 Tool Machine Shop Supervisor: [id number] SEE RESULT BELOW Name: PUSHPA PITTS : [address]: Sita Mendoza MD Acct: [id number] Unit: [id number] AGE: 58 Location: [facility] Re01/29/19 SEX: F Status: DEP ER SPEC: [id number] HO: 01/29/19-[address]: Sita Mendoza MD REQ: [id number] RECD: 01/29/19-155 STATUS: KEVIN WESTON DR: Isaac [facility] David Mobley FIRE MANAGEMENT OFFICER _ SOURCE: URINE SPDESC: ORDERED: Urine Culture COMMENTS: [id number] Procedure Result Reported Site Urine Culture Final 01/30/19- 1507 ML Organism 1 STREP GROUP B [place] Count 10-25,000 (Moderate) CFU/ML Susceptibility testing of penicillins and other B-lactams approved by FDA for treatment of Streptococcus pyogenes (Group A Strep) and Streptococcus agalactiae (Group B Strep) is not necessary for clinical purposes and need not be done routinely, since as with vancomycin, resistant strains have not been recognized. (CLSI Y007-V46;p.66) Positive isolates will be saved for one week. Please call the Microbiology Laboratory if further susceptibility testing is needed. * ML - Main Lab . END OF REPORT DEPARTMENT OF PATHOLOGY, [address] [place] [address] Toño Lambert M.D. Director [facility] # [id number] 8 Results suggest response to immunization or prior exposure to the virus. REFERENCE VALUE Vaccinated: Positive (>=1.1 AI) Unvaccinated: Negative (<=0.8 AI) 9 Test Performed by: [facility] [place] [address] Big 6 Dealer: Alex Olsen M.D. Ph.D.; CLIA# [id number] 10 Results suggest response to immunization or prior exposure to the virus. REFERENCE VALUE Vaccinated: Positive (>=1.1 AI) Unvaccinated: Negative (<=0.8 AI) 11 Test Performed by: [place] [address] Big 6 Dealer: Alex Olsen M.D. Ph.D.; CLIA# [id number] 12 Because ethnic data is not always [...] [address]: David Mobley NP Acct: [id number] Unit: [id number] AGE: 58 Location: [facility] Re12/20/18 SEX: F Status: REG REF SPEC: [id number] HO: 12/20/[address]: David Mobley NP REQ: [id number] RECD: 12/20/18 STATUS:COMP _ SOURCE: URINE SPDESC: ORDERED: Urine Culture Procedure Result Reported Site Urine Culture Final 12/21/18- 1709 ML Organism 1 STREP GROUP B [place] Count 50-75,000 (Many) CFU/ML Susceptibility testing of penicillins and other B-lactams approved by FDA for treatment of Streptococcus pyogenes (Group A Strep) and Streptococcus agalactiae (Group B Strep) is not necessary for clinical purposes and need not be done routinely, since as with vancomycin, resistant strains have not been recognized. (CLSI D072-C99;p.66) Positive isolates will be saved for one week. Please call the Microbiology Laboratory if further susceptibility testing is needed. * ML - Main Lab . END OF REPORT DEPARTMENT OF PATHOLOGY, [address] [place] [address] Toño Lambert M.D. Director [facility] # [id number] 14 SEE RESULT BELOW Name: PUSHPA PITTS : [address]: Quyen Montero MD Acct: [id number] Unit: [id number] AGE: 58 Location: [facility] Re12/09/18 SEX: F Status: REG REF SPEC: [id number] HO: 12/09/180845 [facility] DR: Quyen Montero MD REQ: [id number] RECD: 12/09/18 STATUS: ELIZABETH WESTON DR: David Mobley FIRE MANAGEMENT OFFICER _ ORDERED: TP IMAGE ANALYS, HPV/Thin Prep COMMENTS: [id number] FINAL DIAGNOSIS Negative for Intraepithelial lesion or Malignancy HPV RESULTS Date Time Test Result Flag (u) Normal Range 12/09/18 0845 HPV GIGI Negative Negative The high-risk HPV [...] CONTINUED ON NEXT PAGE DEPARTMENT OF PATHOLOGY, [address] [place] [address] Toño Lambert M.D. Director [facility] # [id number] CYTOLOGY PATIENT INFORMATION Patient Information: HPV: High risk HPV RNA testing regardless of pap results. Actual Specimen Date: 12/09/18 Last Menstrual Date: 10/23/14 Date of Last Specimen: 12/04/17 Post Menopausal?: Y Signed by and Reported on: MARIAMA Terrazas(ASCP) [id number] This Pap test was evaluated with the assistance of the [facility] CEINPrep Test Imaging System. Due to cytologic findings at the resource development director microscope, comprehensive manual rescreening by a [place] Machine Operator Helper may be required. The Pap Smear is [...] years. END OF REPORT DEPARTMENT OF PATHOLOGY, [address] [place] [address] Toño Lambert M.D. Director [facility] # [id number] 15 Normal Range 180 to 914 Indeterminate Range 145 to 180 Deficient Range <145 16 Therapeutic target for the treatment of diabetes mellitus patients is <7% HBA1C, and in selective patients <6.0%. Please refer to [place] [employer] diabetic care guidelines for further information. 17 FASTING 10 HOUR Procedures Date Code Description Status 03/27/2019 51866 EKG Tracing & Interpretation Completed 03/10/2019 22818 EKG Tracing & Interpretation Completed 01/23/2019 92746 Diffusing Capacity Completed 01/23/2019 62221 Plethysmography Determination Lung Volumes & Per Airway Completed Resist 01/23/2019 45819 Pulmonary Function><Bronchodil Completed 01/13/2019 61048673 Mammogram Completed 02/19/2018 54727960 Mammogram Completed 01/09/2017 28567165 Mammogram Completed 01/10/2016 16424455 Mammogram Completed Medical Devices Description No Information Available Encounters Type Date Location Provider Dx Diagnosis Office Visit 04/22/2019 [facility] Donald Andrea, H81.13 Benign paroxysmal 12:15p Services Of Christopher Stanley vertigo, bilateral R00.2 Palpitations H53.8 Other visual disturbances R20.2 Paresthesia of skin R56.9 Unspecified convulsions R53.83 Other fatigue Office Visit 03/27/2019 9:00a [facility] Forrest Myers R06.00 Dyspnea, Of Christopher Meyer M.D. unspecified I42.9 Cardiomyopathy, unspecified I34.0 Nonrheumatic mitral (valve) insufficiency R60.0 Localized edema H81.13 Benign paroxysmal vertigo, bilateral R00.2 Palpitations Office Visit 03/10/2019 Isaac Galeas I42.9 Cardiomyopathy, 2:30p Cardiology Deejay, N.PHoa unspecified I34.0 Nonrheumatic mitral (valve) insufficiency R60.0 Localized edema R06.00 Dyspnea, unspecified Office Visit 02/06/2019 10:00a [facility] Internal David Mobley H81.13 [facility] FIRE MANAGEMENT OFFICER vertigo, bilateral H53.8 Other visual disturbances Office Visit 01/29/2019 Pulmonology And Anh J45.909 Unspecified asthma , 10:45a Sleep Services Of MD Janay uncomplicated [facility] J98.4 Other disorders of lung G47.33 Obstructive sleep apnea (adult) (pediatric) Office Visit 12/25/2018 8:20a Rheumatology Manny M70.70 Other bursitis of Services Of Christopher Pickett M.D. hip, unspecified hip M54.2 Cervicalgia R20.2 Paresthesia of skin Office Visit 12/20/2018 3:40p [facility] Internal Davidshea Mobley, FIRE MANAGEMENT OFFICER R10.11 Right upper Medicine - [facility] quadrant pain R10.32 Left lower quadrant pain R33.8 Other retention of urine R10.812 Left upper quadrant abdominal tenderness M54.32 Sciatica, left side Office Visit 12/04/2018 2:40p [facility] Internal Earlene Kin, M54.2 Cervicalgia [facility] Liz[facility] H81.13 Benign paroxysmal vertigo, bilateral R20.2 Paresthesia of skin I10 Essential (primary) hypertension Z11.59 Encounter for screening for other viral diseases Assessments Date Code Description Provider 04/22/2019 H81.13 Benign paroxysmal vertigo, bilateral Donald [...] H81.13 Benign paroxysmal vertigo, bilateral David Itz, FIRE MANAGEMENT OFFICER 02/06/2019 H53.8 Other visual disturbances David Itz, FIRE MANAGEMENT OFFICER 01/29/2019 J45.909 Unspecified asthma, uncomplicated Anh Gustafson [...] R10.11 Right upper quadrant pain David Itz, FIRE MANAGEMENT OFFICER 12/20/2018 R10.32 Left lower quadrant pain David Itz, FIRE MANAGEMENT OFFICER 12/20/2018 R33.8 Other retention of urine David Itz, FIRE MANAGEMENT OFFICER 12/20/2018 R10.812 Left upper quadrant abdominal tenderness David Itz, FIRE MANAGEMENT OFFICER 12/20/2018 M54.32 Sciatica, left side David Itz, FIRE MANAGEMENT OFFICER 12/17/2018 I10 Essential (primary) hypertension Nurse Visit A 12/04/2018 M54.2 Cervicalgia Earlene Sanderson M.D. 12/04/2018 H81.13 Benign paroxysmal vertigo, bilateral Earlene Sanderson M.D. 12/04/2018 R20.2 Paresthesia of skin Earlene Sanderson M.D. 12/04/2018 I10 Essential (primary) hypertension Earlene Sanderson M.D. 12/04/2018 Z11.59 Encounter for screening for other viral Earlene Sanderson M.D. diseases Plan of Treatment Future Appointment(s):08/01/2019 10:15 am - Donald Andrea M.D. at [place] [facility]04/29/2019 3:00 pm - Traveling ECHO 1 at [facility]02/09/2020 2:30 pm - Merced Beltre NP at [facility]05/01/2019 3:00 pm - Forrest Meyer M.D. at [facility]05/12/2019 2:00 pm - Diamond Oneil MD at [facility]10/27/2019 3:00 pm - Manny Pickett M.D. at [facility]02/25/2019 - Donald Andrea M.D.H81.13 Benign paroxysmal vertigo, bilateralFollow up:Follow up in 8 weeks (ok for lunch) INGRID for recent [facility] neurology phufjotpziJ74.8 Other visual clrooufruhenK04.2 VngjxctmeeuJ09.2 Paresthesia of skinM54.32 Sciatica, left sideR53.83 Other dzklvbiS82.18 Myalgia, other site Functional Status Description No Information Available Mental Status Description No Information Available Referrals Refer to Dr Reason for Referral Status Appt Date Manny Richards M.D. Resent referral to [facility] Sent Scheduling 03/14/19- they will call pt to schedule. FP Pt not scheduled yet 04/17/19 [address] [place] [address] [phone] Diamond Oneil MD Sent 02/04/2019 [address] [place] [address] [phone] [facility] - Res[facility] Received Complete [address] [facility] [address] [facility] [address]St [place] [address] [phone] Donald Andrea M.D. Sent 03/27/2019 [address] [facility] [place] [address] [phone]
--- OUTSIDE RECORDS SUMMARY | 2019-05-27 15:02 | XMS REPORT | Continuity of Care Document ---
:1960 External Reference #:[id number] Author Name Traveling ECHO 1 (transmitted by agent of provider Veena Rodriguez) Address [address] [place] [address] Care Team Providers Name Role Phone Cindi Quinteros FNP - Family Care Team Information Training And Development Project Leader Julian Sanders MD - Cardiovascular Care Team Information Training And Development Project Leader Disease David Mobley NP - Internal Medicine Care Team Information Training And Development Project Leader Problems Active Problems Provider Date Rheumatic mitral [...] Medications SIG Qnty Indications Ordering Date Provider Aldactone 1 by mouth every 60tabs Forrest Myers 05/01/2019 25mg Tablets day Lizeth Meyer Torsemide 1 by mouth prn 30tabs Forrest [...] mouth every day N.P. Tablets Ursodiol 1 cap po at night 180caps Unknown 300mg Capsules Cpap nightly Unknown Device Vitamin D3 High 2 by mouth every Unknown Potency day 1000Unit Capsules Levothyroxine Sodium Take 1 Tablet By 90tabs David Mobley NP Mouth Every Day 50mcg Tablets B Complex-B12 Unknown Tablets Fluticasone as needed Unknown Propionate Nasal [place] 24- Hour 50mcg/Act Suspension History Medications Lasix 1 tab by mouth, 90tabs Forrest Myers 05/01/2019 - 20mg Tablets after checking Lizeth Meyer 05/01/2019 weight Torsemide 1 by mouth once 1tabs Forrest Myers 03/26/2019 - 10mg today Lizeth Meyer 03/26/2019 Tablets Amoxicillin/Clavula take one tablet 14tabs David Mobley NP 12/23/2018 - desi Potassium q12 hours for 7 12/30/2018 days 875-125mg Tablets Omeprazole One tablet daily 30tabs R10.11 David Mobley NP 12/20/2018 - 20mg 03/09/2019 Tablets Immunizations CPT Code Status Date Vaccine Reaction Lot # [id number] Given 11/09/2017 Influenza Virus Vaccine, Quadrivalent, Split, Preservative Free [id number] Given 11/24/2016 Zoster (Zostavax) No immediate [id number] reaction.. 07934 Given 11/18/2014 Influenza Virus 3Yrs & Over [...] Result H/L Range Note Basic Metabolic 03/27/2019 [facility] Sodium 138 mmol/L Normal 135-145 Panel [address] [place] [address] [phone] Potassium 4.6 mmol/L Normal 3.5-5.0 Chloride 102 mmol/L Normal 101-111 Co2 Carbon Dioxide 30 mmol/L Normal 22-32 Anion Gap 6 mmol/L Normal 2-11 Glucose 76 mg/dL Normal 70-100 Blood Urea Nitrogen 18 mg/dL Normal 6-24 Creatinine 0.85 mg/dL Normal 0.51-0.95 BUN/Creatinine Ratio 21.2 High 8-20 Calcium 9.7 mg/dL Normal 8.6-10.3 Egfr Non- 68.5 >60 Egfr 82.8 >60 1 Laboratory test 03/27/2019 [facility] C Reactive 7.83 mg/L Normal <8.01 finding [facility] [place] [place] [address] [phone] Erythrocyte Sed Rate 38 mm/Hr High 0-29 Iron & Iron Binding 03/27/2019 [facility] Iron 104 g/dL Normal 50-[address] [place] [phone] Unsaturated Iron Binding < 443 g/dL Total Iron Binding Capacity 458 g/dL High 250-450 Transferrin 327 mg/dL Normal 203-362 % Iron Saturation 23 % Normal 15-55 Laboratory test 03/27/2019 [facility] Magnesium 2.2 mg/dL Normal 1.9-2.[address] [place] [address] [phone] B-Type Natriuretic Peptide BNP 19 pg/mL <=100 Ammonia 44 mcmol/L Normal 16-53 Basic Metabolic 03/20/2019 [facility] Sodium 140 mmol/L Normal 135-[address] [place] [address] [phone] Potassium 4.4 mmol/L Normal 3.5-5.0 Chloride 104 mmol/L Normal 101-111 Co2 Carbon Dioxide 30 mmol/L Normal 22-32 Anion Gap 6 mmol/L Normal 2-11 Glucose 81 mg/dL Normal 70-100 Blood Urea Nitrogen 16 mg/dL Normal 6-24 Creatinine 1.15 mg/dL High 0.51-0.95 BUN/Creatinine Ratio 13.9 Normal 8-20 Calcium 9.6 mg/dL Normal 8.6-10.3 Egfr Non- 48.3 >60 Egfr 58.4 >60 2 CBC Auto 03/13/2019 [facility] White Blood 6.7 10^3/uL Normal 3.5-10.[address] [place] [address] [phone] Red Blood Count 3.77 10^6/uL Normal 3.70-4.87 [...] Red Blood Cells % 0.1 Laboratory 03/13/2019 [facility] TSH (Thyroid 3.02 Normal 0.34 -5.60 test finding [address] Stim Horm) mcIU/[place] [address] [phone] Vitamin B12 334 pg/mL Normal 180-914 3 Ferritin 88.1 ng/mL Normal 11-307 Comp Metabolic 03/13/2019 [facility] Sodium 140 mmol/L Normal 135-[address] [place] [address] [phone] Potassium 4.5 mmol/L Normal 3.5-5.0 Chloride 103 [...] Egfr 88.8 >60 4 Poc Urinalysis 01/29/2019 [facility] Poc Glucose, NEGATIVE Negative [address] [place] [address] [phone] Poc Bilirubin, Urine NEGATIVE Negative Poc Ketone, Urine NEGATIVE Negative Poc Specific [place], Urine 1.015 Normal 1.010-1.030 Poc Blood, Urine TRACE-LYSED Negative 5 Poc pH, Urine 7.0 Normal 5-9 Poc Protein, Urine NEGATIVE Negative Poc Urobilinogen, Urine 0.2 Negative Poc Nitrite, Urine NEGATIVE Negative Poc Leukocytes, Urine TRACE Negative Poc Color, Urine YELLOW Poc Clarity, Urine CLEAR Urine Culture And 01/29/2019 [facility] Urine Culture SEE RESULT 6, [address] [place] [place] [address] [phone] Mumps Igg 01/02/2019 [facility] Mumps Virus Positive [address] [place] [address] [phone] Mumps IgG Antibody Index 3.4 9 Rubeola Measles 01/02/2019 [facility] Rubeola (Measles) Positive 10 Igg AB [address] [place] [address] [phone] Rubeola IgG Antibody Index 6.3 11 Laboratory test 01/02/2019 [facility] Rubella Immune Immune finding [address] [place] [address] [phone] CBC Auto Diff 12/20/2018 [facility] White Blood 7.6 Normal 3.5 -10.[address] Count 10^3/[place] [address] [phone] Red Blood Count 4.00 10^6/uL Normal 3.70-4.87 [...] Blood Cells % 0.0 Comp Metabolic 12/20/2018 [facility] Sodium 139 mmol/L Normal 135-[address] [place] [address] [phone] Potassium 5.0 mmol/L Normal 3.5-5.0 Chloride 103 [...] Egfr 69.5 >60 12 Laboratory test 12/20/2018 [facility] Lipase 37 U/L Normal 11.0-82.[address] [place] [address] [phone] Urinalysis 12/20/2018 [facility] Urine Color Yellow Profile [address] [place] [address] [phone] Urine Appearance Clear Urine Specific [place] 1.013 Normal 1.010-1.030 Urine pH 5.0 Normal [...] Present Abnormal Absent Urine Culture And 12/20/2018 [facility] Urine Culture SEE RESULT [address] [place] [address] [phone] Cytology 12/09/2018 [facility] Cytology SEE RESULT [address] [place] [address] [phone] PDFReport [id number] <SEE NOTE> Laboratory test 12/09/2018 [facility] Vitamin B12 361 pg/mL Normal 180-914 15 finding [address] [place] [address] [phone] Hemoglobin A1c (Glyco HGB) 5.4 % Normal 4.0-5.6 16 Glucose 100 mg/dL Normal 70-100 17 Hepatitis C Antibody 12/09/2018 [facility] HCV Index 0.01 s/c [address] [place] [address] [phone] Hepatitis C Antibody Negative Negative 1 Because [...] 5 Kidney failure <15 (or dialysis) 5 Basting Cleaner: [id number] 7 SEE RESULT BELOW Name: PUSHPA PITTS : [address]: Sita Mendoza MD Acct: [id number] Unit: [id number] AGE: 58 Location: [facility] Re01/29/19 SEX: F Status: DEP ER SPEC: [id number] HO: 01/29/19-[address] [facility] [address]: Sita Mendoza MD REQ: [id number] RECD: 01/29/19 STATUS: KEVIN WESTON DR: [facility] David Mobley BOAT CARPENTER _ SOURCE: URINE SPDESC: ORDERED: Urine Culture COMMENTS: [id number] Procedure Result Reported Site Urine Culture Final 01/30/19- 1507 ML Organism 1 STREP GROUP B [place] Count 10-25,000 (Moderate) CFU/ML Susceptibility testing of penicillins and other B-lactams approved by FDA for treatment of Streptococcus pyogenes (Group A Strep) and Streptococcus agalactiae (Group B Strep) is not necessary for clinical purposes and need not be done routinely, since as with vancomycin, resistant strains have not been recognized. (CLSI N082-Q13;p.66) Positive isolates will be saved for one week. Please call the Microbiology Laboratory if further susceptibility testing is needed. * - [facility] . END OF REPORT DEPARTMENT OF PATHOLOGY, [address] [place] [address] Toño Lambert M.D. Director [facility] # [id number] 8 Results suggest response to immunization or prior exposure to the virus. REFERENCE VALUE Vaccinated: Positive (>=1.1 AI) Unvaccinated: Negative (<=0.8 AI) 9 Test Performed by: [facility] [place] [address] Emergency Department Director: Alex Olsen M.D. Ph.D.; CLIA# [id number] 10 Results suggest response to immunization or prior exposure to the virus. REFERENCE VALUE Vaccinated: Positive (>=1.1 AI) Unvaccinated: Negative (<=0.8 AI) 11 Test Performed by: [facility] [place] [address] Emergency Department Director: Alex Olsen M.D. Ph.D.; CLIA# [id number] 12 Because ethnic data is not always [...] [address]: David Mobley NP Acct: [id number] Unit: [id number] AGE: 58 Location: [facility] Re12/20/18 SEX: F Status: REG REF SPEC: [id number] HO: 12/20/[address]: David Mobley NP REQ: [id number] RECD: 12/20/18 STATUS:COMP _ SOURCE: URINE SPDESC: ORDERED: Urine Culture Procedure Result Reported Site Urine Culture Final 12/21/18- 1709 ML Organism 1 STREP GROUP B [place] Count 50-75,000 (Many) CFU/ML Susceptibility testing of penicillins and other B-lactams approved by FDA for treatment of Streptococcus pyogenes (Group A Strep) and Streptococcus agalactiae (Group B Strep) is not necessary for clinical purposes and need not be done routinely, since as with vancomycin, resistant strains have not been recognized. (CLSI B881-W42;p.66) Positive isolates will be saved for one week. Please call the Microbiology Laboratory if further susceptibility testing is needed. * ML - Main Lab . END OF REPORT DEPARTMENT OF PATHOLOGY, [address] [place] [address] Toño Lambert M.D. Director [facility] # [id number] 14 SEE RESULT BELOW Name: PUSHPA PITTS Peter : [address]: Quyen Montero MD Acct: [id number] Unit: [id number] AGE: 58 Location: [facility] Re12/09/18 SEX: F Status: REG REF SPEC: [id number] HO: 12/09/[address] [facility] [address]: Quyen Montero MD REQ: [id number] RECD: 12/09/18 STATUS: ELIZABETH WESTON DR: David Mobley BOAT CARPENTER _ ORDERED: TP IMAGE ANALYS, HPV/Thin Prep COMMENTS: [id number] FINAL DIAGNOSIS Negative for Intraepithelial lesion or [...] CONTINUED ON NEXT PAGE DEPARTMENT OF PATHOLOGY, [address] [place] [address] Toño Lambert M.D. Director [facility] # [id number] CYTOLOGY PATIENT INFORMATION Patient Information: HPV: High risk HPV RNA testing regardless of pap results. Actual Specimen Date: 12/09/18 Last Menstrual Date: 09/11/15 Date of Last Specimen: 12/04/17 Post Menopausal?: Y Signed by and Reported on: MARIAMA Terrazas(ASCP) [id number] This Pap test was evaluated with the assistance of the [employer] Education[employer] Test Imaging System. Due to cytologic findings at the audio visual equipment rental clerk microscope, comprehensive manual rescreening by a Open Hearth Laborer may be required. The Pap Smear is [...] years. END OF REPORT DEPARTMENT OF PATHOLOGY, [address] [place] [address] Toño Lambert M.D. Director [facility] # [id number] 15 Normal Range 180 to 914 Indeterminate Range 145 to 180 Deficient Range <145 16 Therapeutic target for the treatment of diabetes mellitus patients is <7% HBA1C, and in selective patients <6.0%. Please refer to [place] [employer] diabetic care guidelines for further information. 17 FASTING 10 HOUR Procedures Date Code Description Status 05/01/2019 57952 EKG Tracing & Interpretation Completed 04/29/2019 84580 ECHO Transthoracic, Real-Time 2D With Doppler And Color Completed Flow 04/29/2019 15985 ECHO Transthoracic, Real-Time 2D With Doppler And Color Completed Flow 03/27/2019 14105 EKG Tracing & Interpretation Completed 03/10/2019 65805 EKG Tracing & Interpretation Completed 01/23/2019 59650 Diffusing Capacity Completed 01/23/2019 58514 Plethysmography Determination Lung Volumes & Per Airway Completed Resist 01/23/2019 18099 Pulmonary Function><Bronchodil Completed 01/13/2019 [id number] Mammogram Completed 02/19/2018 38937381 Mammogram Completed 01/09/2017 82470623 Mammogram Completed 01/10/2016 [id number] Mammogram Completed Medical Devices Description No Information Available Encounters Type Date Location Provider Dx Diagnosis Office Visit 04/22/2019 [place] [facility] Christopher Emre, H81.13 Benign paroxysmal 12:15p Services Of Christopher Stanley vertigo, bilateral R00.2 Palpitations H53.8 Other visual disturbances R20.2 Paresthesia of skin R56.9 Unspecified convulsions R53.83 Other fatigue Office Visit 03/27/2019 9:00a [place] [facility] Forrest Myers R06.00 Dyspnea, Of Christopher Meyer M.D. unspecified I42.9 Cardiomyopathy, unspecified I34.0 Nonrheumatic mitral (valve) insufficiency R60.0 Localized edema H81.13 Benign paroxysmal vertigo, bilateral R00.2 Palpitations Office Visit 03/10/2019 [place] Yael Galeas I42.9 Cardiomyopathy, 2:30p Cardiology Deejay, N.PHoa unspecified I34.0 Nonrheumatic mitral (valve) insufficiency R60.0 Localized edema R06.00 Dyspnea, unspecified Office Visit 02/06/2019 10:00a [facility] Internal David Itz, H81.13 Benign paroxysmal Medicine - [facility] [employer]AT CARPENTER vertigo, bilateral H53.8 Other visual disturbances Office Visit 01/29/2019 Pul[facility] And Anh J45.909 Unspecified asthma , 10:45a Sleep Services Of MD Janay uncomplicated [facility] J98.4 Other disorders of lung G47.33 Obstructive sleep apnea (adult) (pediatric) Office Visit 12/25/2018 8:20a Rheumatology Manny M70.70 Other bursitis of Services Of Christopher Pickett M.D. hip, unspecified hip M54.2 Cervicalgia R20.2 Paresthesia of skin Office Visit 12/20/2018 3:40p [facility] Internal David Itz, BOAT CARPENTER R10.11 Right upper Medicine - [facility] quadrant pain R10.32 Left lower quadrant pain R33.8 Other retention of urine R10.812 Left upper quadrant abdominal tenderness M54.32 Sciatica, left side Office Visit 12/04/2018 2:40p [facility] Internal Earlene Sanderson, M54.2 Cervicalgia Medicine - [facility] Lizeth H81.13 Benign paroxysmal vertigo, bilateral R20.2 Paresthesia of skin I10 Essential (primary) hypertension Z11.59 Encounter for screening for other viral diseases Assessments Date Code Description Provider 05/02/2019 M47.892 Other spondylosis, cervical region Vassilios MD Thad 05/01/2019 H81.13 Benign paroxysmal vertigo, bilateral Forrest Meyer M.D. 05/01/2019 I10 Essential (primary) hypertension Forerst Meyer M.D. 05/01/2019 I42.9 Cardiomyopathy, unspecified Forrest [...] H81.13 Benign paroxysmal vertigo, bilateral David Itz, BOAT CARPENTER 02/06/2019 H53.8 Other visual disturbances David Itz, BOAT CARPENTER 01/29/2019 J45.909 Unspecified asthma, uncomplicated Anh Gustafson [...] R10.11 Right upper quadrant pain David Itz, BOAT CARPENTER 12/20/2018 R10.32 Left lower quadrant pain David Itz, BOAT CARPENTER 12/20/2018 R33.8 Other retention of urine David Itz, BOAT CARPENTER 12/20/2018 R10.812 Left upper quadrant abdominal tenderness David Itz, BOAT CARPENTER 12/20/2018 M54.32 Sciatica, left side David Itz, BOAT CARPENTER 12/17/2018 I10 Essential (primary) hypertension Nurse Visit [...] Diamond Oneil MD at Neurosurgery Services Of [facility]08/01/2019 10:15 am - Donald Andrea M.D. at [place] [facility]02/09/2020 2:30 pm - Merced Beltre NP at Pul[facility]ology [facility]10/27/2019 3:00 pm - Manny Pickett M.D. at Rheumatology Services Of [facility]05/02/2019 - Diamond Oneil, MDM47.892 Other spondylosis, cervical regionNew Orders:EMG w/Nerve Conduct Study , Upper, Ordered: 05/02/19Follow up:RV in 3 months Functional Status Description No Information Available Mental Status Description No Information Available Referrals Refer to Reason for Referral Status Appt Date Manny Richards M.D. Resent referral to [facility] Sent Scheduling 03/14/19- they will call pt to schedule. FP Pt not scheduled yet 04/17/19 [address] [place] [address] [phone] Diamond Oneil MD Sent 02/04/2019 [facility] [address] [place] [place] [address] [phone] [facility] Residents Received Complete [address] [facility] [address] [place] [address] [phone]
--- OUTSIDE RECORDS SUMMARY | 2019-05-27 15:02 | XMS REPORT | Continuity of Care Document ---
:1960 External Reference #:[id number] Author Name Donald Andrea M.D. (transmitted by agent of provider Betito Villeda) Address [address] [facility], [place] [address] Care Team Providers Name Role Phone Cindi Quinteros FNP - Family Care Team Information Forest Aide [phone] Julian Sanders MD - Cardiovascular Care Team Information [facility] Aide Disease David Mobley NP - Internal Medicine Care Team Information [facility] Aide Problems Active Problems Provider Date Rheumatic mitral [...] of breast David Mobley NP Onset: 03/12/2018 Palpitations Donald Andrea M.D. Onset: 04/22/2019 Myalgia, other site Donald Andrea M.D. Onset: 02/25/2019 Malaise and fatigue Donald Andrea M.D. Onset: 02/25/2019 Left side sciatica Donald Andrea M.D. Onset: 02/25/2019 Skin sensation disturbance Donald Andrea M.D. Onset: 02/25/2019 Neck pain Donald Andrea M.D. Onset: 02/25/2019 Visual disturbance Donald Andrea M.D. Onset: 02/25/2019 Benign paroxysmal positional vertigo Donald Andrea M.D. Onset: 02/25/2019 Social History Type Date Description Comments Sex [...] Tablets Fluticasone as needed Unknown Propionate Nasal Brule 24- Hour 50mcg/Act Suspension History Medications Torsemide [...] Code Status Date Vaccine Reaction Lot # 82683 Given 11/09/2017 Influenza Virus Vaccine, Quadrivalent, Split, Preservative Free [id number] Given 11/24/2016 Zoster (Zostavax) No immediate [id number] reaction.. 96066 Given 11/18/2014 Influenza Virus 3Yrs & Over [...] Result H/L Range Note Basic Metabolic 03/27/2019 [facility] Sodium 138 mmol/L Normal 135-[address] [place], [place] [id number] [phone] Potassium 4.6 mmol/L Normal 3.5-5.0 Chloride 102 mmol/L Normal 101-111 Co2 Carbon Dioxide 30 mmol/L Normal 22-32 Anion Gap 6 mmol/L Normal 2-11 Glucose 76 mg/dL Normal 70-100 Blood Urea Nitrogen 18 mg/dL Normal 6-24 Creatinine 0.85 mg/dL Normal 0.51-0.95 BUN/Creatinine Ratio 21.2 High 8-20 Calcium 9.7 mg/dL Normal 8.6-10.3 Egfr Non- 68.5 >60 Egfr 82.8 >60 1 Laboratory test 03/27/2019 [facility] C Reactive 7.83 mg/L Normal <8.01 finding [address] [facility] [place] [address] [phone] Erythrocyte Sed Rate 38 mm/Hr High 0-29 Iron & Iron Binding 03/27/2019 [facility] Iron 104 g/dL Normal 50-212 [address] [place] [address] [phone] Unsaturated Iron Binding < 443 g/dL Total Iron Binding Capacity 458 g/dL High 250-450 Transferrin 327 mg/dL Normal 203-362 % Iron Saturation 23 % Normal 15-55 Laboratory test 03/27/2019 [facility] Magnesium 2.2 mg/dL Normal 1.9-2.7 finding [address] [place] [address] [phone] B-Type Natriuretic Peptide BNP 19 pg/mL <=100 Ammonia 44 mcmol/L Normal 16-53 Basic Metabolic 03/20/2019 [facility] Sodium 140 mmol/L Normal 135-145 Panel [address] [place] [address] [phone] Potassium 4.4 mmol/L Normal 3.5-5.0 Chloride 104 mmol/L Normal 101-111 Co2 Carbon Dioxide 30 mmol/L Normal 22-32 Anion Gap 6 mmol/L Normal 2-11 Glucose 81 mg/dL Normal 70-100 Blood Urea Nitrogen 16 mg/dL Normal 6-24 Creatinine 1.15 mg/dL High 0.51-0.95 BUN/Creatinine Ratio 13.9 Normal 8-20 Calcium 9.6 mg/dL Normal 8.6-10.3 Egfr Non- 48.3 >60 Egfr 58.4 >60 2 CBC Auto 03/13/2019 [facility] White Blood 6.7 10^3/uL Normal 3.5-10.[address] [place] [address] [phone] Red Blood Count 3.77 10^6/uL Normal 3.70-4.87 [...] Red Blood Cells % 0.1 Laboratory 03/13/2019 [facility] TSH (Thyroid 3.02 Normal 0.34 -5.[address] Stim Horm) mcIU/mL [place], [place] [id number] [phone] Vitamin B12 334 pg/mL Normal 180-914 3 Ferritin 88.1 ng/mL Normal 11-307 Comp Metabolic 03/13/2019 [facility] Sodium 140 mmol/L Normal 135-[address] [place] [address] [phone] Potassium 4.5 mmol/L Normal 3.5-5.0 Chloride 103 [...] Non- 73.4 >60 Egfr 88.8 >60 4 Urine Culture And 01/29/2019 [facility] Urine SEE RESULT 5 , [address] [place] [address] [phone] Poc Urinalysis 01/29/2019 [facility] Poc NEGATIVE Negative [address] Glucose, [place] [address] Urine [phone] Poc Bilirubin, Urine NEGATIVE Negative Poc Ketone, Urine NEGATIVE Negative Poc Specific [place], Urine 1.015 Normal 1.010-1.030 Poc Blood, Urine TRACE-LYSED Negative 7 Poc pH, Urine 7.0 Normal 5-9 Poc Protein, Urine NEGATIVE Negative Poc Urobilinogen, Urine 0.2 Negative Poc Nitrite, Urine NEGATIVE Negative Poc Leukocytes, Urine TRACE Negative Poc Color, Urine YELLOW Poc Clarity, Urine CLEAR Laboratory test 01/02/2019 [facility] Rubella Screen Immune Immune finding [address] [place] [address] [phone] Mumps Igg 01/02/2019 [facility] Mumps Virus IgG Positive [address] [place] [address] [phone] Mumps IgG Antibody Index 3.4 9 Rubeola Measles 01/02/2019 [facility] Rubeola (Measles) Positive 10 Igg AB [address] [place] [address] [phone] Rubeola IgG Antibody Index 6.3 11 Urine Culture And 12/20/2018 [facility] Urine Culture SEE RESULT [address] [place] [address] [phone] Urinalysis Profile 12/20/2018 [facility] Urine Color Yellow [address] [place] [address] [phone] Urine Appearance Clear Urine Specific [place] 1.013 Normal 1.010-1.030 Urine pH 5.0 Normal [...] Urine Squamous Epithelial Cell Present Abnormal Absent Laboratory test 12/20/2018 [facility] Lipase 37 U/L Normal 11.0-82.[address] [place] [address] [phone] Comp Metabolic 12/20/2018 [facility] Sodium 139 mmol/L Normal 135-[address] [place] [address] [phone] Potassium 5.0 mmol/L Normal 3.5-5.0 Chloride 103 [...] Egfr Non- 57.4 >60 Egfr 69.5 >60 13 CBC Auto 12/20/2018 [facility] White Blood 7.6 10^3/uL Normal 3.5-10.[address] [place] [address] [phone] Red Blood Count 4.00 10^6/uL Normal 3.70-4.87 [...] % Nucleated Red Blood Cells % 0.0 Cytology 12/09/2018 [facility] Cytology SEE RESULT BELOW [address] [place] [address] [phone] PDFReport [id number] <SEE NOTE> Laboratory test 12/09/2018 [facility] Vitamin B12 361 pg/mL Normal 180-914 15 finding [address] [place] [address] [phone] Hemoglobin A1c (Glyco HGB) 5.4 % Normal 4.0-5.6 16 Glucose 100 mg/dL Normal 70-100 17 Hepatitis C Antibody 12/09/2018 [facility] HCV Index 0.01 s/c [address] [place] [address] [phone] Hepatitis C Antibody Negative Negative 1 Because [...] 5 Kidney failure <15 (or dialysis) 5 [id number] 6 SEE RESULT BELOW Name: [place] : [address]: Sita Mendoza MD Acct: [id number] Unit: [id number] AGE: 58 Location: [facility] Re01/29/19 SEX: F Status: DEP ER SPEC: [id number] HO: 01/29/19-[address] [facility] [address]: Sita Mendoza MD REQ: [id number] RECD: 01/29/19155 STATUS: KEVIN WESTON DR: [facility] David Mobley [employer]ICE [employer] _ SOURCE: URINE SPDESC: ORDERED: Urine Culture COMMENTS: [id number] Procedure Result Reported Site Urine Culture Final 01/30/19- 1507 ML Organism 1 STREP GROUP B [place] Count 10-25,000 (Moderate) CFU/ML Susceptibility testing of penicillins and other B-lactams approved by FDA for treatment of Streptococcus pyogenes (Group A Strep) and Streptococcus agalactiae (Group B Strep) is not necessary for clinical purposes and need not be done routinely, since as with vancomycin, resistant strains have not been recognized. (CLSI R201-V79;p.66) Positive isolates will be saved for one week. Please call the Microbiology Laboratory if further susceptibility testing is needed. * - Main Lab . END OF REPORT DEPARTMENT OF PATHOLOGY, [address] [place] [address] Toño Lambert M.D. Director [facility] # [id number] Claims Analyst: [id number] Results suggest response to immunization or prior exposure to the virus. REFERENCE VALUE Vaccinated: Positive (>=1.1 AI) Unvaccinated: Negative (<=0.8 AI) 9 Test Performed by: [place] [address] Licensed Mortgage Loan Officer: Alex Olsen M.D. Ph.D.; CLIA# [id number] 10 Results suggest response to immunization or prior exposure to the virus. REFERENCE VALUE Vaccinated: Positive (>=1.1 AI) Unvaccinated: Negative (<=0.8 AI) 11 Test Performed by: [place] [address] Licensed Mortgage Loan Officer: Alex Olsen M.D. Ph.D.; CLIA# [id number] 12 SEE RESULT BELOW Name: [place] : [address]: David Mobley NP Acct: [id number] Unit: [id number] AGE: 58 Location: [facility] Re12/20/18 SEX: F Status: REG REF SPEC: [id number] HO: 12/20/[address]: David Mobley NP REQ: [id number] RECD: 12/20/18 STATUS:COMP _ SOURCE: URINE SPDESC: ORDERED: Urine Culture Procedure Result Reported Site Urine Culture Final 12/21/18- 1709 ML Organism 1 STREP GROUP B [place] Count 50-75,000 (Many) CFU/ML Susceptibility testing of penicillins and other B-lactams approved by FDA for treatment of Streptococcus pyogenes (Group A Strep) and Streptococcus agalactiae (Group B Strep) is not necessary for clinical purposes and need not be done routinely, since as with vancomycin, resistant strains have not been recognized. (CLSI D475-S61;p.66) Positive isolates will be saved for one week. Please call the Microbiology Laboratory if further susceptibility testing is needed. * - [facility] . END OF REPORT DEPARTMENT OF PATHOLOGY, [address] [place] [address] Toño Lambert M.D. Director [facility] # [id number] 13 Because ethnic data is not always readily [...] 15-29 5 Kidney failure <15 (or dialysis) 14 SEE RESULT BELOW Name: [place] : [address]: Quyen Montero MD Acct: [id number] Unit: [id number] AGE: 58 Location: [facility] Re12/09/18 SEX: F Status: REG REF SPEC: [id number] HO: 12/09/180845 [facility] DR: Quyen Montero MD REQ: [id number] RECD: 12/09/18 STATUS: ELIZABETH WEST[facility] DR: David Mobley [employer]ICE [employer] _ ORDERED: TP IMAGE ANALYS, HPV/Thin Prep COMMENTS: [id number] FINAL DIAGNOSIS Negative for Intraepithelial lesion or [...] CONTINUED ON NEXT PAGE DEPARTMENT OF PATHOLOGY, [address] [place] [address] Toño Lambert M.D. Director [facility] # [id number] CYTOLOGY PATIENT INFORMATION Patient Information: HPV: High risk HPV RNA testing regardless of pap results. Actual Specimen Date: 12/09/18 Last Menstrual Date: 10/23/14 Date of Last Specimen: 12/04/17 Post Menopausal?: Y Signed by and Reported on: MARIAMA Terrazas(ASCP) [id number] This Pap test was evaluated with the assistance of the SionexPrep Test Imaging System. Due to cytologic findings at the building maintenance custodian microscope, comprehensive manual rescreening by a Chief [employer] may be required. The Pap Smear is [...] years. END OF REPORT DEPARTMENT OF PATHOLOGY, [address] [place] [address] Toño Lambert M.D. Director [facility] # [id number] 15 Normal Range 180 to 914 Indeterminate Range 145 to 180 Deficient Range <145 16 Therapeutic target for the treatment of diabetes mellitus patients is <7% HBA1C, and in selective patients <6.0%. Please refer to [place] [employer] diabetic care guidelines for further information. 17 FASTING 10 HOUR Procedures Date Code Description Status 03/27/2019 82729 EKG Tracing & Interpretation Completed 03/10/2019 46582 EKG Tracing & Interpretation Completed 01/23/2019 46114 Diffusing Capacity Completed 01/23/2019 01480 Plethysmography Determination Lung Volumes & Per Airway Completed Resist 01/23/2019 86788 Pulmonary Function><Bronchodil Completed 01/13/2019 [id number] Mammogram Completed 02/19/2018 [id number] Mammogram Completed 01/09/2017 61838054 Mammogram Completed 01/10/2016 36086524 Mammogram Completed Medical Devices Description No Information Available Encounters Type Date Location Provider Dx Diagnosis Office Visit 04/22/2019 [facility] Donald Andrea, H81.13 Benign paroxysmal 12:15p Services Of Christopher Stanley vertigo, bilateral R00.2 Palpitations H53.8 Other visual disturbances R20.2 Paresthesia of skin Office Visit 03/27/2019 9:00a [facility] Forrest Myers R06.00 Dyspnea, Of [facility] Lizeth Meyer unspecified I42.9 Cardiomyopathy, unspecified I34.0 Nonrheumatic mitral (valve) insufficiency R60.0 Localized edema H81.13 Benign paroxysmal vertigo, bilateral R00.2 Palpitations Office Visit 03/10/2019 Isaac Galeas I42.9 Cardiomyopathy, 2:30p Cardiology Deejay N.PHoa unspecified I34.0 Nonrheumatic mitral (valve) insufficiency R60.0 Localized edema R06.00 Dyspnea, unspecified Office Visit 02/06/2019 10:00a [facility] Internal David Mobley H81.13 [facility] [employer] [employer] vertigo, bilateral H53.8 Other visual disturbances Office Visit 01/29/2019 Pulmonology And Anh J45.909 Unspecified asthma , 10:45a Sleep Services Of MD Janay uncomplicated [facility] J98.4 Other disorders of lung G47.33 Obstructive sleep apnea (adult) (pediatric) Office Visit 12/25/2018 8:20a Rheumatology Manny M70.70 Other bursitis of Services Of [facility] Pickett M.D. hip, unspecified hip M54.2 Cervicalgia R20.2 Paresthesia of skin Office Visit 12/20/2018 3:40p [facility] Internal David Mobley [employer]ICE [employer] R10.11 Right upper Medicine - [facility] quadrant pain R10.32 Left lower quadrant pain R33.8 Other retention of urine R10.812 Left upper quadrant abdominal tenderness M54.32 Sciatica, left side Office Visit 12/04/2018 2:40p [facility] Internal Earlene Kin, M54.2 [facility]ervicalgia [facility] H81.13 Benign paroxysmal vertigo, bilateral R20.2 Paresthesia of skin I10 Essential (primary) hypertension Z11.59 Encounter for screening for other viral diseases Assessments Date Code Description Provider 04/22/2019 H81.13 Benign paroxysmal vertigo, bilateral Donald Andrea M.D. 04/22/2019 R00.2 Palpitations Donald Andrea M.D. 04/22/2019 H53.8 Other visual disturbances Donald Andrea M.D. 04/22/2019 R20.2 Paresthesia of skin Donald Andrea M.D. 03/27/2019 R06.00 Dyspnea, unspecified [...] H81.13 Benign paroxysmal vertigo, bilateral David Itz, [employer] 02/06/2019 H53.8 Other visual disturbances David Mobley NP 01/29/2019 J45.909 Unspecified asthma, uncomplicated Anh Janay, MD 01/29/2019 J98.4 Other disorders of lung Anh Gustafson MD 01/29/2019 G47.33 Obstructive sleep apnea (adult) Anh Gustafson MD (pediatric) 01/23/2019 J45.909 Unspecified asthma, uncomplicated Anh Gustafson MD 12/25/2018 M70.70 Other bursitis of hip, unspecified hip Manny Pickett M.D. 12/25/2018 M54.2 Cervicalgia Manny Pickett M.D. 12/25/2018 R20.2 Paresthesia of skin Manny Pickett M.D. 12/20/2018 R10.11 Right upper quadrant pain David Itz, [employer] 12/20/2018 R10.32 Left lower quadrant pain David Itz, [employer] 12/20/2018 R33.8 Other retention of urine David Itz, [employer] 12/20/2018 R10.812 Left upper quadrant abdominal tenderness David Itz, [employer] 12/20/2018 M54.32 Sciatica, left side David Itz, [employer] 12/17/2018 I10 Essential (primary) hypertension Nurse Visit A 12/04/2018 M54.2 Cervicalgia Earlene Sanderson M.D. 12/04/2018 H81.13 Benign paroxysmal vertigo, bilateral Earlene Sanderson M.D. 12/04/2018 R20.2 Paresthesia of skin Earlene Sanderson M.D. 12/04/2018 I10 Essential (primary) hypertension Earlene Sanderson M.D. 12/04/2018 Z11.59 Encounter for screening for other viral Earlene Sanderson M.D. diseases Plan of Treatment Future Appointment(s):04/29/2019 3:00 pm - Traveling ECHO 1 at [facility]02/09/2020 2:30 pm - Merced Beltre NP at [facility]ology [facility]05/01/2019 3:00 pm - Forrest Meyer M.D. at [facility]05/12/2019 2:00 pm - Diamond Oneil MD at Neurosurgery [facility]10/27/2019 3:00 pm - Manny Pickett M.D. at Rheumatology [facility]04/22/2019 - Donald Andrea M.D.H81.13 Benign paroxysmal vertigo, bilateralFollow up:Follow up in 12 weeksRecommendations: Call me 1 week to make sure I have the records Call me 1 week after the EEG to review the uuhtgotA48.2 QfbrvylwxvtmD35.8 Other visual gsosdlpcpetzW48.2 Paresthesia of skin Functional Status Description No Information Available Mental Status Description No Information Available Referrals Refer to Dr Reason for Referral Status Appt Date Manny Richards M.D. Resent referral to [facility] Sent Scheduling 03/14/19- they will call pt to schedule. FP Pt not scheduled yet 04/17/19 [address] [place] [address] [phone] Diamond Oneil MD Sent 02/04/2019 [address] [place] [address] [phone] [facility] - Residents Received Complete [address] [facility] [address] [facility] Ambulatory Center [address] [place] [address] [phone] Donald Andrea M.D. Sent 03/27/2019 [address] [place] [address] [place] [address] [phone]
--- OUTSIDE RECORDS SUMMARY | 2019-05-27 15:02 | XMS REPORT | Continuity of Care Document ---
:1960 External Reference #:[id number] Author Name Forrest Meyer M.D. (transmitted by agent of provider Veena Rodriguez) Address [address] [place] [id number] Care Team Providers Name Role Phone Cindi Quinteros FNP - Family Care Team Information Collection Systems Modeler [phone] Julian Sanders MD - Cardiovascular Care Team Information Collection Systems Modeler Disease David Mobley NP - Internal Medicine Care Team Information Collection Systems Modeler Problems Active Problems Provider Date Rheumatic mitral [...] Tablets Fluticasone as needed Unknown Propionate Nasal [place] 24- Hour 50mcg/Act Suspension History Medications Lasix [...] Code Status Date Vaccine Reaction Lot # [id number] Given 11/09/2017 Influenza Virus Vaccine, Quadrivalent, Split, Preservative Free 82949 Given 11/24/2016 Zoster (Zostavax) No immediate [id number] reaction.. 64617 Given 11/18/2014 Influenza Virus 3Yrs & Over [...] Result H/L Range Note Basic Metabolic 03/27/2019 [facility] Sodium 138 mmol/L Normal 135-[address] [place] [phone] Potassium 4.6 mmol/L Normal 3.5-5.0 Chloride 102 mmol/L Normal 101-111 Co2 Carbon Dioxide 30 mmol/L Normal 22-32 Anion Gap 6 mmol/L Normal 2-11 Glucose 76 mg/dL Normal 70-100 Blood Urea Nitrogen 18 mg/dL Normal 6-24 Creatinine 0.85 mg/dL Normal 0.51-0.95 BUN/Creatinine Ratio 21.2 High 8-20 Calcium 9.7 mg/dL Normal 8.6-10.3 Egfr Non- 68.5 >60 Egfr 82.8 >60 1 Laboratory test 03/27/2019 [facility] C Reactive 7.83 mg/L Normal <8.[address] [place] [address] [place] [address] [phone] Erythrocyte Sed Rate 38 mm/Hr High 0-29 Iron & Iron Binding 03/27/2019 [facility] Iron 104 g/dL Normal 50-[address] [place] [address] [phone] Unsaturated Iron Binding < 443 g/dL Total Iron Binding Capacity 458 g/dL High 250-450 Transferrin 327 mg/dL Normal 203-362 % Iron Saturation 23 % Normal 15-55 Laboratory test 03/27/2019 [facility] Magnesium 2.2 mg/dL Normal 1.9-2.[address] [place] [phone] B-Type Natriuretic Peptide BNP 19 pg/mL <=100 Ammonia 44 mcmol/L Normal 16-53 Basic Metabolic 03/20/2019 [facility] Sodium 140 mmol/L Normal 135-[address] [place] [address] [phone] Potassium 4.4 mmol/L Normal 3.5-5.0 Chloride 104 mmol/L Normal 101-111 Co2 Carbon Dioxide 30 mmol/L Normal 22-32 Anion Gap 6 mmol/L Normal 2-11 Glucose 81 mg/dL Normal 70-100 Blood Urea Nitrogen 16 mg/dL Normal 6-24 Creatinine 1.15 mg/dL High 0.51-0.95 BUN/Creatinine Ratio 13.9 Normal 8-20 Calcium 9.6 mg/dL Normal 8.6-10.3 Egfr Non- 48.3 >60 Egfr 58.4 >60 2 CBC Auto 03/13/2019 [facility] White Blood 6.7 10^3/uL Normal 3.5-10.[address] [place] [address] [phone] Red Blood Count 3.77 10^6/uL Normal 3.70-4.87 [...] Red Blood Cells % 0.1 Laboratory 03/13/2019 [facility] TSH (Thyroid 3.02 Normal 0.34 -5.60 test finding [address] Stim Horm) mcIU/[place] [address] [phone] Vitamin B12 334 pg/mL Normal 180-914 3 Ferritin 88.1 ng/mL Normal 11-307 Comp Metabolic 03/13/2019 [facility] Sodium 140 mmol/L Normal 135-[address] [place] [address] [phone] Potassium 4.5 mmol/L Normal 3.5-5.0 Chloride 103 [...] Egfr 88.8 >60 4 Poc Urinalysis 01/29/2019 [facility] Poc Glucose, NEGATIVE Negative [address] [place] [address] [phone] Poc Bilirubin, Urine NEGATIVE Negative Poc Ketone, Urine NEGATIVE Negative Poc Specific [place], Urine 1.015 Normal 1.010-1.030 Poc Blood, Urine TRACE-LYSED Negative 5 Poc pH, Urine 7.0 Normal 5-9 Poc Protein, Urine NEGATIVE Negative Poc Urobilinogen, Urine 0.2 Negative Poc Nitrite, Urine NEGATIVE Negative Poc Leukocytes, Urine TRACE Negative Poc Color, Urine YELLOW Poc Clarity, Urine CLEAR Urine Culture And 01/29/2019 [facility] Urine Culture SEE RESULT 6, [address] [place] [address] [phone] Mumps Igg 01/02/2019 [facility] Mumps Virus Positive [address] [place] [address] [phone] Mumps IgG Antibody Index 3.4 9 Rubeola Measles 01/02/2019 [facility] Rubeola (Measles) Positive 10 Igg AB [address] [place] [address] [phone] Rubeola IgG Antibody Index 6.3 11 Laboratory test 01/02/2019 [facility] Rubella Immune Immune finding [address] [place] [address] [phone] CBC Auto Diff 12/20/2018 [facility] White Blood 7.6 Normal 3.5 -10.[address] Count 10^3/[place] [address] [phone] Red Blood Count 4.00 10^6/uL Normal 3.70-4.87 [...] Blood Cells % 0.0 Comp Metabolic 12/20/2018 [facility] Sodium 139 mmol/L Normal 135-[address] [place] [address] [phone] Potassium 5.0 mmol/L Normal 3.5-5.0 Chloride 103 [...] Egfr 69.5 >60 12 Laboratory test 12/20/2018 [facility] Lipase 37 U/L Normal 11.0-82.0 finding [address] [place] [address] [phone] Urinalysis 12/20/2018 [facility] Urine Color Yellow Profile [address] [place] [address] [phone] Urine Appearance Clear Urine Specific [place] 1.013 Normal 1.010-1.030 Urine pH 5.0 Normal [...] Present Abnormal Absent Urine Culture And 12/20/2018 [facility] Urine Culture SEE RESULT [address] [place] [address] [phone] Cytology 12/09/2018 [facility] Cytology SEE RESULT [address] [place] [address] [phone] PDFReport [id number] <SEE NOTE> Laboratory test 12/09/2018 [facility] Vitamin B12 361 pg/mL Normal 180-914 15 finding [address] [place] [address] [phone] Hemoglobin A1c (Glyco HGB) 5.4 % Normal 4.0-5.6 16 Glucose 100 mg/dL Normal 70-100 17 Hepatitis C Antibody 12/09/2018 [facility] HCV Index 0.01 s/c [address] [place] [address] [phone] Hepatitis C Antibody Negative Negative 1 Because [...] 5 Kidney failure <15 (or dialysis) 5 Dog Groomer: [id number] 7 SEE RESULT BELOW Name: [place] P[place]TS : [address]: Sita Mendoza MD Acct: [id number] Unit: [id number] AGE: 58 Location: [facility] Re01/29/19 SEX: F Status: DEP ER SPEC: [id number] HO: 01/29/19-[address] [facility] [address]: Sita Mendoza MD REQ: [id number] RECD: 01/29/19 STATUS: KEVIN WESTON DR: Isaac [facility]icians David Mobley SEMICONDUCTOR TECHNICIAN _ SOURCE: URINE SPDESC: ORDERED: Urine Culture COMMENTS: [id number] Procedure Result Reported Site Urine Culture Final 01/30/19- 1507 ML Organism 1 STREP GROUP B [place] Count 10-25,000 (Moderate) CFU/ML Susceptibility testing of penicillins and other B-lactams approved by FDA for treatment of Streptococcus pyogenes (Group A Strep) and Streptococcus agalactiae (Group B Strep) is not necessary for clinical purposes and need not be done routinely, since as with vancomycin, resistant strains have not been recognized. (CLSI M455-I70;p.66) Positive isolates will be saved for one week. Please call the Microbiology Laboratory if further susceptibility testing is needed. * - [facility] . END OF REPORT DEPARTMENT OF PATHOLOGY, [address] [place] [address] Toño Lambert M.D. Director [facility] # [id number] 8 Results suggest response to immunization or prior exposure to the virus. REFERENCE VALUE Vaccinated: Positive (>=1.1 AI) Unvaccinated: Negative (<=0.8 AI) 9 Test Performed by: [place] [address] Group Leader Wafer Polishing: Alex Olsen M.D. Ph.D.; CLIA# [id number] 10 Results suggest response to immunization or prior exposure to the virus. REFERENCE VALUE Vaccinated: Positive (>=1.1 AI) Unvaccinated: Negative (<=0.8 AI) 11 Test Performed by: [place] [address] Group Leader Wafer Polishing: Alex Olsen M.D. Ph.D.; CLIA# [id number] 12 Because ethnic data is not always [...] [address]: David Mobley NP Acct: [id number] Unit: [id number] AGE: 58 Location: [facility] Re12/20/18 SEX: F Status: REG REF SPEC: [id number] HO: 12/20/[address]: David Mobley NP REQ: [id number] RECD: 12/20/18 STATUS:COMP _ SOURCE: URINE SPDESC: ORDERED: Urine Culture Procedure Result Reported Site Urine Culture Final 12/21/18- 1709 ML Organism 1 STREP GROUP B [place] Count 50-75,000 (Many) CFU/ML Susceptibility testing of penicillins and other B-lactams approved by FDA for treatment of Streptococcus pyogenes (Group A Strep) and Streptococcus agalactiae (Group B Strep) is not necessary for clinical purposes and need not be done routinely, since as with vancomycin, resistant strains have not been recognized. (CLSI Z048-B65;p.66) Positive isolates will be saved for one week. Please call the Microbiology Laboratory if further susceptibility testing is needed. * [facility] - Main Lab . END OF REPORT DEPARTMENT OF PATHOLOGY, [address] [place] [address] Toño Lambert M.D. Director [facility] # [id number] 14 SEE RESULT BELOW Name: [place] P[place]TS : [address]: Quyen Montero MD Acct: [id number] Unit: [id number] AGE: 58 Location: [facility] Re12/09/18 SEX: F Status: REG REF SPEC: [id number] HO: 12/09/[address] [facility] [address]: Quyen Montero MD REQ: [id number] RECD: 12/09/18 STATUS: ELIZABETH WESTON DR: David Mobley SEMICONDUCTOR TECHNICIAN _ ORDERED: TP IMAGE ANALYS, HPV/Thin Prep COMMENTS: [id number] FINAL DIAGNOSIS Negative for Intraepithelial lesion or [...] CONTINUED ON NEXT PAGE DEPARTMENT OF PATHOLOGY, [address] [place] [address] Toño Lambert M.D. Director [facility] # [id number] CYTOLOGY PATIENT INFORMATION Patient Information: HPV: High risk HPV RNA testing regardless of pap results. Actual Specimen Date: 12/09/18 Last Menstrual Date: 10/23/14 Date of Last Specimen: 12/04/17 Post Menopausal?: Y Signed by and Reported on: MARIAMA Terrazas(ASCP) 1354 This Pap test was evaluated with the assistance of the WatsiPrep Test Imaging System. Due to cytologic findings at the pit operator microscope, comprehensive manual rescreening by a Show Horse Driver may be required. The Pap Smear is [...] years. END OF REPORT DEPARTMENT OF PATHOLOGY, [address] [place] [address] Toño Lambert M.D. Director [facility] # [id number] 15 Normal Range 180 to 914 Indeterminate Range 145 to 180 Deficient Range <145 16 Therapeutic target for the treatment of diabetes mellitus patients is <7% HBA1C, and in selective patients <6.0%. Please refer to [place] [employer] diabetic care guidelines for further information. 17 FASTING 10 HOUR Procedures Date Code Description Status 05/01/2019 51469 EKG Tracing & Interpretation Completed 04/29/2019 61185 ECHO Transthoracic, Real-Time 2D With Doppler And Color Completed Flow 04/29/2019 79756 ECHO Transthoracic, Real-Time 2D With Doppler And Color Completed Flow 03/27/2019 00593 EKG Tracing & Interpretation Completed 03/10/2019 74073 EKG Tracing & Interpretation Completed 01/23/2019 80387 Diffusing Capacity Completed 01/23/2019 65920 Plethysmography Determination Lung Volumes & Per Airway Completed Resist 01/23/2019 46718 Pulmonary Function><Bronchodil Completed 01/13/2019 [id number] Mammogram Completed 02/19/2018 59116185 Mammogram Completed 01/09/2017 96908370 Mammogram Completed 01/10/2016 49128539 Mammogram Completed Medical Devices Description No Information Available Encounters Type Date Location Provider Dx Diagnosis Office Visit 05/01/2019 [facility] Forrest Myers H81.13 Benign paroxysmal 3:00p Of Christopher Meyer M.D. vertigo, bilateral I10 Essential (primary) hypertension I42.9 Cardiomyopathy, unspecified I50.32 Chronic diastolic (congestive) heart failure Office Visit 04/22/2019 [facility] Donald Andrea H81.13 Benign 12:15p Neurologic MAmy paroxysmal [facility] vertigo, bilateral R00.2 Palpitations H53.8 Other visual disturbances R20.2 Paresthesia of skin R56.9 Unspecified convulsions R53.83 Other fatigue Office Visit 03/27/2019 9:00a [facility] Forrest Myers R06.00 Dyspnea, Of Christopher Meyer M.D. unspecified I42.9 Cardiomyopathy, unspecified I34.0 Nonrheumatic mitral (valve) insufficiency R60.0 Localized edema H81.13 Benign paroxysmal vertigo, bilateral R00.2 Palpitations Office Visit 03/10/2019 Isaac GallagherHoa I42.9 Cardiomyopathy, 2:30p Cardiology Deejay, N.PHoa unspecified I34.0 Nonrheumatic mitral (valve) insufficiency R60.0 Localized edema R06.00 Dyspnea, unspecified Office Visit 02/06/2019 10:00a [facility] Internal David Itz, H81.13 Benign paroxysmal Medicine - [facility] SEMICONDUCTOR TECHNICIAN vertigo, bilateral H53.8 Other visual disturbances Office Visit 01/29/2019 [facility] And Anh J45.909 Unspecified asthma , 10:45a Sleep Services Of MD Janay uncomplicated Christopher J98.4 Other disorders of lung G47.33 Obstructive sleep apnea (adult) (pediatric) Office Visit 12/25/2018 8:20a Rheumatology Manny M70.70 Other bursitis of Services Of Christopher Pickett M.D. hip, unspecified hip M54.2 Cervicalgia R20.2 Paresthesia of skin Office Visit 12/20/2018 3:40p [facility] Internal David Itz, SEMICONDUCTOR TECHNICIAN R10.11 Right upper Medicine - Ccmob quadrant pain R10.32 Left lower quadrant pain R33.8 Other retention of urine R10.812 Left upper quadrant abdominal tenderness M54.32 Sciatica, left side Office Visit 12/04/2018 2:40p [facility] Internal Earlene Sanderson, M54.2 Cervicalgia Medicine - [facility]cmob M.D. H81.13 Benign paroxysmal vertigo, bilateral R20.2 Paresthesia [...] H81.13 Benign paroxysmal vertigo, bilateral David Itz, SEMICONDUCTOR TECHNICIAN 02/06/2019 H53.8 Other visual disturbances David Mobley NP 01/29/2019 J45.909 Unspecified asthma, uncomplicated Anh Gustafson [...] R10.11 Right upper quadrant pain David Itz, SEMICONDUCTOR TECHNICIAN 12/20/2018 R10.32 Left lower quadrant pain David Itz, SEMICONDUCTOR TECHNICIAN 12/20/2018 R33.8 Other retention of urine David Itz, SEMICONDUCTOR TECHNICIAN 12/20/2018 R10.812 Left upper quadrant abdominal tenderness David Itz, SEMICONDUCTOR TECHNICIAN 12/20/2018 M54.32 Sciatica, left side David Itz, SEMICONDUCTOR TECHNICIAN 12/17/2018 I10 Essential (primary) hypertension Nurse Visit [...] Diamond Oneil MD at [facility]08/01/2019 10:15 am - Donald Andrea M.D. at [facility]02/09/2020 2:30 pm - Merced Beltre NP at [facility]10/27/2019 3:00 pm - Manny Pickett M.D. at [facility]umat[facility]02/25/2019 - Donald Andrea M.D.H81.13 Benign paroxysmal vertigo, bilateralFollow up:Follow up in 8 weeks (ok for lunch ) INGRID for recent [facility] neurology thodjojfllU89.8 Other visual qrvsnuquubsvW07.2 VkvkgblzmpjH40.2 Paresthesia of skinM54.32 Sciatica, left sideR53.83 Other gprwzccI83.18 Myalgia, other site Functional Status Description No Information Available Mental Status Description No Information Available Referrals Refer to Reason for Referral Status Appt Date Manny Richards M.D. Resderek referral to [facility] Sent Scheduling 03/14/19- they will call pt to schedule. FP Pt not scheduled yet 04/17/19 [address] [place] [address] [phone] Diamond Oneil MD Sent 02/04/2019 [address] [place] [address] [phone] [facility] Received Complete [address] [facility] [address] [facility] [address] [place] [address] [phone]
--- OUTSIDE RECORDS SUMMARY | 2019-05-27 15:02 | XMS REPORT | Continuity of Care Document ---
:1960 External Reference #:[id number] Author Name Donald Andrea M.D. (transmitted by agent of provider Bekah Lipscomb) Address [address] [facility] [facility], [place] [address] Care Team Providers Name Role Phone Cindi Quinteros FNP - Family Care Team Information [employer] Helper Julian Sanders MD - Cardiovascular Care Team Information [employer]per [phone] Disease David Mobley NP - Internal Medicine Care Team Information [employer]per [phone] Problems Active Problems Provider Date Rheumatic mitral [...] SIG Qnty Indications Ordering Date Provider Spironolactone 1 tablet by 90tabs Forrest Myers 05/05/2019 25mg mouth every day Lizeth Meyer Tablets Torsemide 1 by mouth prn 30tabs Forrest [...] hold) Fluticasone Propionate as needed Unknown Nasal [place] 24- Hour 50mcg/Act Suspension B Complex-B12 Unknown [...] Code Status Date Vaccine Reaction Lot # [id number] Given 11/09/2017 Influenza Virus Vaccine, Quadrivalent, Split, Preservative Free 03699 Given 11/24/2016 Zoster (Zostavax) No immediate [id number] reaction.. 14330 Given 11/18/2014 Influenza Virus 3Yrs & Over [...] Result H/L Range Note Basic Metabolic 03/27/2019 [facility] Sodium 138 mmol/L Normal 135-145 Panel [address] [place] [address] [phone] Potassium 4.6 mmol/L Normal 3.5-5.0 Chloride 102 mmol/L Normal 101-111 Co2 Carbon Dioxide 30 mmol/L Normal 22-32 Anion Gap 6 mmol/L Normal 2-11 Glucose 76 mg/dL Normal 70-100 Blood Urea Nitrogen 18 mg/dL Normal 6-24 Creatinine 0.85 mg/dL Normal 0.51-0.95 BUN/Creatinine Ratio 21.2 High 8-20 Calcium 9.7 mg/dL Normal 8.6-10.3 Egfr Non- 68.5 >60 Egfr 82.8 >60 1 Laboratory test 03/27/2019 [facility] C Reactive 7.83 mg/L Normal <8.01 finding [address] [facility] [place] [address] [phone] Erythrocyte Sed Rate 38 mm/Hr High 0-29 Iron & Iron Binding 03/27/2019 [facility] Iron 104 g/dL Normal 50-212 Capacity [address] [place] [address] [phone] Unsaturated Iron Binding < 443 g/dL Total Iron Binding Capacity 458 g/dL High 250-450 Transferrin 327 mg/dL Normal 203-362 % Iron Saturation 23 % Normal 15-55 Laboratory test 03/27/2019 [facility] Magnesium 2.2 mg/dL Normal 1.9-2.7 finding [address] [place] [address] [phone] B-Type Natriuretic Peptide BNP 19 pg/mL <=100 Ammonia 44 mcmol/L Normal 16-53 Basic Metabolic 03/20/2019 [facility] Sodium 140 mmol/L Normal 135-145 Panel [address] [place] [address] [phone] Potassium 4.4 mmol/L Normal 3.5-5.0 Chloride 104 mmol/L Normal 101-111 Co2 Carbon Dioxide 30 mmol/L Normal 22-32 Anion Gap 6 mmol/L Normal 2-11 Glucose 81 mg/dL Normal 70-100 Blood Urea Nitrogen 16 mg/dL Normal 6-24 Creatinine 1.15 mg/dL High 0.51-0.95 BUN/Creatinine Ratio 13.9 Normal 8-20 Calcium 9.6 mg/dL Normal 8.6-10.3 Egfr Non- 48.3 >60 Egfr 58.4 >60 2 CBC Auto 03/13/2019 [facility] White Blood 6.7 10^3/uL Normal 3.5-10.[address] [place] [address] [phone] Red Blood Count 3.77 10^6/uL Normal 3.70-4.87 [...] Red Blood Cells % 0.1 Laboratory 03/13/2019 [facility] TSH (Thyroid 3.02 Normal 0.34 -5.60 test finding [address] Stim Horm) mcIU/[place] [address] [phone] Vitamin B12 334 pg/mL Normal 180-914 3 Ferritin 88.1 ng/mL Normal 11-307 Comp Metabolic 03/13/2019 [facility] Sodium 140 mmol/L Normal 135-[address] [place], [place] [id number] [phone] Potassium 4.5 mmol/L Normal 3.5-5.0 Chloride 103 [...] Egfr 88.8 >60 4 Poc Urinalysis 01/29/2019 [facility] Poc Glucose, NEGATIVE Negative [address] [place] [address] [phone] Poc Bilirubin, Urine NEGATIVE Negative Poc Ketone, Urine NEGATIVE Negative Poc Specific [place], Urine 1.015 Normal 1.010-1.030 Poc Blood, Urine TRACE-LYSED Negative 5 Poc pH, Urine 7.0 Normal 5-9 Poc Protein, Urine NEGATIVE Negative Poc Urobilinogen, Urine 0.2 Negative Poc Nitrite, Urine NEGATIVE Negative Poc Leukocytes, Urine TRACE Negative Poc Color, Urine YELLOW Poc Clarity, Urine CLEAR Urine Culture And 01/29/2019 [facility] Urine Culture SEE RESULT 6, [address] [place] [address] [phone] Mumps Igg 01/02/2019 [facility] Mumps Virus Positive [address] [place] [address] [phone] Mumps IgG Antibody Index 3.4 9 Rubeola Measles 01/02/2019 [facility] Rubeola (Measles) Positive 10 Igg AB [address] [place] [address] [phone] Rubeola IgG Antibody Index 6.3 11 Laboratory test 01/02/2019 [facility] Rubella Immune Immune finding [address] [place] [address] [phone] CBC Auto Diff 12/20/2018 [facility] White Blood 7.6 Normal 3.5 -10.[address] Count 10^3/[place] [address] [phone] Red Blood Count 4.00 10^6/uL Normal 3.70-4.87 [...] Blood Cells % 0.0 Comp Metabolic 12/20/2018 [facility] Sodium 139 mmol/L Normal 135-[address] [place] [address] [phone] Potassium 5.0 mmol/L Normal 3.5-5.0 Chloride 103 [...] Egfr 69.5 >60 12 Laboratory test 12/20/2018 [facility] Lipase 37 U/L Normal 11.0-82.[address] [place] [address] [phone] Urinalysis 12/20/2018 [facility] Urine Color Yellow Profile [address] [place] [address] [phone] Urine Appearance Clear Urine Specific [place] 1.013 Normal 1.010-1.030 Urine pH 5.0 Normal [...] Present Abnormal Absent Urine Culture And 12/20/2018 [facility] Urine Culture SEE RESULT [address] [place] [address] [phone] Cytology 12/09/2018 [facility] Cytology SEE RESULT [address] [place] [address] [phone] PDFReport [id number] <SEE NOTE> Laboratory test 12/09/2018 [facility] Vitamin B12 361 pg/mL Normal 180-[address] [place] [address] [phone] Hemoglobin A1c (Glyco HGB) 5.4 % Normal 4.0-5.6 16 Glucose 100 mg/dL Normal 70-100 17 Hepatitis C Antibody 12/09/2018 [facility] HCV Index 0.01 s/c [address] [place] [address] [phone] Hepatitis C Antibody Negative Negative 1 Because [...] 5 Kidney failure <15 (or dialysis) 5 Venipuncturist: [id number] 7 SEE RESULT BELOW Name: PUSHPA PITTS : [address]: Sita Mendoza MD Acct: [id number] Unit: [id number] AGE: 58 Location: [facility] Re01/29/19 SEX: F Status: DEP ER SPEC: [id number] HO: 01/29/19-[address] [facility] [address]: Sita Mendoza MD REQ: [id number] RECD: 01/29/19 STATUS: KEVIN WESTON DR: Isaac Physicians David Mobley ADULT BASIC EDUCATION TEACHER _ SOURCE: URINE SPDESC: ORDERED: Urine Culture COMMENTS: [id number] Procedure Result Reported Site Urine Culture Final 01/30/19- 1507 ML Organism 1 STREP GROUP B Dixon Count 10-25,000 (Moderate) CFU/ML Susceptibility testing of penicillins and other B-lactams approved by FDA for treatment of Streptococcus pyogenes (Group A Strep) and Streptococcus agalactiae (Group B Strep) is not necessary for clinical purposes and need not be done routinely, since as with vancomycin, resistant strains have not been recognized. (CLSI U744-U85;p.66) Positive isolates will be saved for one week. Please call the Microbiology Laboratory if further susceptibility testing is needed. * ML - Main Lab . END OF REPORT DEPARTMENT OF PATHOLOGY, [address] [place] [address] Toño Lambert M.D. Director CLIA # [id number] 8 Results suggest response to immunization or prior exposure to the virus. REFERENCE VALUE Vaccinated: Positive (>=1.1 AI) Unvaccinated: Negative (<=0.8 AI) 9 Test Performed by: [facility] [address] [place] [address] Electronic Tester: Alex Olsen M.D. Ph.D.; CLIA# [id number] 10 Results suggest response to immunization or prior exposure to the virus. REFERENCE VALUE Vaccinated: Positive (>=1.1 AI) Unvaccinated: Negative (<=0.8 AI) 11 Test Performed by: [facility] [address] [place] [address] Electronic Tester: Alex Olsen M.D. Ph.D.; [facility]# [id number] 12 Because ethnic data is not always [...] Name: PUSHPA PITTS : [address]: aDvid Mobley NP Acct: [id number] Unit: [id number] AGE: 58 Location: [facility] Re12/20/18 SEX: F Status: REG REF SPEC: [id number] HO: 12/20/[address]: David Mobley NP REQ: [id number] RECD: 12/20/18 STATUS:COMP _ SOURCE: URINE SPDESC: ORDERED: Urine Culture Procedure Result Reported Site Urine Culture Final 12/21/18- 1709 ML Organism 1 STREP GROUP B Dixon Count 50-75,000 (Many) CFU/ML Susceptibility testing of penicillins and other B-lactams approved by FDA for treatment of Streptococcus pyogenes (Group A Strep) and Streptococcus agalactiae (Group B Strep) is not necessary for clinical purposes and need not be done routinely, since as with vancomycin, resistant strains have not been recognized. (CLSI R988-F55;p.66) Positive isolates will be saved for one week. Please call the Microbiology Laboratory if further susceptibility testing is needed. * ML - Main Lab . END OF REPORT DEPARTMENT OF PATHOLOGY, [address] [place] [address] Toño Lambert M.D. Director [facility] # [id number] 14 SEE RESULT BELOW Name: GREGGPUSHPA Green : [address]: Quyen Montero MD Acct: [id number] Unit: [id number] AGE: 58 Location: [facility] Re12/09/18 SEX: F Status: REG REF SPEC: [id number] HO: 12/09/[address] [facility] [address]: Quyen Montero MD REQ: [id number] RECD: 12/09/18 STATUS: ELIZABETH WESTON DR: David Mobley ADULT BASIC EDUCATION TEACHER _ ORDERED: TP IMAGE ANALYS, HPV/Thin Prep COMMENTS: [id number] FINAL DIAGNOSIS Negative for Intraepithelial lesion or [...] CONTINUED ON NEXT PAGE DEPARTMENT OF PATHOLOGY, [address] [place] [address] Toño Lambert M.D. Director [facility] # [id number] CYTOLOGY PATIENT INFORMATION Patient Information: HPV: High risk HPV RNA testing regardless of pap results. Actual Specimen Date: 12/09/18 Last Menstrual Date: 10/23/14 Date of Last Specimen: 12/04/17 Post Menopausal?: Y Signed by and Reported on: Martha RamosMARIAMA(ASCP) 1354 This Pap test was evaluated with the assistance of the [employer]illing[employer] Test Imaging System. Due to cytologic findings at the carpet layer helper microscope, comprehensive manual rescreening by a Ultrasound Technol may be required. The Pap Smear is [...] years. END OF REPORT DEPARTMENT OF PATHOLOGY, [address] [place] [address] Toño Lambert M.D. Director [facility] # [id number] 15 Normal Range 180 to 914 Indeterminate Range 145 to 180 Deficient Range <145 16 Therapeutic target for the treatment of diabetes mellitus patients is <7% HBA1C, and in selective patients <6.0%. Please refer to [place] [employer] diabetic care guidelines for further information. 17 FASTING 10 HOUR Procedures Date Code Description Status 05/01/2019 48077 EKG Tracing & Interpretation Completed 04/29/2019 16231 ECHO Transthoracic, Real-Time 2D With Doppler And Color Completed Flow 04/29/2019 06486 ECHO Transthoracic, Real-Time 2D With Doppler And Color Completed Flow 04/25/2019 87342 EEG Recording Awake & Asleep Completed 03/27/2019 52455 EKG Tracing & Interpretation Completed 03/10/2019 84954 EKG Tracing & Interpretation Completed 01/23/2019 24463 Diffusing Capacity Completed 01/23/2019 43116 Plethysmography Determination Lung Volumes & Per Airway Completed Resist 01/23/2019 01830 Pulmonary Function><Bronchodil Completed 01/13/2019 [id number] Mammogram Completed 02/19/2018 [id number] Mammogram Completed 01/09/2017 18387416 Mammogram Completed 01/10/2016 68078826 Mammogram Completed Medical Devices Description No Information Available Encounters Type Date Location Provider Dx Diagnosis Office Visit 05/02/2019 Neurosurgery Vassilios M47.892 Other 12:00p Services Of Christopher Oneil MD spondylosis, cervical region R20.2 Paresthesia of skin Office Visit 05/01/2019 3:00p [facility] Forrest Myers H81.13 Benign Of Christopher Meyer M.D. paroxysmal vertigo, bilateral I10 Essential (primary) hypertension I42.9 Cardiomyopathy, unspecified I50.32 Chronic diastolic (congestive) heart failure Office Visit 04/22/2019 [facility] Donald Andrea H81.13 Benign 12:15p Neurologic MHoaDHoa paroxysmal Services Of [facility] vertigo, bilateral R00.2 Palpitations H53.8 Other visual disturbances R20.2 Paresthesia of skin R56.9 Unspecified convulsions R53.83 Other fatigue Office Visit 03/27/2019 9:00a [facility] Ariela Myers R06.00 Dyspnea, Of Christopher Meyer M.D. unspecified I42.9 Cardiomyopathy, unspecified I34.0 Nonrheumatic mitral (valve) insufficiency R60.0 Localized edema H81.13 Benign paroxysmal vertigo, bilateral R00.2 Palpitations Office Visit 03/10/2019 Isaac Galeas I42.9 Cardiomyopathy, 2:30p Cardiology Deejay, N.PHoa unspecified I34.0 Nonrheumatic mitral (valve) insufficiency R60.0 Localized edema R06.00 Dyspnea, unspecified Office Visit 02/25/2019 [facility] Donald Andrea H81.13 Benign 8:30a Neurologic M.DHoa paroxysmal Services Of Technical Service Rep vertigo, bilateral H53.8 Other visual disturbances M54.2 Cervicalgia R20.2 Paresthesia of skin M54.32 Sciatica, left side R53.83 Other fatigue M79.18 Myalgia, other site Office Visit 02/06/2019 10:00a [facility] Internal David Mobley, H81.13 Benign [facility] ADULT BASIC EDUCATION TEACHER vertigo, bilateral H53.8 Other visual disturbances Office Visit 01/29/2019 Pulmonology And Anh J45.909 Unspecified asthma , 10:45a Sleep Services Of MD Janay uncomplicated Technical Service Rep J98.4 Other disorders of lung G47.33 Obstructive sleep apnea (adult) (pediatric) Office Visit 12/25/2018 8:20a Rheumatology Manny M70.70 Other bursitis of Services Of Christopher Pickett M.D. hip, unspecified hip M54.2 Cervicalgia R20.2 Paresthesia of skin Office Visit 12/20/2018 3:40p [facility] Internal Davidshea Mobley, ADULT BASIC EDUCATION TEACHER R10.11 Right upper Medicine - [facility] quadrant pain R10.32 Left lower quadrant pain R33.8 Other retention of urine R10.812 Left upper quadrant abdominal tenderness M54.32 Sciatica, left side Office Visit 12/04/2018 2:40p [facility] Internal Earlene Kin, M54.2 Cervicalgia [facility] [place] H81.13 Benign paroxysmal vertigo, bilateral R20.2 Paresthesia [...] 04/29/2019 I42.9 Cardiomyopathy, unspecified Traveling ECHO 1 04/25/2019 R94.01 Abnormal electroencephalogram [EEG] Kenney Coronel M.D. 04/22/2019 H81.13 Benign paroxysmal vertigo, bilateral Donald [...] H81.13 Benign paroxysmal vertigo, bilateral David Itz, ADULT BASIC EDUCATION TEACHER 02/06/2019 H53.8 Other visual disturbances David Itz, ADULT BASIC EDUCATION TEACHER 01/29/2019 J45.909 Unspecified asthma, uncomplicated Anh Gustafson [...] R10.11 Right upper quadrant pain David Itz, ADULT BASIC EDUCATION TEACHER 12/20/2018 R10.32 Left lower quadrant pain David Itz, ADULT BASIC EDUCATION TEACHER 12/20/2018 R33.8 Other retention of urine David Itz, ADULT BASIC EDUCATION TEACHER 12/20/2018 R10.812 Left upper quadrant abdominal tenderness David Itz, ADULT BASIC EDUCATION TEACHER 12/20/2018 M54.32 Sciatica, left side David Itz, ADULT BASIC EDUCATION TEACHER 12/17/2018 I10 Essential (primary) hypertension Nurse Visit [...] Diamond Oneil MD at Neurosurgery [facility]08/01/2019 10:15 am - Donald Andrea M.D. at [facility]02/09/2020 2:30 pm - Merced Beltre NP at Pulmonology And Sleep [facility]10/27/2019 3:00 pm - Manny Pickett M.D. at Rheumatology [facility]05/02/2019 - Diamond Oneil, MDM47.892 Other spondylosis, cervical regionFollow up:RV in 3 kqdztfA88.2 Paresthesia of skin Functional Status Description No Information Available Mental Status Description No Information Available Referrals Refer to Reason for Referral Status Appt Date Manny Richards M.D. Resent referral to [facility] Sent Scheduling 03/14/19- they will call pt to schedule. FP Pt not scheduled yet 04/17/19 [address] [place] [address] [phone] Diamond Oneil MD Sent 02/04/2019 [address] [place] [address] [place] [address] [phone] [facility] - Residents Received Complete [address] [facility] [address] [facility] [address] [place] [address] [phone]
--- OUTSIDE RECORDS SUMMARY | 2019-05-27 15:02 | XMS REPORT | Continuity of Care Document ---
:1960 External Reference #:[id number] Author Name Diamond Oneil MD Address [address] [facility] [address] , [place] [address] Care Team Providers Name Role Phone Cindi Quinteros FNP - Family Care Team Information Projector Booth Operator Julian Sanders MD - Cardiovascular Care Team Information Projector Booth Operator Disease David Mobley NP - Internal Medicine Care Team Information Projector Booth Operator Problems Active Problems Provider Date Rheumatic mitral [...] Tablets Fluticasone as needed Unknown Propionate Nasal Termo 24- Hour 50mcg/Act Suspension History Medications Lasix [...] NP 12/20/2018 - 20mg 03/09/[address] Guillaumes CPT Code Status Date Vaccine Reaction Lot # [id number] Given 11/09/2017 Influenza Virus Vaccine, Quadrivalent, Split, Preservative Free 17444 Given 11/24/2016 Zoster (Zostavax) No immediate [id number] reaction.. 76382 Given 11/18/2014 Influenza Virus 3Yrs & Over [...] Result H/L Range Note Basic Metabolic 03/27/2019 [facility] Sodium 138 mmol/L Normal 135-145 Panel [address] [place] [address] [phone] Potassium 4.6 mmol/L Normal 3.5-5.0 Chloride 102 mmol/L Normal 101-111 Co2 Carbon Dioxide 30 mmol/L Normal 22-32 Anion Gap 6 mmol/L Normal 2-11 Glucose 76 mg/dL Normal 70-100 Blood Urea Nitrogen 18 mg/dL Normal 6-24 Creatinine 0.85 mg/dL Normal 0.51-0.95 BUN/Creatinine Ratio 21.2 High 8-20 Calcium 9.7 mg/dL Normal 8.6-10.3 Egfr Non- 68.5 >60 Egfr 82.8 >60 1 Laboratory test 03/27/2019 [facility] C Reactive 7.83 mg/L Normal <8.01 finding 101 [facility] [address] [phone] Erythrocyte Sed Rate 38 mm/Hr High 0-29 Iron & Iron Binding 03/27/2019 [facility] Iron 104 g/dL Normal 50-[address] [place] [address] [phone] Unsaturated Iron Binding < 443 g/dL Total Iron Binding Capacity 458 g/dL High 250-450 Transferrin 327 mg/dL Normal 203-362 % Iron Saturation 23 % Normal 15-55 Laboratory test 03/27/2019 [facility] Magnesium 2.2 mg/dL Normal 1.9-2.[address] [place] [address] [phone] B-Type Natriuretic Peptide BNP 19 pg/mL <=100 Ammonia 44 mcmol/L Normal 16-53 Basic Metabolic 03/20/2019 [facility] Sodium 140 mmol/L Normal 135-[address] [place] [address] [phone] Potassium 4.4 mmol/L Normal 3.5-5.0 Chloride 104 mmol/L Normal 101-111 Co2 Carbon Dioxide 30 mmol/L Normal 22-32 Anion Gap 6 mmol/L Normal 2-11 Glucose 81 mg/dL Normal 70-100 Blood Urea Nitrogen 16 mg/dL Normal 6-24 Creatinine 1.15 mg/dL High 0.51-0.95 BUN/Creatinine Ratio 13.9 Normal 8-20 Calcium 9.6 mg/dL Normal 8.6-10.3 Egfr Non- 48.3 >60 Egfr 58.4 >60 2 CBC Auto 03/13/2019 [facility] White Blood 6.7 10^3/uL Normal 3.5-10.[address] [place] [address] [phone] Red Blood Count 3.77 10^6/uL Normal 3.70-4.87 [...] Red Blood Cells % 0.1 Laboratory 03/13/2019 [facility] TSH (Thyroid 3.02 Normal 0.34 -5.60 test finding [address] Stim Horm) mcIU/[place] [address] [phone] Vitamin B12 334 pg/mL Normal 180-914 3 Ferritin 88.1 ng/mL Normal 11-307 Comp Metabolic 03/13/2019 [facility] Sodium 140 mmol/L Normal 135-[address] [place] [address] [phone] Potassium 4.5 mmol/L Normal 3.5-5.0 Chloride 103 [...] Egfr 88.8 >60 4 Poc Urinalysis 01/29/2019 [facility] Poc Glucose, NEGATIVE Negative [address] [place] [address] [phone] Poc Bilirubin, Urine NEGATIVE Negative Poc Ketone, Urine NEGATIVE Negative Poc Specific [place], Urine 1.015 Normal 1.010-1.030 Poc Blood, Urine TRACE-LYSED Negative 5 Poc pH, Urine 7.0 Normal 5-9 Poc Protein, Urine NEGATIVE Negative Poc Urobilinogen, Urine 0.2 Negative Poc Nitrite, Urine NEGATIVE Negative Poc Leukocytes, Urine TRACE Negative Poc Color, Urine YELLOW Poc Clarity, Urine CLEAR Urine Culture And 01/29/2019 [facility] Urine Culture SEE RESULT 6, [address] [place] [address] [phone] Mumps Igg 01/02/2019 [facility] Mumps Virus Positive [address] [place] [address] [phone] Mumps IgG Antibody Index 3.4 9 Rubeola Measles 01/02/2019 [facility] Rubeola (Measles) Positive 10 Igg AB [address] [place] [address] [phone] Rubeola IgG Antibody Index 6.3 11 Laboratory test 01/02/2019 [facility] Rubella Immune Immune finding [address] [place] [address] [phone] CBC Auto Diff 12/20/2018 [facility] White Blood 7.6 Normal 3.5 -10.[address] Count 10^3/[place] [address] [phone] Red Blood Count 4.00 10^6/uL Normal 3.70-4.87 [...] Blood Cells % 0.0 Comp Metabolic 12/20/2018 [facility] Sodium 139 mmol/L Normal 135-[address] [place] [address] [phone] Potassium 5.0 mmol/L Normal 3.5-5.0 Chloride 103 [...] Egfr 69.5 >60 12 Laboratory test 12/20/2018 [facility] Lipase 37 U/L Normal 11.0-82.[address] [place] [address] [phone] Urinalysis 12/20/2018 [facility] Urine Color Yellow Profile [address] [place] [address] [phone] Urine Appearance Clear Urine Specific [place] 1.013 Normal 1.010-1.030 Urine pH 5.0 Normal [...] Present Abnormal Absent Urine Culture And 12/20/2018 [facility] Urine Culture SEE RESULT [address] [place] [address] [phone] Cytology 12/09/2018 [facility] Cytology SEE RESULT [address] [place] [address] [phone] PDFReport [id number] <SEE NOTE> Laboratory test 12/09/2018 [facility] Vitamin B12 361 pg/mL Normal 180-914 15 finding [address] [place] [address] [phone] Hemoglobin A1c (Glyco HGB) 5.4 % Normal 4.0-5.6 16 Glucose 100 mg/dL Normal 70-100 17 Hepatitis C Antibody 12/09/2018 [facility] HCV Index 0.01 s/c [address] [place] [address] [phone] Hepatitis C Antibody Negative Negative 1 Because [...] 5 Kidney failure <15 (or dialysis) 5 Director Education: [id number] 7 SEE RESULT BELOW Name: [place] : [address]: Sita Mendoza MD Acct: [id number] Unit: [id number] AGE: 58 Location: [facility] Re01/29/19 SEX: F Status: DEP ER SPEC: [id number] HO: 01/29/19-1257 [facility] DR: Sita Mendoza MD REQ: [id number] RECD: 01/29/19 STATUS: KEVIN WESTON DR: Isaac Priscila Mobley LOFTER _ SOURCE: URINE SPDESC: ORDERED: Urine Culture COMMENTS: [id number] Procedure Result Reported Site Urine Culture Final 01/30/19- 1507 ML Organism 1 STREP GROUP B Ridott Count 10-25,000 (Moderate) CFU/ML Susceptibility testing of penicillins and other B-lactams approved by FDA for treatment of Streptococcus pyogenes (Group A Strep) and Streptococcus agalactiae (Group B Strep) is not necessary for clinical purposes and need not be done routinely, since as with vancomycin, resistant strains have not been recognized. (CLSI H005-H78;p.66) Positive isolates will be saved for one week. Please call the Microbiology Laboratory if further susceptibility testing is needed. * - [facility] . END OF REPORT DEPARTMENT OF PATHOLOGY, [address] [place] [address] Toño Lambert M.D. Director [facility] # [id number] 8 Results suggest response to immunization or prior exposure to the virus. REFERENCE VALUE Vaccinated: Positive (>=1.1 AI) Unvaccinated: Negative (<=0.8 AI) 9 Test Performed by: [place] [address] Glucose And Syrup Weigher: Alex Olsen M.D. Ph.D.; CLIA# [id number] 10 Results suggest response to immunization or prior exposure to the virus. REFERENCE VALUE Vaccinated: Positive (>=1.1 AI) Unvaccinated: Negative (<=0.8 AI) 11 Test Performed by: [place] [address] Glucose And Syrup Weigher: Alex Olsen M.D. Ph.D.; CLIA# [id number] 12 Because ethnic data is not always [...] [address]: David Mobley NP Acct: [id number] Unit: [id number] AGE: 58 Location: [facility] Re12/20/18 SEX: F Status: REG REF SPEC: [id number] HO: 12/20/[address]: David Mobley NP REQ: [id number] RECD: 12/20/18 STATUS:COMP _ SOURCE: URINE SPDESC: ORDERED: Urine Culture Procedure Result Reported Site Urine Culture Final 12/21/18- 1709 ML Organism 1 STREP GROUP B Ridott Count 50-75,000 (Many) CFU/ML Susceptibility testing of penicillins and other B-lactams approved by FDA for treatment of Streptococcus pyogenes (Group A Strep) and Streptococcus agalactiae (Group B Strep) is not necessary for clinical purposes and need not be done routinely, since as with vancomycin, resistant strains have not been recognized. (CLSI G170-B93;p.66) Positive isolates will be saved for one week. Please call the Microbiology Laboratory if further susceptibility testing is needed. * ML - Main Lab . END OF REPORT DEPARTMENT OF PATHOLOGY, [address] [place] [address] Toño Lambert M.D. Director [facility] # [id number] 14 SEE RESULT BELOW Name: [place] P[place]TS : [address]: Quyen Montero MD Acct: [id number] Unit: [id number] AGE: 58 Location: [facility] Re12/09/18 SEX: F Status: REG REF SPEC: [id number] HO: 12/09/18 [facility] DR: Quyen Montero MD REQ: [id number] RECD: 12/09/18 STATUS: ELIZABETH WESTON DR: David Mobley LOFTER _ ORDERED: TP IMAGE ANALYS, HPV/Thin Prep COMMENTS: [id number] FINAL DIAGNOSIS Negative for Intraepithelial lesion or [...] CONTINUED ON NEXT PAGE DEPARTMENT OF PATHOLOGY, [address] [place] [address] Toño Lambert M.D. Director [facility] # [id number] CYTOLOGY PATIENT INFORMATION Patient Information: HPV: High risk HPV RNA testing regardless of pap results. Actual Specimen Date: 12/09/18 Last Menstrual Date: 10/23/14 Date of Last Specimen: 12/04/17 Post Menopausal?: Y Signed by and Reported on: MARIAMA Terrazas(ASCP) [id number] This Pap test was evaluated with the assistance of the Swapper TradePrep Test Imaging System. Due to cytologic findings at the lead engineer microscope, comprehensive manual rescreening by a Renewals Manager may be required. The Pap Smear is [...] years. END OF REPORT DEPARTMENT OF PATHOLOGY, [address] [place] [address] Toño Lamebrt M.D. Director [facility] # [id number] 15 Normal Range 180 to 914 Indeterminate Range 145 to 180 Deficient Range <145 16 Therapeutic target for the treatment of diabetes mellitus patients is <7% HBA1C, and in selective patients <6.0%. Please refer to [place] [employer] diabetic care guidelines for further information. 17 FASTING 10 HOUR Procedures Date Code Description Status 05/01/2019 16372 EKG Tracing & Interpretation Completed 04/29/2019 59102 ECHO Transthoracic, Real-Time 2D With Doppler And Color Completed Flow 03/27/2019 48222 EKG Tracing & Interpretation Completed 03/10/2019 87973 EKG Tracing & Interpretation Completed 01/23/2019 28183 Diffusing Capacity Completed 01/23/2019 24322 Plethysmography Determination Lung Volumes & Per Airway Completed Resist 01/23/2019 77423 Pulmonary Function><Bronchodil Completed 01/13/2019 [id number] Mammogram Completed 02/19/2018 30198646 Mammogram Completed 01/09/2017 92469144 Mammogram Completed 01/10/2016 [id number] Mammogram Completed Medical Devices Description No Information Available Encounters Type Date Location Provider Dx Diagnosis Office Visit 05/02/2019 Neurosurgery Vassilios M47.892 Other 12:00p Services Of Christopher Oneil MD spondylosis, cervical region Office Visit 04/22/2019 [facility] Christopher Emre, H81.13 Benign 12:15p Services Of Christopher Stanley paroxysmal vertigo, bilateral R00.2 Palpitations H53.8 Other visual disturbances R20.2 Paresthesia of skin R56.9 Unspecified convulsions R53.83 Other fatigue Office Visit 03/27/2019 9:00a [facility] Forrest Myers R06.00 Dyspnea, Of Christopher Meyer M.D. unspecified I42.9 Cardiomyopathy, unspecified I34.0 Nonrheumatic mitral (valve) insufficiency R60.0 Localized edema H81.13 Benign paroxysmal vertigo, bilateral R00.2 Palpitations Office Visit 03/10/2019 [facility] Yael Galeas I42.9 Cardiomyopathy, 2:30p Cardiology Deejay, N.PHoa unspecified I34.0 Nonrheumatic mitral (valve) insufficiency R60.0 Localized edema R06.00 Dyspnea, unspecified Office Visit 02/06/2019 10:00a [facility] Internal David Itz, H81.13 Benign paroxysmal Medicine - Ccmob LOFTER vertigo, bilateral H53.8 Other visual disturbances Office Visit 01/29/2019 Pulmonology And Anh J45.909 Unspecified asthma , 10:45a Sleep Services Of MD Janay uncomplicated [facility] J98.4 Other disorders of lung G47.33 Obstructive sleep apnea (adult) (pediatric) Office Visit 12/25/2018 8:20a Rheumatology Manny M70.70 Other bursitis of Services Of Christopher Pickett M.D. hip, unspecified hip M54.2 Cervicalgia R20.2 Paresthesia of skin Office Visit 12/20/2018 3:40p [facility] Internal David Itz, LOFTER R10.11 Right upper Medicine - Ccmob quadrant pain R10.32 Left lower quadrant pain R33.8 Other retention of urine R10.812 Left upper quadrant abdominal tenderness M54.32 Sciatica, left side Office Visit 12/04/2018 2:40p Inhalation Therapy Aides Teacher Internal Earlene Kin, M54.2 Cervicalgia Medicine - [facility] Lizeth H81.13 Benign paroxysmal vertigo, bilateral [...] Meyer M.D. failure 04/29/2019 I42.9 Cardiomyopathy, unspecified Traveling ECHO 1 [...] Meyer M.D. 03/10/2019 I42.9 Cardiomyopathy, unspecified Yael Galeas Deejay, N.P. 03/10/2019 I34.0 Nonrheumatic mitral (valve) insufficiency Yael SHoa Villalba, N.P. 03/10/2019 R60.0 Dependent edema Yael SHoa Villalba, N.P. 03/10/2019 R06.00 Dyspnea, unspecified Yael S. [...] H81.13 Benign paroxysmal vertigo, bilateral David Itz, LOFTER 02/06/2019 H53.8 Other visual disturbances David Itz, LOFTER 01/29/2019 J45.909 Unspecified asthma, uncomplicated Anh Gustafson [...] R10.11 Right upper quadrant pain David Itz, LOFTER 12/20/2018 R10.32 Left lower quadrant pain David Itz, LOFTER 12/20/2018 R33.8 Other retention of urine David Itz, LOFTER 12/20/2018 R10.812 Left upper quadrant abdominal tenderness David Itz, LOFTER 12/20/2018 M54.32 Sciatica, left side David Itz, LOFTER 12/17/2018 I10 Essential (primary) hypertension Nurse Visit A 12/04/2018 M54.2 Cervicalgia Earlene Sanderson M.D. 12/04/2018 H81.13 Benign paroxysmal vertigo, bilateral Earlene Sanderson M.D. 12/04/2018 R20.2 Paresthesia of skin Earlene Sanderson M.D. 12/04/2018 I10 Essential (primary) hypertension Earlene Sanderson M.D. 12/04/2018 Z11.59 Encounter for screening for other viral Earlene Sanderson M.D. diseases Plan of Treatment Future Appointment(s):08/01/2019 10:15 am - Donald Andrea M.D. at [facility]02/09/2020 2:30 pm - Merced Beltre NP at [facility]10/27/2019 3:00 pm - Manny Pickett M.D. at [facility]05/02/2019 - Diamond Oneil, MDM47.892 Other spondylosis, cervical regionNew Orders:EMG w/Nerve Conduct Study, Upper, Ordered: 05/02/19Follow up:RV in 3 months Functional Status Description No Information Available Mental Status Description No Information Available Referrals Refer to Reason for Referral Status Appt Date Manny Richards M.D. Resent referral to [facility] Sent Scheduling 03/14/19- they will call pt to schedule. FP Pt not scheduled yet 04/17/19 [address] [place] [address] [phone] Diamond Oneil MD Sent 02/04/2019 [address] [place] [address] [place] [address] [phone] [facility] - Residents Received Complete [address] [facility] [address] [facility]ulatory [facility] [address] [place] [address] [phone]
--- NOTE | 2019-05-27 15:12 | ED ---
Altered Mental Status - HPI Summary HPI Summary: This patient is a 58 y/o female presenting to [facility] c/o episodes of confusion. Patient reports confusion is not uncommon for her but these episodes have been getting worse. Today she states she is feeling better. Denies any alleviating or aggravating factors. She denies any headaches or visual changes. Denies fever , chest pain, shortness of breath, palpitations, nausea, vomiting, diarrhea, constipation. Patient spoke with her primary care provider and was instructed to come to the emergency department. Home Medications Medication Instructions Recorded Confirmed Type Levothyroxine TAB* [Synthroid 25 50 mcg PO QAM 08/28/13 05/27/19 History MCG TAB*] Metoprolol Succinate XL TAB* 12.5 mg PO BEDTIME 07/08/18 05/27/19 History [Toprol XL TAB*] Albuterol inh POWDER (NF) [Proair 1 puff INH Q6HR PRN 05/27/19 05/27/19 History Respiclick] Losartan TAB* [Cozaar TAB*] 25 mg PO DAILY 05/27/19 05/27/19 History Spironolactone TAB* [Aldactone 25 mg PO DAILY 05/27/19 05/27/19 History TAB*] Ursodiol CAP* [Actigall CAP 300 600 mg PO BID 05/27/19 05/27/19 History MG*] - History Of Current Complaint Chief Complaint: EDAltMentalStatus Stated Complaint: AMS Time Seen by Provider: 05/27/19 14:58 Hx Obtained From: Patient Hx Last Menstrual Period: age 54 Onset/Duration: Still Present Timing: Lasting Days Severity Currently: Moderate Character: Confusion Aggravating Factor(s): Nothing Alleviating Factor(s): Nothing Associated Signs And Symptoms: Positive: Negative. Negative: Nausea, Vomiting, Fever, Headache - Allergies/Home Medications Allergies/Adverse Reactions: Allergies Allergy/AdvReac Type Severity Reaction Status Date / Time nickel Allergy Severe Rash Verified 03/25/19 06:51 Sulfa (Sulfonamide Allergy Severe Hives- Verified 03/25/19 06:51 Antibiotics) after 4 month regimen Adhesive Tape Allergy Intermediate Blisters Verified 03/25/19 06:51 ciprofloxacin Allergy Unknown Verified 03/25/19 06:51 Reaction Details nitrofurantoin Allergy Unknown Verified 03/25/19 06:51 [From Macrobid] Reaction Details titanium Allergy Swelling Verified 05/27/19 14:50 latex AdvReac Mild Rash Verified 03/25/19 06:51 Triple Antibiotic Oinment Allergy Intermediate Swelling Uncoded 03/25/19 06:51 environment Allergy Eyes Uncoded 03/25/19 06:51 Itchy/Swollen/Red/Watery Home Medications: Home Medications Levothyroxine TAB* [Synthroid 25 MCG TAB*] 50 mcg PO QAM 08/28/13 [History Confirmed 05/27/19] Metoprolol Succinate XL TAB* [Toprol XL TAB*] 12.5 mg PO BEDTIME 07/08/18 [ History Confirmed 05/27/19] Albuterol inh POWDER (NF) [Proair Respiclick] 1 puff INH Q6HR PRN 05/27/19 [ History Confirmed 05/27/19] Cholecalciferol TAB* [Vitamin D TAB*] 2,000 units PO DAILY 05/27/19 [History Confirmed 05/27/19] Losartan TAB* [Cozaar TAB*] 25 mg PO DAILY 05/27/19 [History Confirmed 05/27/19] Spironolactone TAB* [Aldactone TAB*] 25 mg PO DAILY 05/27/19 [History Confirmed 05/27/19] Torsemide TAB* [Demadex*] 20 mg PO DAILY PRN 05/27/19 [History Confirmed ] Ursodiol CAP* [Actigall CAP 300 MG*] 600 mg PO BID 05/27/19 [History Confirmed 05/27/19] PMH/Surg Hx/FS Hx/Imm Hx Endocrine/Hematology History: Reports: Hx Thyroid Disease, Hx Anemia - slight Denies: Hx Diabetes Cardiovascular History: Reports: Hx Hypertension - on meds, Hx Rheumatic Fever, Hx Valvular Heart Disease - mitral valve murmur Denies: Hx Pacemaker/ICD, Other Cardiovascular Problems/Disorders Respiratory History: Reports: Hx Sleep Apnea Denies: Hx Asthma, Other Respiratory Problems/Disorders GI History: Reports: Hx Cirrhosis, Hx Gastroesophageal Reflux Disease Denies: Other GI Disorders History: Reports: Hx Kidney Stones - history of, Other Problems/Disorders - long history of bladder infections Denies: Hx Dialysis, Hx Renal Disease Musculoskeletal History: Reports: Hx Arthritis - Big toe left foot, Hx Tendonitis - post tibial tendonitis on left Denies: Hx Bursitis, Other Musculoskeletal History Sensory History: Reports: Hx Contacts or Glasses - glasses Denies: Hx Hearing Aid Opthamlomology History: Reports: Hx Contacts or Glasses - glasses Neurological History: Reports: Hx Migraine - outgrown Denies: Other Neuro Impairments/Disorders Psychiatric History: Denies: Hx Panic Disorder - Cancer History Cancer Type, Location and Year: breast ca dx 01/10/18-NO TREATMENTS AT THIS TIME 12/17/18. MELANOMA Hx Chemotherapy: No - Surgical History Surgery Procedure, Year, and Place: B/L bunionectomy also prior to 1994. Bilateral bunionectomy, 1994. bunionectomy L foot. MALIGNANT MELANOMA REMOVED 2009, left foot. DERMAFIBROMA REMOVED 2009, right arm. scar tissue left foot 1995. 06/12/2016-OSTEOTOMY LEFT HEEL/TIBIAL TENDON REPAIR. LIVER BIOPSY. lymph node removal 02/12/18. resection of mastectomy RIGHT BREAST X2 port removal Hx Anesthesia Reactions: No Infectious Disease History: No Infectious Disease History: Denies: History Other Infectious Disease, Traveled Outside the [place] in Last 30 Days Comment Only: Hx Hepatitis - bilary colongitis - Family History Known Family History: Positive: None Negative: Cardiac Disease, Hypertension - Social History Alcohol Use: None Substance Use Type: Reports: None Smoking Status (MU): Former Smoker Amount Used/How Often: 1990s, for 2 years Have You Smoked in the Last Year: No Review of Systems Negative: Fever Negative: Other - NEGATIVE: visual changes Negative: Palpitations, Chest Pain Negative: Shortness Of Breath Negative: Vomiting, Diarrhea, Nausea, Other - NEGATIVE: constipation Negative: Headache All Other Systems Reviewed And Are Negative: Yes Physical Exam - Summary Physical Exam Summary: VITAL SIGNS: Reviewed. GENERAL: Patient is a well-developed and nourished female who is lying comfortable in the stretcher. Patient is not in any acute respiratory distress. HEAD AND FACE: No signs of trauma. No ecchymosis, hematomas or skull depressions. No sinus tenderness. EYES: PERRLA, EOMI x 2, No injected conjunctiva, no nystagmus. EARS: Hearing grossly intact. Ear canals and tympanic membranes are within normal limits. MOUTH: Oropharynx within normal limits. NECK: Supple, trachea is midline, no adenopathy, no JVD, no carotid bruit, no c- spine tenderness, neck with full ROM. CHEST: Symmetric, no tenderness at palpation LUNGS: Clear to auscultation bilaterally. No wheezing or crackles. CVS: Regular rate and rhythm, S1 and S2 present, no murmurs or gallops appreciated. ABDOMEN: Soft, non-tender. No signs of distention. No rebound no guarding, and no masses palpated. Bowel sounds are normal. EXTREMITIES: FROM in all major joints, no edema, no cyanosis or clubbing. NEURO: Alert and oriented x 3. No acute neurological deficits. Speech is normal and follows commands. SKIN: Dry and warm GCS: 15 Triage Information Reviewed: Yes Vital Signs On Initial Exam: Initial Vitals Temp Pulse Resp BP Pulse Ox 97.9 F 79 18 173/102 99 05/27/19 14:44 05/27/19 14:44 05/27/19 14:44 05/27/19 14:44 05/27/19 14:44 Vital Signs Reviewed: Yes Procedures - Sedation Patient Received Moderate/Deep Sedation with Procedure: No Diagnostics - Vital Signs Vital Signs Temp Pulse Resp BP Pulse Ox 05/27/19 14:44 97.9 F 79 18 173/102 99 - Laboratory Result Diagrams: 05/27/19 15:14 05/27/19 15:14 Lab Statement: Any lab studies that have been ordered have been reviewed, and results considered in the medical decision making process. - Radiology Chest XR Radiology Interpretation Completed By: Radiologist Summary of Radiographic Findings: IMPRESSION: No active cardiopulmonary disease is noted. Dr. Heller has reviewed this report. - CT Brain CT CT Interpretation Completed By: Radiologist Summary of CT Findings: IMPRESSION: No intracranial mass or hemorrhage is noted. Dr. Heller has reviewed this report. - EKG 1505 Cardiac Rate: NL - at 65 bpm EKG Rhythm: Sinus Rhythm Summary of EKG Findings: EKG at 1505 shows sinus rhythm at a rate of [address] elevations. This EKG was interpreted and reviewed by ED physician. Altered Mental Statu Course/Dx - Course Assessment/Plan: This patient is a 58 y/o female presenting to [facility] c/o episodes of confusion. Patient reports confusion is not uncommon for her but these episodes have been getting worse. Today she states she is feeling better. Denies any alleviating or aggravating factors. She denies any headaches or visual changes. Denies fever, chest pain, shortness of breath, palpitations, nausea, vomiting, diarrhea, constipation. Patient spoke with her primary care provider and was instructed to come to the emergency department. In the ED course the patient was placed in a nurse monitoring, IV access was obtained, IV fluids were started. Past medical records reviewed. Blood test w/o a significant abnormality except for glucose of 120, urinalysis is negative for UTI, urine toxicology is negative. Head CT shows no acute intracranial pathology. Chest x-ray shows no acute cardiopulmonary disease. I discussed my physical exam and findings with Dr. Andrade from neurology and he reports that the patient had an MRI 2 months ago with negative results, she also had an EEG with also negative results. Therefore he recommends to check the TSH, T4 and vitamin B12 and if they are normal the patient can be discharged home with follow up from Dr. Andrea. Labs are within normal limits. At this point, I discussed all the findings and test results with the patient. Patient was instructed to return to the emergency room immediately if any of the symptoms return or worsen.Plan of care was discussed with the patient and the patient understands and agrees. All questions were answered at patient satisfaction. Patient understands and agrees. Neurological exam before discharge: Patient is alert and oriented x 3. No acute neurological deficits. Patient's vital signs are stable. Patient is to follow up with her PCP in the next 2 3 days. They understand and agree. The plan of care was discussed with the patient and the patient understands and agrees with the plan of care. All questions were answered at patient satisfaction. There were no further complaints or concerns. - Diagnoses Provider Diagnoses: Confusion, Intermittent confusion - Provider Notifications Discussed Care Of Patient With: Bradley Andrade - neurologist Time Discussed With Above Provider: 16:08 Instructed by Provider To: Other - Discussed the case with Dr. Andrade, neurologist, who reports patient had a brain MRI 2 months ago that resulted normal, as well as an EEG 1 month ago that resulted normal. He recommends checking TSH, free T4, and vitamin B12 levels and if normal patient can be discharged home with follow up from Dr. Andrea. - Critical Care Time Critical Care Statement: Critical care time is provided exclusive of any time spent performing procedures. Discharge ED - Sign-Out/Discharge Documenting (check all that apply): Patient Departure - Discharge home - Discharge Plan Condition: Stable Disposition: HOME Patient Education Materials: Altered Mental Status (ED) Referrals: David Mobley NP [Primary Care Provider] - Capo Andrea MD [Medical Doctor] - Additional Instructions: Follow up with Dr. Andrea, neurologist. FOLLOW UP WITH YOUR PRIMARY CARE PROVIDER IN 2-3 DAYS. RETURN TO THE EMERGENCY DEPARTMENT FOR ANY WORSENING OR NEW SYMPTOMS. - Billing Disposition and Condition Condition: STABLE Disposition: Home - Attestation Statements Document Initiated by Scribe: Yes Documenting Scribe: Sita Ponce Provider For Whom Scribe is Documenting (Include Credential): Vin Heller MD Scribe Attestation: Sita Vidal, scribed for Vin Heller MD on 05/28/19 at 1226. Scribe Documentation Reviewed: Yes Provider Attestation: The documentation as recorded by the Sita alan accurately reflects the service I personally performed and the decisions made by me, Vin Heller MD Status of Scribe Document: Viewed
[2019-05-27 15:23] LABS: Urine Appearance Clear; Urine Bilirubin Negative (Negative); Urine Blood Negative (Negative); Urine Color Straw; Urine Glucose Negative (Negative); Urine Ketones Negative (Negative); Urine Nitrite Negative (Negative); Urine Protein Negative (Negative); Urine Specific Gravity 1.009 (1.010-1.030); Urine Urobilinogen Negative (Negative)
[2019-05-27 15:36] LABS: Activated Partial Thrombo Time 35.4 seconds (26.0-38.0); INR 0.99 (0.82-1.09)
[2019-05-27 15:42] LABS: Alcohol < 10 mg/dL (<10)
[2019-05-27 15:42] LABS: Urine Benzodiazepine Screen None Detected (None Detect); Urine Opiates Screen None Detected (None Detect)
[2019-05-27 15:44] LABS: ALT 22 U/L (7-52); AST 26 U/L (13-39); Albumin 4.4 g/dL (3.2-5.2); Albumin/Globulin Ratio 1.4 (1-3); Alkaline Phosphatase 103 U/L (34-104); Anion Gap 8 mmol/L (2-11); BUN/Creatinine Ratio 25.6 (8-20); Blood Urea Nitrogen 21 mg/dL (6-24); CO2 Carbon Dioxide 28 mmol/L (22-32); Calcium 9.5 mg/dL (8.6-10.3); Chloride 101 mmol/L (101-111); Cholesterol 291 mg/dL; EGFR African American 86.3 (>60); EGFR Non-African American 71.4 (>60); Globulin 3.2 g/dL (2-4); Glucose 120 mg/dL (70-100); HDL Cholesterol 46.6 mg/dL; LDL Cholesterol 186 mg/dL; Sodium 137 mmol/L (135-145); Total Protein 7.6 g/dL (6.4-8.9); Triglycerides 293 mg/dL
[2019-05-27] MEDS ORDERED: NS 0.9% 1000 ML** 1,000 ML IV ONE (16:12)
[2019-05-27 16:54] LABS: ABS Basophils 0.1 10^3/ul (0-0.2); ABS Eosinophils 0.2 10^3/ul (0-0.6); ABS Lymphocytes 1.7 10^3/ul (1.0-4.8); ABS Monocytes 0.5 10^3/ul (0-0.8); ABS Neutrophils 5.1 10^3/ul (1.5-7.7); Eosinophil % 2.8 %; Hematocrit 37 % (35-47); Hemoglobin 12.9 g/dL (12.0-16.0); Mean Corpuscular HGB Conc 35 g/dL (31-36); Mean Corpuscular Hemoglobin 32 pg (27-31); Mean Corpuscular Volume 92 fL (80-97); Mean Platelet Volume 8.7 fL (7.4-10.4); Platelet Count 380 10^3/uL (150-450); Red Blood Count 4.03 10^6 /uL (3.70-4.87); Red Cell Distribution Width 13 % (10-15); White Blood Count 7.7 10^3/uL (3.5-10.8)
[2019-05-27 18:16] LABS: TSH (Thyroid Stimulating Horm) 2.63 mcIU/mL (0.34-5.60)
[2019-05-27 18:18] LABS: Free T4 0.82 ng/dL (0.61-1.12)
[2019-05-27 18:49] VITALS: BP 171/88
== END 2019-05-27 18:48 | disposition home or self-care (01) ==
LOC: ED 14:42
DX: R41.0 Disorientation, unspecified (principal); Z87.891 Personal history of nicotine dependence; E03.9 Hypothyroidism, unspecified; K21.9 Gastro-esophageal reflux disease without esophagitis; I10 Essential (primary) hypertension; Z87.442 Personal history of urinary calculi; Z79.899 Other long term (current) drug therapy; Z79.890 Hormone replacement therapy; Z85.3 Personal history of malignant neoplasm of breast; Z88.2 Allergy status to sulfonamides; Z88.8 Allergy status to other drugs, medicaments and biological substances; R94.31 Abnormal electrocardiogram [ECG] [EKG]
CPT/HCPCS: 36415; 70450; 71045; 80053; 80061; 80307; 80320; 81003; 82607; 83605; 84439; 84443; 84484; 85025; 85610; 85730; 93005; 96374; 99283; G0480